=== PATIENT | female | born 1955 | race African-American/Black ===

== ENCOUNTER 2020-05-28 09:23 | Outpatient (CLI) | payer MEDICARE, MEDICAID, SELFPAY ==
--- NOTE | ~2020-05-28 | US_ITS ---
EXAMINATION: US abdomen complete EXAM DATE: 05/28/2020 10:22 INDICATION: Iron metabolism disorder. TECHNIQUE: Multiple grayscale and Doppler images of the complete abdomen were obtained (by a technolo gist who performed the scan) and subsequently reviewed. There is no prior study for comparison. FINDINGS: The abdominal aorta is normal in caliber. Visualized portion IVC is patent. The pancreatic head a nd body are normal in appearance. The pancreatic tail is not visualized. The liver has normal echogenicity and contour. Mildly echogenic liver, probably hepatic steatosis. There is no evidence of intrahepatic biliary duct dilation. Portal venous flow was seen in the hepat opedal, normal direction and has normal Doppler waveform. Common bile duct measures 10 mm, which is for postcholecystectomy status. The gallbladder fossa is u nremarkable. Right kidney: There is normal contour and echogenicity. It measures 7.3 x 3.7 x 5.2 centimeters. T here are no focal renal lesions identified. There is no hydronephrosis. Left kidney: There is normal contour and echogenicity. It measures 10.4 x 5.4 x 4.0 centimeters. T here are no focal renal lesions identified. There is no hydronephrosis. The spleen measures 7.4 centimeters and is morphologically normal. IMPRESSION: 1. Hepatic steatosis. Reviewed, dictated and finalized at location B. IMPRESSION: 1. Hepatic steatosis.
== END 2020-05-28 09:24 | disposition home or self-care (01) ==
PROVIDERS: PCP Emergency Medicine; Visit Provider Emergency Medicine
DX: E83.10 Disorder of iron metabolism, unspecified (principal); K76.0 Fatty (change of) liver, not elsewhere classified
CPT/HCPCS: 76700

== ENCOUNTER 2020-07-22 17:16 | Inpatient (IN) | payer MEDICARE, MEDICAID, SELFPAY ==
--- NOTE | ~2020-07-22 | XR_ITS ---
EXAMINATION: XR chest 1V portable DATE: 07/22/2020 17:52 INDICATION: COVID positive. Shortness of breath and weakness. TECHNIQUE: frontal view of the chest was obtained. COMPARISON: Chest radiograph dated 01/31/2019 FINDINGS: Unchanged right apical pleural-parenchymal scarring. New subtle patchy airspace opacities in the bila teral mid and lower lung zones. No pleural effusion or pneumothorax. The cardiomediastinal silhouette is normal. Severe thoracic spondylosis. IMPRESSION: 1. Subtle patchy airspace opacities in the bilateral mid to lower lung zones concerning for pneumonia with differential including atelectasis and pulmonary edema. Reviewed, dictated and finalized at location A. I CRAFT MAINTENANCE TECHNICIAN IMPRESSION: 1. Subtle patchy airspace opacities in the bilateral mid to lower lung zones co ncerning for pneumonia with differential including atelectasis and pulmonary ed shay.
--- NOTE | ~2020-07-22 | US_ITS ---
EXAMINATION: US abdomen limited DATE: 07/26/2020 09:18 INDICATION: Abnormal liver function tests. TECHNIQUE: Multiple grayscale and Doppler ultrasound images of the abdomen were obtained. COMPARISON: Ultrasound 05/28/2020 FINDINGS: The visualized portions of the head and body of the pancreas are normal. There is diffuse h epatic steatosis. No liver surface nodularity. There is normal flow in main portal vein. The gallblad hal is absent. The common duct is normal and measures 9 mm. Right kidney is normal. IMPRESSION: 1. Diffuse hepatic steatosis. Reviewed, dictated and finalized at location A. SKIMMER
[2020-07-22 17:18] VITALS: BP 101/73; PULSE 111; RESP 24; TEMP 37.1; O2SAT 91
--- NOTE | 2020-07-22 17:23 | ECG_ITS ---
Measurements Intervals [place] Rate: 105 P: 70 KS: 149 QRS: 67 QRSD: 76 T: 47 QT: 343 QTc: 455 Interpretive Statements SINUS TACHYCARDIA NONSPECIFIC ST & T-WAVE ABNORMALITY- ANT/INF LEADS BASELINE ARTIFACT- V5-V6 ABNORMAL ECG Electronically Signed On 07-23-2020 6:56:28 KILN LOADER by Matty Carter D.O.
--- NOTE | 2020-07-22 17:40 | ED.GENADULT ---
HPI - General Adult General Chief complaint: Shortness of Breath/Dyspnea Stated complaint: sob Time Seen by Provider: 07/22/20 17:31 Source: patient History of Present Illness HPI narrative: Patient is a 64 y/o female complaining of severe SOB for last 3-4 days. She states the walking and minimal exertion makes her SOB worse. She has some cough, subjective fever and diarrhea. She had COVID test 8 days ago and was told that it was positive 2 days ago. Related Data Allergies Allergy/AdvReac Type Severity Reaction Status Date / Time codeine Allergy Unknown Unknown Verified 04/24/19 17:54 propoxyphene Allergy Unknown Other Verified 04/24/19 17:54 Review of Systems Constitutional: Constitutional: Denies chills, Denies fever(s), Denies headache(s) and Denies weakness Eyes: Eyes: Denies blurry vision ENT: Denies headache(s) and Denies neck pain Cardiovascular: Cardiovascular: Denies chest pain and Reports dyspnea Respiratory: Respiratory: Reports cough and Reports dyspnea Gastrointestinal: Gastrointestinal: Denies abdominal pain, Reports diarrhea, Denies nausea and Denies vomiting Genitourinary: Genitourinary: Denies hematuria and Denies dysuria Musculoskeletal: Musculoskeletal: Denies back pain and Denies neck pain Neurologic: Denies headache(s) and Denies weakness PMF Social History Social History Gender identity (if verbalized by the patient): Female Exam Const: General: well developed and acute distress Orientation/consciousness: oriented to person, oriented to place, oriented to time and patient oriented x3 HENMT: Head: normocephalic Ears: external ears normal General nose exam: Normal external nose present Eyes: General: appearance normal, both eyes and all related structures Conjunctivae: conjunctivae normal Neck: Neck: normal visual inspection and full ROM Chest: Chest palpation & inspection: normal inspection of the chest and no tenderness Resp: Effort & Inspection: able to speak in complete sentences and tachypneic Cardio: Rate: tachycardic Rhythm: regular rhythm GI: GI Palp: No abdominal tenderness and Yes Soft to palpation Skin: General skin exam: normal color and turgor normal Neuro: General: oriented to person, oriented to place, oriented to time and patient oriented x3 Cognition (Neuro): normal cognition Extrem: General: normal to inspection, full ROM and no pedal edema Psych: Appearance: grossly normal Mental Status: mental status grossly normal Affect: normal affect Course Consultations Consultation #1: Discussed with ELISABETH Trevizo, who agrees to admit. Date: 07/22/20 Time: 18:30 Vital Signs Vital signs: Vital Signs Temperature 37.1 C 07/22/20 17:18 Pulse Rate 111 H 07/22/20 17:18 Respiratory Rate 24 H 07/22/20 17:18 Blood Pressure 101/73 07/22/20 17:18 Pulse Oximetry 91 07/22/20 17:18 Temperature 37.1 C 07/22/20 17:18 Pulse Rate 98 07/22/20 19:06 Respiratory Rate 18 07/22/20 19:06 Blood Pressure 122/78 07/22/20 19:06 Pulse Oximetry 96 07/22/20 19:06 Medical Decision Making Vital Signs Vital Signs: Vital Signs Temperature 37.1 C 07/22/20 17:18 Pulse Rate 111 H 07/22/20 17:18 Respiratory Rate 24 H 07/22/20 17:18 Blood Pressure 101/73 07/22/20 17:18 Pulse Oximetry 91 07/22/20 17:18 Temperature 37.1 C 07/22/20 17:18 Pulse Rate 98 07/22/20 19:06 Respiratory Rate 18 07/22/20 19:06 Blood Pressure 122/78 07/22/20 19:06 Pulse Oximetry 96 07/22/20 19:06 Lab Data Result diagrams: 07/22/20 17:46 07/22/20 17:46 Labs: Lab Results 07/22/20 07/22/20 Range/Units 17:46 17:46 WBC 6.0 (4.5-10.0) K/mm3 RBC 5.21 (4.2-5.4) M/mm3 Hgb 14.1 (12.0-15.0) g/dL Hct 43.2 (37.0-47.0) % MCV 82.9 (80-100) fl MCH 27.1 (26-34) pg MCHC 32.6 (32-36) g/dl RDW 13.0 (11.5-14.5) % Plt Count 161 (150-375)
[2020-07-22 17:57] LABS: Basophils Percent Auto 0.2 % (0.2-1.2); Eosinophils Percent Auto 0.3 % (0-4.4); Hematocrit 43.2 % (37.0-47.0); Hemoglobin 14.1 g/dL (12.0-15.0); Immature Granulocyte Absolute 0.02 K/mm3 (0.00-0.031); Immature Granulocyte Percent A 0.3 % (0-0.5); Lymphocytes Absolute Auto 1.49 K/mm3 (0.9-3.2); Mean Corpuscular HGB Conc 32.6 g/dl (32-36); Mean Corpuscular Hemoglobin 27.1 pg (26-34); Mean Corpuscular Volume 82.9 fl (80-100); Mean Platelet Volume 10.8 fl (7.4-10.4); Monocytes Absolute Auto 0.6 K/mm3 (0.1-0.6); Monocytes Percent Auto 9.4 % (2.6-8.5); Neutrophils Absolute Auto 3.9 K/mm3 (1.3-6.7); Neutrophils Percent Auto 64.8 % (45.5-73.1); Platelet Count Result 161 k/mm3 (150-375); Red Blood Count 5.21 M/mm3 (4.2-5.4)
[2020-07-22] MEDS: SODIUM CHLORIDE 0.9% IV 1,000 ML 999 ML IV CONT (18:06)
[2020-07-22 18:10] LABS: Alanine Aminotransferase 87 U/L (4-35); Alkaline Phosphatase 111 U/L (38-126); Anion Gap 9 mmol/L (8-16); Aspartate Amino Transferase 82 U/L (14-36); Bilirubin,Total 0.7 mg/dL (0.2-1.3); Blood Urea Nitrogen 23 mg/dL (7-17); Calcium 9.1 mg/dL (8.4-10.2); Carbon Dioxide 29 mmol/L (22-30); Chloride 98 mmol/L (98-107); Estimated CRCL calculation 54 ml/min; Estimated Glomerular Filt Rate 60; Glucose 117 mg/dL (65-105); Potassium 4.1 mmol/L (3.4-5.0); Sodium 136 mmol/L (137-145)
[2020-07-22 18:15] VITALS: PULSE 78; O2SAT 89
[2020-07-22 19:06] VITALS: BP 122/78; PULSE 98; RESP 18; O2SAT 96
--- NOTE | 2020-07-22 19:07 | PM.IMHP ---
H&P: HPI History of Present Illness Date/Time: 07/22/20 19:07 Chief complaint: hypoxia, covid infection Narrative: Chetna Steele is a 64 year old female [facility] Social History Social History Gender identity (if verbalized by the patient): Female Meds Home Medications and Allergies Allergies Allergy/AdvReac Type Severity Reaction Status Date / Time codeine Allergy Unknown Unknown Verified 04/24/19 17:54 propoxyphene Allergy Unknown Other Verified 04/24/19 17:54 Vital Signs Vital Signs - 24 hr 07/22/20 17:18 07/22/20 18:15 07/22/20 19:06 Temperature 98.7 F Pulse Rate 111 H 78 98 Respiratory Rate 24 H 18 Blood Pressure 101/73 122/78 Pulse Oximetry 91 89 L 96 H&P: Results Labs Labs: Short CBC 07/22/20 Range/Units 17:46 WBC 6.0 (4.5-10.0) K/mm3 Hgb 14.1 (12.0-15.0) g/dL Hct 43.2 (37.0-47.0) % Plt Count 161 (150-375) k/mm3 [facility] 07/22/20 17:46 Sodium 136 L Potassium 4.1 Chloride 98 Carbon Dioxide 29 BUN 23 H Creatinine 1.10 H Glucose 117 H Calcium 9.1 Liver Function 07/22/20 Range/Units 17:46 Total Bilirubin 0.7 (0.2-1.3) mg/dL AST 82 H (14-36) U/L ALT 87 H (4-35) U/L Alkaline Phosphatase 111 (38-126) U/L Albumin 4.0 (3.5-5.1) g/dL
[2020-07-22] MEDS: DEXAMETHASONE 2 MG TABLET 6 MG PO (19:14)
[2020-07-22] MEDS: REMDESIVIR 200 MG/NS 250 ML 200 MG/250 ML BAG 250 MG IVPB (19:18)
--- NOTE | 2020-07-22 19:45 | PC.NURSE ---
This patient, Chetna Steele, was admitted to [facility] Surg Room 312-01. Patient/family oriented to hospital policies and general routines including ID bracelet, bed and alarms, visiting hours, pain management, procedures, bathroom and other care routines, personal items, smoking policy, room service/diet, and visiting hours. Information on how to activate the Rapid Response Team has been discussed. Patient/Family are encouraged to report perceived risks to care and to ask questions if they do not understand what they are told or what they should do.
[2020-07-22 20:00] VITALS: BP 133/69; PULSE 93; RESP 22; TEMP 37.4; O2SAT 95; BMI 39.0
[2020-07-22 22:13] VITALS: BP 133/69; PULSE 93; RESP 22; TEMP 37.4; O2SAT 95; BMI 39.0
[2020-07-23] VITALS (8 sets, daily range): BP systolic 117–146; BP diastolic 60–71; PULSE 60–82; RESP 18–20; TEMP 36.1–36.9; O2SAT 91–95
[2020-07-23 06:49] LABS: Alanine Aminotransferase 90 U/L (4-35)
[2020-07-23 07:49] LABS: Estimated CRCL calculation 54 ml/min; Estimated Glomerular Filt Rate > 60
[2020-07-23 08:51] LABS: Hematocrit 39.9 % (37.0-47.0); Hemoglobin 12.7 g/dL (12.0-15.0); Immature Granulocyte Absolute 0.02 K/mm3 (0.00-0.031); Immature Granulocyte Percent A 0.5 % (0-0.5); Lymphocytes Absolute Auto 0.88 K/mm3 (0.9-3.2); Lymphocytes Percent Auto 22.8 % (18.3-44.2); Mean Corpuscular HGB Conc 31.8 g/dl (32-36); Mean Corpuscular Hemoglobin 26.4 pg (26-34); Mean Platelet Volume 11.3 fl (7.4-10.4); Monocytes Absolute Auto 0.3 K/mm3 (0.1-0.6); Neutrophils Absolute Auto 2.7 K/mm3 (1.3-6.7); Neutrophils Percent Auto 69.7 % (45.5-73.1); Platelet Count Result 182 k/mm3 (150-375); Red Blood Count 4.81 M/mm3 (4.2-5.4); Red Cell Distribution Width 13.1 % (11.5-14.5); White Blood Count 3.9 K/mm3 (4.5-10.0)
[2020-07-23 08:54] LABS: Alanine Aminotransferase 94 U/L (4-35); Albumin Level 3.6 g/dL (3.5-5.1); Alkaline Phosphatase 99 U/L (38-126); Anion Gap 8 mmol/L (8-16); Aspartate Amino Transferase 75 U/L (14-36); Bilirubin,Total 0.3 mg/dL (0.2-1.3); Blood Urea Nitrogen 22 mg/dL (7-17); Calcium 8.8 mg/dL (8.4-10.2); Carbon Dioxide 28 mmol/L (22-30); Chloride 102 mmol/L (98-107); Estimated CRCL calculation 54 ml/min; Estimated Glomerular Filt Rate > 60; Glucose 134 mg/dL (65-105); Potassium 4.3 mmol/L (3.4-5.0); Sodium 138 mmol/L (137-145)
[2020-07-23] MEDS: METOPROLOL SUCCINATE EXT REL 50 MG TABCR PO (08:57)
[2020-07-23] MEDS: BENZONATATE 100 MG CAPSULE PO (08:57)
[2020-07-23] MEDS: hydroCHLOROthiazide 25 MG TABLET PO (08:58)
[2020-07-23] MEDS: PANTOPRAZOLE 40 MG TABLET PO (08:58)
[2020-07-23] MEDS: DEXAMETHASONE 2 MG TABLET 6 MG PO (08:58)
[2020-07-23] MEDS: DOXAZOSIN MESYLATE 2 MG TABLET PO (08:58)
[2020-07-23] MEDS: SPIRONOLACTONE 25 MG TABLET PO (08:58)
[2020-07-23] MEDS: LOSARTAN POTASSIUM 100 MG TABLET PO (08:58)
[2020-07-23] MEDS: ALBUTEROL SULFATE (*SP) AEROSOL 1 PUFF 2 PUFF INHALATION ×2 (12:06→15:45)
--- NOTE | 2020-07-23 13:35 | PM.IMHP ---
H&P: HPI History of Present Illness Date/Time: 07/23/20 13:35 Chief complaint: hypoxia, covid infection Narrative: Chetna Steele is a pleasant 64 year old female with medical history of HTN and GERD who presented to the ER on 07/22 with complaints of worsening SOB and cough for 2-3 days prior to arrival on 07/22. She tested positive for COVID on 07/16. Patient states her symptoms started roughly 07/14 with chills, shortness of breath, headaches, and non-bloody diarrhea. She got tested on that day and was positive on 07/16. She notes she was having mild symptoms up until 3-4 days ago where her SOB worsened, as well as her diarrhea. She notes that Benzonatate and Lomotil has not improved her symptoms. Her worsening symptoms got to a point where she decided to proceed to the ED for further evaluation where she was found to be hypoxic on RA and placed on supplemental O2. CXR was consistent with pneumonia. Given her recent diagnosis of COVID and findings suggestive of pneumonia, she was placed on remdesivir and decadron therapy and admitted under this setting. Today, patient states she feels overall better then when she first came to the hospital. SOB improved, as well as her diarrhea. She has no associated abdominal pain. She reports her appetite has improved as well. Her cough is nonproductive. She notes that she has had been wearing masks and socially distancing when out in public, and in fact, gets emotional stating I did everything I was told to do and have no idea I got this . No other complaints at the moment. Denies current subjective f/c/s, myalgias/arthralgias, loss of taste/smell, dizziness, lightheadedness, changes in v/h, cp/palpitations, n/v, abd pain,dysuria, hematuria, cloudy urine, calf pain/swelling. Review of Systems Review of Systems: All systems reviewed & are unremarkable except as noted in HPI and below PMFSH Past Medical History Medical History Essential hypertension GERD (gastroesophageal reflux disease) Surgical History Surgical History History of History of cholecystectomy Family History Family History Mother Diabetes mellitus Social History Social History (Updated 07/23/20 @ 13:49 by Jama Epps PA-C) Social History: Patient lives at home alone. She is no longer working. She wishes to list her son, Vinicius, as her surrogate MDM. She wishes to be a full code. Her PCP is Dr. Chavarria Smoking status: Former smoker Smoking end date: 08/23/89 Additional smoking assessment comments: Smoked 2ppd x 6 years. Quit 30 years ago Alcohol intake: never Substance use: never Gender identity (if verbalized by the patient): Female Spiritual care concerns: No Meds Home Medications and Allergies Home Medications Medication Instructions Recorded Confirmed Type acetaminophen 500 mg PO Q6H PRN 07/22/20 07/22/20 History benzonatate 100 mg PO Q8H PRN 07/22/20 07/22/20 History diphenoxylate-atropine 1 tablet PO Q6H PRN 07/22/20 07/22/20 History doxazosin 2 mg PO DAILY 07/22/20 07/22/20 History hydrochlorothiazide 25 mg PO DAILY 07/22/20 07/22/20 History losartan 100 mg PO DAILY 07/22/20 07/22/20 History metoprolol succinate 50 mg PO DAILY 07/22/20 07/22/20 History omeprazole 20 mg PO DAILY 07/22/20 07/22/20 History spironolactone 25 mg PO DAILY 07/22/20 07/22/20 History Allergies Allergy/AdvReac Type Severity Reaction Status Date / Time codeine Allergy Unknown Unknown Verified 07/22/20 20:07 propoxyphene Allergy Unknown Other Verified 07/22/20 20:07 Vital Signs Vital Signs - 24 hr 07/22/20 17:18 07/22/20 18:15 07/22/20 19:06 Temperature 98.7 F Pulse Rate 111 H 78 98 Respiratory Rate 24 H 18 Blood Pressure 101/73 122/78 Pulse Oximetry 91 89 L 96 07/22/20 20:00 07/22/20 22:13 07/23/20 00:00 Temperature 99.4
[2020-07-23] MEDS: EUCERIN CREAM 120 GM JAR 1 APPLIC TOPICAL (14:12)
[2020-07-23] MEDS: guaiFENesin 12 HR 600 MG TABCR PO ×2 (14:16→21:48)
[2020-07-23] MEDS: SACCHAROMYCES BOULARDII 250 MG CAPSULE PO (18:01)
[2020-07-23] MEDS: ALBUTEROL SULFATE (*SP) INHALER 1 PUFF (21:00)
[2020-07-23] MEDS: ENOXAPARIN 40 MG/0.4 ML SYRINGE SUB-Q (21:48)
[2020-07-23] MEDS: REMDESIVIR 100 MG/NS 250 ML 100 MG/250 ML BAG 250 MG IVPB (21:49)
[2020-07-24] VITALS (8 sets, daily range): BP systolic 127–138; BP diastolic 52–64; PULSE 58–66; RESP 18–22; TEMP 36.3–36.7; O2SAT 91–96
[2020-07-24 06:54] LABS: Basophils Percent Auto 0.2 % (0.2-1.2); Hemoglobin 13.3 g/dL (12.0-15.0); Immature Granulocyte Absolute 0.02 K/mm3 (0.00-0.031); Immature Granulocyte Percent A 0.3 % (0-0.5); Lymphocytes Absolute Auto 1.02 K/mm3 (0.9-3.2); Lymphocytes Percent Auto 16.7 % (18.3-44.2); Mean Corpuscular HGB Conc 32.4 g/dl (32-36); Mean Corpuscular Hemoglobin 27.1 pg (26-34); Mean Corpuscular Volume 83.7 fl (80-100); Mean Platelet Volume 10.9 fl (7.4-10.4); Monocytes Absolute Auto 0.6 K/mm3 (0.1-0.6); Monocytes Percent Auto 10.5 % (2.6-8.5); Neutrophils Absolute Auto 4.4 K/mm3 (1.3-6.7); Neutrophils Percent Auto 72.3 % (45.5-73.1); Platelet Count Result 207 k/mm3 (150-375); Red Cell Distribution Width 13.2 % (11.5-14.5); White Blood Count 6.1 K/mm3 (4.5-10.0)
[2020-07-24 07:13] LABS: Alanine Aminotransferase 95 U/L (4-35); Albumin Level 3.7 g/dL (3.5-5.1); Alkaline Phosphatase 90 U/L (38-126); Anion Gap 4 mmol/L (8-16); Aspartate Amino Transferase 69 U/L (14-36); Bilirubin,Total 0.4 mg/dL (0.2-1.3); Blood Urea Nitrogen 31 mg/dL (7-17); CRP 4.5 mg/dL (<1.0); Calcium 9.4 mg/dL (8.4-10.2); Carbon Dioxide 31 mmol/L (22-30); Chloride 101 mmol/L (98-107); Estimated CRCL calculation 54 ml/min; Estimated Glomerular Filt Rate > 60; Glucose 150 mg/dL (65-105); Lactate Dehydrogenase 889 U/L (313-618); Magnesium 2.2 mg/dL (1.6-2.3); Potassium 4.9 mmol/L (3.4-5.0); Sodium 136 mmol/L (137-145)
[2020-07-24] MEDS: DEXAMETHASONE 2 MG TABLET 6 MG PO (08:50)
[2020-07-24] MEDS: SACCHAROMYCES BOULARDII 250 MG CAPSULE PO ×3 (08:51→17:47)
[2020-07-24] MEDS: guaiFENesin 12 HR 600 MG TABCR PO ×2 (08:51→20:40)
[2020-07-24] MEDS: METOPROLOL SUCCINATE EXT REL 50 MG TABCR PO (08:51)
[2020-07-24] MEDS: PANTOPRAZOLE 40 MG TABLET PO (08:51)
[2020-07-24] MEDS: SPIRONOLACTONE 25 MG TABLET PO (08:51)
[2020-07-24] MEDS: hydroCHLOROthiazide 25 MG TABLET PO (08:51)
[2020-07-24] MEDS: LOSARTAN POTASSIUM 100 MG TABLET PO (08:51)
[2020-07-24] MEDS: DOXAZOSIN MESYLATE 2 MG TABLET PO (08:51)
[2020-07-24] MEDS: ALBUTEROL SULFATE (*SP) AEROSOL 1 PUFF 2 PUFF INHALATION ×5 (08:51→20:20)
[2020-07-24] MEDS: ENOXAPARIN 40 MG/0.4 ML SYRINGE SUB-Q ×2 (08:51→20:40)
[2020-07-24] MEDS: EUCERIN CREAM 120 GM JAR 1 APPLIC TOPICAL (08:52)
[2020-07-24 09:09] LABS: Atypical Lymphocytes Present; Platelet Estimate Adequate (Adequate)
--- NOTE | 2020-07-24 17:40 | PM.IMPN ---
Progress Note: A&P Assessment and Plan (1) Pneumonia due to COVID-19 virus: Code(s): U07.1 - COVID-19; J12.89 - Other viral pneumonia Status: Acute Assessment and Plan: Patient reports testing positive on 07/14 around when her symptoms first started. CXR suggestive of pneumonia; likely due to COVID. Still on 2L O2 NC. Symptomatically has improved. Started on remdesivir and decadron therapy in the ED Continue Remdesivir (3/5) Continue dexamethasone (day 3) Continue supportive care with Tylenol, PRN albuterol, Mucinex, IS Supplemental O2; wean as tolerated Lomotil as needed for diarrhea; will continue probiotic for now Monitor closely Daily labs (2) Acute respiratory failure with hypoxia: Code(s): J96.01 - Acute respiratory failure with hypoxia Status: Acute Assessment and Plan: Likely secondary from COVID pneumonia. On 2L O2 currently Wean O2 as tolerated Treatment as outlined above (3) GERD (gastroesophageal reflux disease): Code(s): K21.9 - Gastro-esophageal reflux disease without esophagitis Status: Acute Assessment and Plan: PPI therapy (4) Essential hypertension: Code(s): I10 - Essential (primary) hypertension Status: Acute Assessment and Plan: BP stable 130s sys this morning Continue home antihypertensives Monitor Subjective Date/time seen: 07/24/20 17:40 Interval history: Patient is a pleasant 64 year old female with medical history of HTN and GERD who is seen in follow up for COVID PNA and acute respiratory failure with hypoxia likely due to same. patient states she feels well today. Less SOB, particularly when ambulating. Cough has improved, as well as, her headaches and diarrhea. No other complaints. Denies f/c/s, dizziness, lightheadedness, cp/palpitations, abd pain, dysuria, hematuria, cloudy urine, calf pain/swelling. Review of Systems Review of Systems: All systems reviewed & are unremarkable except as noted in HPI and below Exam Narrative: Exam Narrative: General: Patient sitting upright in chair at time of visit in no acute distress. HEENT: Normocephalic, EOMI, oral mucosa moist. Cardiovascular: Rate and rhythm are regular. No notable murmur, rub, or gallop. Respiratory: Diffuse coarse breath sounds-kurt. Non-labored breathing. On 2L O2 NC at time of visit Abdomen: Soft, non-tender, non-distended, bowel sounds present. Extremities: Peripheral pulses intact. No edema. Neuro: No focal neurological deficits. Speech is clear. Objective Data Vital Signs Vital Signs: Last Vital Signs Temp 98.0 F 07/24/20 16:00 Pulse 58 L 07/24/20 16:00 Resp 18 07/24/20 16:00 BP 134/52 L 07/24/20 16:00 Pulse Ox 96 07/24/20 16:00 Intake/Output Intake/Output: Intake & Output 07/21/20 07/22/20 07/23/20 07/24/20 23:59 23:59 23:59 23:59 Intake Total 1000 1750 1430 Output Total 475 950 Balance 1000 1275 480 Meds/Results Medications: Active Medications Generic Name Dose Route Start Last Admin Trade Name Freq PRN Reason Stop Dose Admin Acetaminophen 650 mg 07/23/20 08:04 Acetaminophen 325 Mg Tablet PO Q6H PRN Mild Pain (1-3) or Fever Albuterol 2 puff 07/23/20 08:00 07/24/20 15:45 Albuterol Sulfate (*Sp) Aerosol 1 Puff INHALATION 2 puff QIDRT GISELLA Administration Benzonatate 100 mg 07/23/20 05:10 07/23/20 08:57 Benzonatate 100 Mg Capsule PO 100 mg Q8H PRN Administration Cough Dexamethasone 6 mg 07/22/20 18:20 07/24/20 08:50 Dexamethasone 2 Mg Tablet PO 07/31/20 08:01 6 mg DAILY@0800 GISELLA Administration Diphenoxylate HCl/Atropine 1 tablet 07/23/20 04:32 Diphenoxylate/Atropine (*Crx) 2.5 Mg Tablet PO Q6H PRN Diarrhea Doxazosin Mesylate 2 mg 07/23/20 09:00 07/24/20 08:51 Doxazosi
[2020-07-24] MEDS: REMDESIVIR 100 MG/NS 250 ML 100 MG/250 ML BAG 250 MG IVPB (23:32)
[2020-07-25] VITALS (9 sets, daily range): BP systolic 111–137; BP diastolic 55–72; PULSE 55–67; RESP 16–20; TEMP 35.7–36.8; O2SAT 91–97
[2020-07-25 06:27] LABS: Basophils Percent Auto 0.2 % (0.2-1.2); Hematocrit 41.7 % (37.0-47.0); Hemoglobin 13.5 g/dL (12.0-15.0); Immature Granulocyte Absolute 0.05 K/mm3 (0.00-0.031); Immature Granulocyte Percent A 0.5 % (0-0.5); Lymphocytes Absolute Auto 1.71 K/mm3 (0.9-3.2); Lymphocytes Percent Auto 16.9 % (18.3-44.2); Mean Corpuscular HGB Conc 32.4 g/dl (32-36); Mean Corpuscular Hemoglobin 26.7 pg (26-34); Mean Corpuscular Volume 82.4 fl (80-100); Mean Platelet Volume 10.7 fl (7.4-10.4); Monocytes Absolute Auto 0.7 K/mm3 (0.1-0.6); Monocytes Percent Auto 6.6 % (2.6-8.5); Neutrophils Absolute Auto 7.7 K/mm3 (1.3-6.7); Neutrophils Percent Auto 75.8 % (45.5-73.1); Platelet Count Result 265 k/mm3 (150-375); Red Blood Count 5.06 M/mm3 (4.2-5.4); White Blood Count 10.1 K/mm3 (4.5-10.0)
[2020-07-25 06:46] LABS: Alanine Aminotransferase 372 U/L (4-35); Albumin Level 3.8 g/dL (3.5-5.1); Alkaline Phosphatase 100 U/L (38-126); Anion Gap 7 mmol/L (8-16); Aspartate Amino Transferase 328 U/L (14-36); Bilirubin,Total 0.4 mg/dL (0.2-1.3); Blood Urea Nitrogen 27 mg/dL (7-17); Calcium 9.3 mg/dL (8.4-10.2); Carbon Dioxide 28 mmol/L (22-30); Chloride 100 mmol/L (98-107); Estimated CRCL calculation 59 ml/min; Estimated Glomerular Filt Rate > 60; Glucose 152 mg/dL (65-105); Magnesium 1.9 mg/dL (1.6-2.3); Potassium 4.2 mmol/L (3.4-5.0); Sodium 135 mmol/L (137-145)
[2020-07-25 07:23] LABS: Atypical Lymphocytes Present; Platelet Estimate Adequate (Adequate)
[2020-07-25] MEDS: ALBUTEROL SULFATE (*SP) AEROSOL 1 PUFF 2 PUFF INHALATION ×4 (08:04→20:39)
[2020-07-25] MEDS: DEXAMETHASONE 2 MG TABLET 6 MG PO (08:17)
[2020-07-25] MEDS: LOSARTAN POTASSIUM 100 MG TABLET PO (08:18)
[2020-07-25] MEDS: guaiFENesin 12 HR 600 MG TABCR PO ×2 (08:18→21:00)
[2020-07-25] MEDS: SACCHAROMYCES BOULARDII 250 MG CAPSULE PO ×3 (08:18→17:41)
[2020-07-25] MEDS: SPIRONOLACTONE 25 MG TABLET PO (08:18)
[2020-07-25] MEDS: ENOXAPARIN 40 MG/0.4 ML SYRINGE SUB-Q ×2 (08:18→21:00)
[2020-07-25] MEDS: METOPROLOL SUCCINATE EXT REL 50 MG TABCR PO (08:18)
[2020-07-25] MEDS: PANTOPRAZOLE 40 MG TABLET PO (08:18)
[2020-07-25] MEDS: hydroCHLOROthiazide 25 MG TABLET PO (08:18)
[2020-07-25] MEDS: EUCERIN CREAM 120 GM JAR 1 APPLIC TOPICAL (08:18)
[2020-07-25] MEDS: DOXAZOSIN MESYLATE 2 MG TABLET PO (08:18)
--- NOTE | 2020-07-25 14:02 | PM.IMPN ---
Progress Note: A&P Assessment and Plan (1) Pneumonia due to COVID-19 virus: Code(s): U07.1 - COVID-19; J12.89 - Other viral pneumonia Status: Acute Assessment and Plan: Patient reports testing positive on 07/14 around when her symptoms first started. CXR suggestive of pneumonia; likely due to COVID. Still on 1L O2 NC. Symptomatically has improved. Started on remdesivir and decadron therapy in the ED Will need to hold Remdesivir (10/25) due to elevated LFTs Continue dexamethasone (day 4) Continue supportive care with Tylenol, PRN albuterol, Mucinex, IS Supplemental O2; wean as tolerated Lomotil as needed for diarrhea; will continue probiotic for now Monitor closely Daily labs (2) Acute respiratory failure with hypoxia: Code(s): J96.01 - Acute respiratory failure with hypoxia Status: Acute Assessment and Plan: Likely secondary from COVID pneumonia. On 1L O2 currently Wean O2 as tolerated Treatment as outlined above (3) GERD (gastroesophageal reflux disease): Code(s): K21.9 - Gastro-esophageal reflux disease without esophagitis Status: Acute Assessment and Plan: PPI therapy (4) Essential hypertension: Code(s): I10 - Essential (primary) hypertension Status: Acute Assessment and Plan: BP stable 130s sys this morning Continue home antihypertensives Monitor (5) Elevated LFTs: Code(s): R79.89 - Other specified abnormal findings of blood chemistry Status: Acute Assessment and Plan: Patient has had mildly elevated LFTs previous days, however, now has significant increase. initially felt due to acute COVID infection, now possibly Remdesivir adding to elevation. Tysoni is WNL. She is s/p cholecystectomy. No known history of liver disease hold remdesivir Switch Tylenol to ibuprofen Monitor tomorrow, if no improvement consider imaging of liver Subjective Date/time seen: 07/25/20 14:02 Interval history: Patient is a pleasant 64 year old female with medical history of HTN and GERD who is seen in follow up for COVID PNA and acute respiratory failure with hypoxia likely due to same. Patient states she thinks her breathing is a bit more labored since she was taken down to 1L O2, but otherwise not many complaints. She is a bit tired from not sleeping well last night. Cough, diarrhea and headache have improved. No other complaints. Denies f/c/s, dizziness, lightheadedness, cp/palpitations, abd pain, dysuria, hematuria, cloudy urine, calf pain/swelling. Review of Systems Review of Systems: All systems reviewed & are unremarkable except as noted in HPI and below Exam Narrative: Exam Narrative: General: Patient lying supine in bed at time of visit in no acute distress. HEENT: Normocephalic, EOMI, oral mucosa moist. Cardiovascular: Rate and rhythm are regular. No notable murmur, rub, or gallop. Respiratory: Diffuse coarse breath sounds-kurt. Non-labored breathing. On 1L O2 NC at time of visit Abdomen: Soft, non-tender, non-distended, bowel sounds present. Extremities: Peripheral pulses intact. No edema. Neuro: No focal neurological deficits. Speech is clear. Objective Data Vital Signs Vital Signs: Last Vital Signs Temp 97.0 F L 07/25/20 12:00 Pulse 67 07/25/20 13:18 Resp 20 07/25/20 13:18 BP 120/55 L 07/25/20 12:00 Pulse Ox 93 07/25/20 13:18 Intake/Output Intake/Output: Intake & Output 07/22/20 07/23/20 07/24/20 07/25/20 23:59 23:59 23:59 23:59 Intake Total 1000 1750 1670 1020 Output Total 475 950 Balance 1000 2539 647 7253 Meds/Results Medications: Active Medications Generic Name Dose Route Start Last Admin Trade Name Freq PRN Reason Stop Dose Admin Acetaminophen 650 mg 07/23/20 08:04 Acetaminophen 32
[2020-07-25] MEDS: CALCIUM CARBONATE (TUMS) 500 MG (200 MG ELEMENTAL) PO (15:54)
[2020-07-26] VITALS (11 sets, daily range): BP systolic 113–131; BP diastolic 23–84; PULSE 54–68; RESP 16–20; TEMP 35.7–36.8; O2SAT 89–98
[2020-07-26 06:32] LABS: Basophils Percent Auto 0.3 % (0.2-1.2); Hematocrit 42.1 % (37.0-47.0); Hemoglobin 13.6 g/dL (12.0-15.0); Immature Granulocyte Absolute 0.07 K/mm3 (0.00-0.031); Immature Granulocyte Percent A 0.7 % (0-0.5); Lymphocytes Absolute Auto 1.92 K/mm3 (0.9-3.2); Lymphocytes Percent Auto 18.1 % (18.3-44.2); Mean Corpuscular HGB Conc 32.3 g/dl (32-36); Mean Corpuscular Hemoglobin 26.4 pg (26-34); Mean Corpuscular Volume 81.7 fl (80-100); Monocytes Absolute Auto 0.9 K/mm3 (0.1-0.6); Monocytes Percent Auto 8.9 % (2.6-8.5); Neutrophils Absolute Auto 7.6 K/mm3 (1.3-6.7); Platelet Count Result 286 k/mm3 (150-375); Red Blood Count 5.15 M/mm3 (4.2-5.4); Red Cell Distribution Width 12.7 % (11.5-14.5); White Blood Count 10.6 K/mm3 (4.5-10.0)
[2020-07-26 06:45] LABS: Alanine Aminotransferase 349 U/L (4-35); Albumin Level 3.8 g/dL (3.5-5.1); Alkaline Phosphatase 101 U/L (38-126); Anion Gap 7 mmol/L (8-16); Aspartate Amino Transferase 150 U/L (14-36); Bilirubin,Total 0.6 mg/dL (0.2-1.3); Blood Urea Nitrogen 26 mg/dL (7-17); CRP 1.4 mg/dL (<1.0); Calcium 9.3 mg/dL (8.4-10.2); Carbon Dioxide 29 mmol/L (22-30); Chloride 99 mmol/L (98-107); Estimated CRCL calculation 59 ml/min; Estimated Glomerular Filt Rate > 60; Glucose 146 mg/dL (65-105); Lactate Dehydrogenase 910 U/L (313-618); Magnesium 1.8 mg/dL (1.6-2.3); Potassium 4.2 mmol/L (3.4-5.0); Sodium 135 mmol/L (137-145)
[2020-07-26 07:48] LABS: Atypical Lymphocytes Present; Platelet Estimate Adequate (Adequate)
[2020-07-26] MEDS: ALBUTEROL SULFATE (*SP) AEROSOL 1 PUFF 2 PUFF INHALATION ×4 (08:32→21:23)
[2020-07-26] MEDS: SACCHAROMYCES BOULARDII 250 MG CAPSULE PO ×3 (09:40→17:26)
[2020-07-26] MEDS: SPIRONOLACTONE 25 MG TABLET PO (09:40)
[2020-07-26] MEDS: DOXAZOSIN MESYLATE 2 MG TABLET PO (09:40)
[2020-07-26] MEDS: hydroCHLOROthiazide 25 MG TABLET PO (09:40)
[2020-07-26] MEDS: DEXAMETHASONE 2 MG TABLET 6 MG PO (09:40)
[2020-07-26] MEDS: EUCERIN CREAM 120 GM JAR 1 APPLIC TOPICAL (09:41)
[2020-07-26] MEDS: ENOXAPARIN 40 MG/0.4 ML SYRINGE SUB-Q ×2 (09:41→21:29)
[2020-07-26] MEDS: PANTOPRAZOLE 40 MG TABLET PO (09:41)
[2020-07-26] MEDS: METOPROLOL SUCCINATE EXT REL 50 MG TABCR PO (09:41)
[2020-07-26] MEDS: LOSARTAN POTASSIUM 100 MG TABLET PO (09:41)
[2020-07-26] MEDS: guaiFENesin 12 HR 600 MG TABCR PO ×2 (09:41→21:29)
--- NOTE | 2020-07-26 12:49 | PM.IMPN ---
Progress Note: A&P Assessment and Plan (1) Pneumonia due to COVID-19 virus: Code(s): U07.1 - COVID-19; J12.89 - Other viral pneumonia Status: Acute Assessment and Plan: Patient reports testing positive on 07/14 around when her symptoms first started. CXR suggestive of pneumonia; likely due to COVID. Still reportedly on 1L O2 NC, although was on RA at time of visit and breathing well. Symptomatically has improved. Started on remdesivir and decadron therapy in the ED Will need to hold Remdesivir (3) due to elevated LFTs Continue dexamethasone (day 5) Continue supportive care with ibuprofen, PRN albuterol, Mucinex, IS Supplemental O2; wean as tolerated Lomotil as needed for diarrhea; will continue probiotic for now Monitor closely Daily labs Will consider discharge tomorrow if continued improvement. Home O2 eval prior to discharge (2) Acute respiratory failure with hypoxia: Code(s): J96.01 - Acute respiratory failure with hypoxia Status: Acute Assessment and Plan: Likely secondary from COVID pneumonia. On 1L O2 currently, but patient appeared to have taken off her oxygen at time of visit. Wean O2 as tolerated Treatment as outlined above (3) GERD (gastroesophageal reflux disease): Code(s): K21.9 - Gastro-esophageal reflux disease without esophagitis Status: Acute Assessment and Plan: PPI therapy (4) Essential hypertension: Code(s): I10 - Essential (primary) hypertension Status: Acute Assessment and Plan: BP stable 130s sys this morning Continue home antihypertensives Monitor (5) Elevated LFTs: Code(s): R79.89 - Other specified abnormal findings of blood chemistry Status: Acute Assessment and Plan: Patient has had mildly elevated LFTs previous days, however, significantly increased on 07/25; trending down today. Initially felt due to acute COVID infection, now possibly Remdesivir adding to elevation. Bili is WNL. She is s/p cholecystectomy. She had RUQ US today which revealed hepatic steatosis and when questioned, she states she has known about this diagnosis and has seen a Liver specialist in the past; she did not provide this information on admission to the hospital hold remdesivir, refrain from Tylenol Continue with ibuprofen as needed for fever F/u with PCP and Liver specialist as outpatient (6) Hepatic steatosis: Code(s): K76.0 - Fatty (change of) liver, not elsewhere classified Status: Acute Assessment and Plan: Evident on RUQ US on 07/26. Patient states she has known about this diagnosis. Has seen a communications writer in the past See above a/p F/u with PCP/ Unishear Operator Subjective Date/time seen: 07/26/20 12:49 Interval history: Patient is a pleasant 64 year old female with medical history of HTN and GERD who is seen in follow up for COVID PNA and acute respiratory failure with hypoxia likely due to same. Patient states she thinks her breathing is a bit better today if not, then stable from yesterday. She notes an overall improvement. Cough improved. Headaches and diarrhea improved. No other complaints. Denies f/c/s, dizziness, lightheadedness, cp/palpitations, abd pain, dysuria, hematuria, cloudy urine, calf pain/swelling. Review of Systems Review of Systems: All systems reviewed & are unremarkable except as noted in HPI and below Exam Narrative: Exam Narrative: General: Patient lying supine in bed at time of visit in no acute distress. HEENT: Normocephalic, EOMI, oral mucosa moist. Cardiovascular: Rate and rhythm are regular. No notable murmur, rub, or gallop. Respiratory: Diffuse coarse breath sounds-kurt. Non-labored breathing. On RA at time of visit, although I believe
--- NOTE | 2020-07-26 16:39 | HOMEO2EVAL ---
Home Oxygen Evaluation RC: Home Oxygen (O2) Evaluation Start: 07/26/20 15:45 Freq: ONCE Status: Active Protocol: RPE Activity Type Activity Date Activity User E-Sign Co-Sign Detail Recorded Client Recorded Date Recorded By Document 07/26/20 15:50 DJO [id number] 07/26/20 16:38 DJO Document 07/26/20 15:55 DJO [id number] 07/26/20 16:38 DJO Document 07/26/20 16:05 DJO [id number] 07/26/20 16:38 DJO 07/26/20 07/26/20 07/26/20 15:50 15:55 16:05 Home O2 Evaluation Test Phase Resting Exercise Resting Oxygen Delivery Room Air Room Air Room Air Pulse Oximetry (90-100 %) 92 89 L 93 Home Oxygen Evaluation Comments NO HOME O2 NEEDED AT THIS TIME. Treatment Charges O2 Evaluation
--- NOTE | 2020-07-26 16:39 | PCRCNOTE ---
HOME O2 EVAL COMPLETED. NO HOME O2 NEEDED AT THIS TIME.
[2020-07-27] VITALS: BP 122/61; PULSE 58; RESP 20; TEMP 36.2; O2SAT 93
[2020-07-27 04:00] VITALS: BP 132/67; PULSE 58; RESP 20; TEMP 36.6; O2SAT 92
[2020-07-27] MEDS: IBUPROFEN 400 MG TABLET PO (05:02)
[2020-07-27 06:32] LABS: Basophils Percent Auto 0.1 % (0.2-1.2); Eosinophils Percent Auto 0.1 % (0-4.4); Hematocrit 42.5 % (37.0-47.0); Hemoglobin 13.9 g/dL (12.0-15.0); Immature Granulocyte Absolute 0.12 K/mm3 (0.00-0.031); Immature Granulocyte Percent A 1.1 % (0-0.5); Lymphocytes Absolute Auto 2.05 K/mm3 (0.9-3.2); Lymphocytes Percent Auto 19.4 % (18.3-44.2); Mean Corpuscular HGB Conc 32.7 g/dl (32-36); Mean Corpuscular Hemoglobin 26.9 pg (26-34); Mean Corpuscular Volume 82.4 fl (80-100); Mean Platelet Volume 10.9 fl (7.4-10.4); Neutrophils Absolute Auto 7.4 K/mm3 (1.3-6.7); Neutrophils Percent Auto 70.3 % (45.5-73.1); Platelet Count Result 288 k/mm3 (150-375); Red Blood Count 5.16 M/mm3 (4.2-5.4); Red Cell Distribution Width 12.7 % (11.5-14.5); White Blood Count 10.6 K/mm3 (4.5-10.0)
[2020-07-27 06:51] LABS: Alanine Aminotransferase 268 U/L (4-35); Albumin Level 3.6 g/dL (3.5-5.1); Alkaline Phosphatase 95 U/L (38-126); Anion Gap 7 mmol/L (8-16); Aspartate Amino Transferase 71 U/L (14-36); Bilirubin,Total 0.5 mg/dL (0.2-1.3); Blood Urea Nitrogen 25 mg/dL (7-17); Calcium 9.4 mg/dL (8.4-10.2); Carbon Dioxide 27 mmol/L (22-30); Chloride 99 mmol/L (98-107); Estimated CRCL calculation 66 ml/min; Estimated Glomerular Filt Rate > 60; Glucose 153 mg/dL (65-105); Magnesium 1.7 mg/dL (1.6-2.3); Potassium 4.2 mmol/L (3.4-5.0); Sodium 133 mmol/L (137-145)
[2020-07-27 08:00] VITALS: BP 100/56; BP 118/90; PULSE 60; RESP 16; TEMP 36.4; O2SAT 97
[2020-07-27] MEDS: SACCHAROMYCES BOULARDII 250 MG CAPSULE PO ×3 (08:55→16:40)
[2020-07-27] MEDS: PANTOPRAZOLE 40 MG TABLET PO (08:55)
[2020-07-27] MEDS: guaiFENesin 12 HR 600 MG TABCR PO (08:55)
[2020-07-27] MEDS: DEXAMETHASONE 2 MG TABLET 6 MG PO (08:55)
[2020-07-27 08:56] VITALS: PULSE 66
[2020-07-27] MEDS: METOPROLOL SUCCINATE EXT REL 50 MG TABCR PO (08:56)
[2020-07-27] MEDS: EUCERIN CREAM 120 GM JAR 1 APPLIC TOPICAL (08:56)
[2020-07-27] MEDS: LOSARTAN POTASSIUM 100 MG TABLET PO (08:56)
[2020-07-27] MEDS: hydroCHLOROthiazide 25 MG TABLET PO (08:56)
[2020-07-27] MEDS: DOXAZOSIN MESYLATE 2 MG TABLET PO (08:56)
[2020-07-27] MEDS: ENOXAPARIN 40 MG/0.4 ML SYRINGE SUB-Q (08:56)
[2020-07-27] MEDS: SPIRONOLACTONE 25 MG TABLET PO (08:56)
[2020-07-27] MEDS: ALBUTEROL SULFATE (*SP) AEROSOL 1 PUFF 2 PUFF INHALATION ×3 (09:20→16:49)
[2020-07-27 09:21] VITALS: O2SAT 92
[2020-07-27 12:00] VITALS: BP 107/60; PULSE 56; RESP 16; TEMP 36.1; O2SAT 94
--- NOTE | 2020-07-27 14:19 | PM.DS ---
DS: Admitting Diagnosis Admitting Diagnosis Admitting Diagnosis: hypoxia, covid infection DS: Discharge Diagnosis Discharge Diagnosis (1) Pneumonia due to COVID-19 virus: Code(s): U07.1 - COVID-19; J12.89 - Other viral pneumonia Status: Acute Assessment and Plan: Patient reports testing positive on 07/14 around when her symptoms first started. CXR suggestive of pneumonia; likely due to COVID. Now on RA. Home O2 eval shows no oxygen requirements. Symptomatically has improved. Started on remdesivir and decadron therapy in the ED Received Remdesivir x3 days; stopped due to elevated LFTs Received dexamethasone x 6 days Continue supportive care with ibuprofen, PRN albuterol, Mucinex, IS f/u with pcp (2) Acute respiratory failure with hypoxia: Code(s): J96.01 - Acute respiratory failure with hypoxia Status: Acute Assessment and Plan: Likely secondary from COVID pneumonia. Now on RA. No O2 requirements prior to discharge f/u with PCP Recommended pulse oximeter (3) GERD (gastroesophageal reflux disease): Code(s): K21.9 - Gastro-esophageal reflux disease without esophagitis Status: Acute Assessment and Plan: PPI therapy (4) Essential hypertension: Code(s): I10 - Essential (primary) hypertension Status: Acute Assessment and Plan: BP stable 110s sys this morning Continue home antihypertensives Monitor (5) Elevated LFTs: Code(s): R79.89 - Other specified abnormal findings of blood chemistry Status: Acute Assessment and Plan: Patient has had mildly elevated LFTs previous days, however, significantly increased on 07/25; trending down again today. Initially felt due to acute COVID infection, now felt that possibly Remdesivir adding to elevation. Bili is WNL. She is s/p cholecystectomy. She had RUQ US 07/26 which revealed hepatic steatosis and when questioned, she states she has known about this diagnosis and has seen a Liver specialist in the past; she did not provide this information on admission to the hospital hold remdesivir, refrain from Tylenol Continue with ibuprofen as needed for fever F/u with PCP and Liver specialist as outpatient (6) Hepatic steatosis: Code(s): K76.0 - Fatty (change of) liver, not elsewhere classified Status: Acute Assessment and Plan: Evident on RUQ US on 07/26. Patient states she has known about this diagnosis. Has seen a occupational therapy asst in the past See above a/p F/u with PCP/ Chief Minister DS: Summary Hospital Course Reason for hospitalization: COVID PNA and acute respiratory failure with hypoxia likely due to same Hospital Course: Date of arrival: 07/23/20 Date of discharge: 07/27/20 From H&P: Patient is a pleasant 64 year old female with medical history of HTN and GERD who presented to the ER on 07/22 with complaints of worsening SOB and cough for 2-3 days prior to arrival on 07/22. She tested positive for COVID on 07/16. Patient states her symptoms started roughly 07/14 with chills, shortness of breath, headaches, and non-bloody diarrhea. She got tested on that day and was positive on 07/16. She notes she was having mild symptoms up until 3-4 days ago where her SOB worsened, as well as her diarrhea. She notes that Benzonatate and Lomotil has not improved her symptoms. Her worsening symptoms got to a point where she decided to proceed to the ED for further evaluation where she was found to be hypoxic on RA and placed on supplemental O2. CXR was consistent with pneumonia. Given her recent diagnosis of COVID and findings suggestive of pneumonia, she was placed on remdesivir and decadron therapy and admitted under this setting. Today, patient states she feels overall better th
== END 2020-07-27 17:32 | disposition home or self-care (01) | DRG 177 ==
LOC: ANHED 17:51 → ANH3MEDSUR 18:59
PROVIDERS: Physician Assistant; Admitting Provider Family Medicine; Emergency Provider Emergency Medicine; PCP Emergency Medicine; Visit Provider Internal Medicine
DX: U07.1 COVID-19 (principal); J12.89 Other viral pneumonia; J96.01 Acute respiratory failure with hypoxia; K21.9 Gastro-esophageal reflux disease without esophagitis; I10 Essential (primary) hypertension; R79.89 Other specified abnormal findings of blood chemistry; K76.0 Fatty (change of) liver, not elsewhere classified; Z87.891 Personal history of nicotine dependence; Z90.49 Acquired absence of other specified parts of digestive tract
CPT/HCPCS: 36415; 71045; 76705; 80053; 82565; 82728; 83615; 83735; 84460; 85025; 86140; 93005; 94618; 94640; 96361; 96365; 97161; 99291; A9270; G0378; J1650; J7030; J8540

== ENCOUNTER 2020-09-05 16:51 | Emergency (ER) | payer MEDICARE, MEDICAID, SELFPAY ==
--- NOTE | ~2020-09-05 | XR_ITS ---
EXAMINATION: XR chest 1V portable DATE: 09/05/2020 18:17 INDICATION: COVID positive presenting with hypertension, headache and blurry vision. TECHNIQUE: frontal view of the chest was obtained. COMPARISON: Chest radiograph dated 07/22/2020 FINDINGS: Unchanged mild right apical pleural-parenchymal scarring. Remaining previously seen airspace opacitie s resolved. No pulmonary edema, pleural effusion or pneumothorax. The cardiomediastinal silhouette is normal. Thoracic dextro curvature with severe spondylosis. IMPRESSION: 1. No acute cardiopulmonary disease. Reviewed, dictated and finalized at location A. EMAN
--- NOTE | ~2020-09-05 | CT_ITS ---
EXAMINATION: CT brain wo con DATE: 09/05/2020 18:10 INDICATION: Headache TECHNIQUE: Computed tomography (CT) of the head was performed without intravenous contrast. Sagittal and coronal reconstructions were performed. The mA was adjusted according to patient size. Iterative reconstruction technique was employed. The dose-length product was 605.33 mGy-cm. COMPARISON: None FINDINGS: No acute intracranial hemorrhage, acute infarction or abnormal extra axial fluid collection. There is mild scattered white matter hypoattenuation consistent with chronic small vessel ischemic disease. V entricles are normal and symmetric. No mass/mass effect. The orbits, paranasal sinuses and mastoid ai r cells are normal. IMPRESSION: 1. No acute intracranial process. 2. Mild scattered white matter hypoattenuation consistent with chronic small vessel ischemic disease. Reviewed, dictated and finalized at location A. OLEUM PLANT OPERATOR IMPRESSION: 1. No acute intracranial process. 2. Mild scattered white matter hypoattenuation consistent with chronic small ve ssel ischemic disease.
[2020-09-05 16:54] VITALS: BP 152/89; PULSE 100; RESP 18; TEMP 36.3; O2SAT 98
--- NOTE | 2020-09-05 17:20 | ECG_ITS ---
Measurements Intervals [place] Rate: 78 P: 59 [place]: 165 QRS: 50 QRSD: 80 T: 35 QT: 361 QTc: 414 Interpretive Statements SINUS RHYTHM NORMAL ECG Electronically Signed On 09-05-2020 19:20:01 WASHER CUTTER by Matty Carter D.O.
--- NOTE | 2020-09-05 17:50 | ED.GENADULT ---
HPI - General Adult General Chief complaint: Headache Stated complaint: High Blood Pressure, Headache Time Seen by Provider: 09/05/20 17:19 Source: patient Mode of arrival: ambulatory Limitations: no limitations History of Present Illness HPI narrative: Patient 64 years old -[place] female presents with the chief complaint of palpitation, headache started this morning. Patient reports running out of blood pressure medication for 2 days, started back on it 5 days ago. Patient also reports intermittent whitish spot in the visual field for the last 3 days which comes and goes. Patient reports that her symptoms get worse on exertion. Patient is retired, lives alone, a lot of stress lately, does not smoke, does not drink or uses drugs. Currently still having headache, denying any palpitation or chest heaviness. Patient denies any family history of coronary artery disease. Patient quit smoking 30 years ago. Related Data Home Medications Medication Instructions Recorded Confirmed acetaminophen 500 mg PO Q6H PRN 07/22/20 07/22/20 benzonatate 100 mg PO Q8H PRN 07/22/20 07/22/20 diphenoxylate-atropine 1 tablet PO Q6H PRN 07/22/20 07/22/20 doxazosin 2 mg PO DAILY 07/22/20 07/22/20 hydrochlorothiazide 25 mg PO DAILY 07/22/20 07/22/20 losartan 100 mg PO DAILY 07/22/20 07/22/20 metoprolol succinate 50 mg PO DAILY 07/22/20 07/22/20 omeprazole 20 mg PO DAILY 07/22/20 07/22/20 spironolactone 25 mg PO DAILY 07/22/20 07/22/20 Allergies Allergy/AdvReac Type Severity Reaction Status Date / Time codeine Allergy Unknown Unknown Verified 07/22/20 20:07 propoxyphene Allergy Unknown Other Verified 07/22/20 20:07 Review of Systems Review of Systems: Narrative: CONSTITUTIONAL: Denies fever, chills, or sweats. EYES: Denies visual changes, redness, or discharge. ENT: Denies rhinorrhea, congestion, sore throat, or otalgia. CARDIOVASCULAR: Denies chest pain, palpitations, or edema. RESPIRATORY: Denies cough or dyspnea. GASTROINTESTINAL: Denies abdominal pain, nausea, vomiting, or diarrhea. GENITOURINARY: Denies dysuria or hematuria. SKIN: Denies rash or itching. MUSCULOSKELETAL: Denies back pain, joint pain, or myalgia. NEUROLOGIC: Denies headache, numbness, or weakness. PSYCHIATRIC: Denies anxiety or depression. [facility] Past Medical History Medical History Essential hypertension GERD (gastroesophageal reflux disease) Hepatic steatosis Surgical History Surgical History History of History of cholecystectomy Family History Family History Mother Diabetes mellitus Social History Social History Social History: Patient lives at home alone. She is no longer working. She wishes to list her son, Vinicius, as her surrogate MDM. She wishes to be a full code. Her PCP is Dr. Chavarria Smoking status: Former smoker Smoking end date: 08/23/89 Additional smoking assessment comments: Smoked 2ppd x 6 years. Quit 30 years ago Alcohol intake: never Substance use: never Gender identity (if verbalized by the patient): Female Spiritual care concerns: No Exam Narrative: Exam Narrative: General appearance: Well-developed, well-nourished Skin: Normal color Head: Normocephalic, nontraumatic Eyes: Clear conjunctiva ENT: Oropharynx normal, ears normal, nose normal Neck: Supple, nontender Chest and respiratory: Airway patent, no respiratory distress, no accessory muscle use Heart: Regular rate/rhythm Abdomen: Soft, nontender, no organomegaly, quiet bowel sounds Vascular: Normal peripheral pulses, normal capillary refill. Musculoskeletal: Normal range of motion, nontender back Neurologic: Alert and oriented ?3, BUILD MANAGER is normal as tested, no gross motor deficit
[2020-09-05 18:06] LABS: Basophils Absolute Auto 0.1 K/mm3 (0.0-0.1); Basophils Percent Auto 0.6 % (0.2-1.2); Eosinophils Absolute Auto 0.1 K/mm3 (0-0.3); Eosinophils Percent Auto 0.8 % (0-4.4); Hematocrit 37.4 % (37.0-47.0); Hemoglobin 12.1 g/dL (12.0-15.0); Immature Granulocyte Absolute 0.03 K/mm3 (0.00-0.031); Immature Granulocyte Percent A 0.3 % (0-0.5); Lymphocytes Absolute Auto 3.25 K/mm3 (0.9-3.2); Lymphocytes Percent Auto 34.4 % (18.3-44.2); Mean Corpuscular HGB Conc 32.4 g/dl (32-36); Mean Corpuscular Hemoglobin 26.8 pg (26-34); Mean Corpuscular Volume 82.9 fl (80-100); Mean Platelet Volume 10.2 fl (7.4-10.4); Monocytes Absolute Auto 0.9 K/mm3 (0.1-0.6); Neutrophils Absolute Auto 5.2 K/mm3 (1.3-6.7); Neutrophils Percent Auto 54.9 % (45.5-73.1); Platelet Count Result 291 k/mm3 (150-375); Red Blood Count 4.51 M/mm3 (4.2-5.4); Red Cell Distribution Width 13.3 % (11.5-14.5); White Blood Count 9.4 K/mm3 (4.5-10.0)
[2020-09-05 18:08] LABS: CRP 1.6 mg/dL (<1.0)
[2020-09-05 18:47] VITALS: BP 150/87; PULSE 78; RESP 16; O2SAT 98
[2020-09-05] MEDS: ACETAMINOPHEN 325 MG TABLET 650 MG (19:00)
[2020-09-05] MEDS: IBUPROFEN 600 MG TABLET (19:00)
[2020-09-05 19:13] VITALS: BP 160/75; PULSE 76; RESP 14; O2SAT 97
[2020-09-05 19:18] LABS: Alanine Aminotransferase 28 U/L (4-35); Albumin Level 4.2 g/dL (3.5-5.1); Alkaline Phosphatase 118 U/L (38-126); Anion Gap 2 mmol/L (8-16); Aspartate Amino Transferase 29 U/L (14-36); Bilirubin,Total 0.6 mg/dL (0.2-1.3); Blood Urea Nitrogen 15 mg/dL (7-17); Calcium 9.9 mg/dL (8.4-10.2); Carbon Dioxide 32 mmol/L (22-30); Chloride 103 mmol/L (98-107); Estimated CRCL calculation 59 ml/min; Estimated Glomerular Filt Rate > 60; Glucose 109 mg/dL (65-105); Sodium 137 mmol/L (137-145)
[2020-09-05 19:29] LABS: Troponin I < 0.012 ng/mL (0.000-0.034)
[2020-09-05 19:41] LABS: Erythrocyte Sedimentation Rate 51 mm/hr (0-20)
[2020-09-05 20:40] LABS: Add Urine Microscopic? YES; Appearance Urine Clear (Clear); Bacteria Urine 2+ /hpf; Bilirubin Urine Negative (Negative); Blood Urine Negative (Negative); Color Urine Yellow (Yellow); Glucose Urine UA Negative (Negative); Ketones Urine Negative (Negative); Leukocyte Esterase Ur Trace LEU/UL (Negative); Mucus Urine Rare /lpf; Nitrate Urine Positive (Negative); Protein Urine Negative (Negative); RBC Urine 0-2 /hpf (0-2); Specific Grav Ur 1.012 (1.001-1.035); Squamous Epithelial Cell Urine Rare /hpf (Few); Urobilinogen Urine Negative mg/dL (<2.0)
[2020-09-05 21:23] VITALS: BP 156/63; PULSE 75; RESP 16; O2SAT 97
[2020-09-05 22:33] VITALS: BP 122/73; PULSE 78; RESP 16; O2SAT 97
[2020-09-06 00:15] VITALS: BP 123/67; PULSE 78; RESP 16; TEMP 36.9; O2SAT 93
[2020-09-06] MEDS: NITROFURANTOIN MONOHYD MACROCR 100 MG CAP PO (00:15)
== END 2020-09-06 00:16 | disposition home or self-care (01) ==
PROVIDERS: Emergency Provider Emergency Medicine; PCP Emergency Medicine
DX: R00.2 Palpitations (principal); R51.9 Headache, unspecified; I10 Essential (primary) hypertension; K21.9 Gastro-esophageal reflux disease without esophagitis; Z87.891 Personal history of nicotine dependence
CPT/HCPCS: 36415; 70450; 71045; 80053; 81001; 84484; 85025; 85652; 86140; 87077; 87086; 87088; 87186; 93005; 99284; A9270

== ENCOUNTER 2020-10-03 21:02 | Emergency (ER) | payer MEDICARE, MEDICAID, SELFPAY ==
--- NOTE | ~2020-10-03 | XR_ITS ---
EXAMINATION: XR chest 2V DATE: 10/03/2020 22:17 INDICATION: Intermittent palpitations TECHNIQUE: PA and lateral views of the chest were obtained. COMPARISON: Chest radiograph dated 09/05/2020 and 01/31/2019 FINDINGS: Chronic pleural parenchymal scarring at the right apex. No new airspace opacities, pulmonary edema, p leural effusion or pneumothorax. The cardiomediastinal silhouette is normal. Cholecystectomy clips in the right upper quadrant. Thoracic dextrocurvature with severe spondylosis. IMPRESSION: 1. No acute cardiopulmonary disease. Reviewed, dictated and finalized at location A. IC HEALTH TECHNICIAN
--- NOTE | 2020-10-03 21:12 | ECG_ITS ---
Measurements Intervals [place] Rate: 61 P: 68 IN: 188 QRS: 58 QRSD: 80 T: 47 QT: 380 QTc: 384 Interpretive Statements SINUS RHYTHM NORMAL ECG Electronically Signed On 10-04-2020 6:54:01 STEM LEAD FORMER by Matty Carter D.O.
[2020-10-03 21:24] VITALS: BP 151/69; PULSE 68; RESP 17; TEMP 36.6; O2SAT 100
[2020-10-03 21:52] LABS: Basophils Absolute Auto 0.1 K/mm3 (0.0-0.1); Basophils Percent Auto 0.9 % (0.2-1.2); Eosinophils Absolute Auto 0.2 K/mm3 (0-0.3); Eosinophils Percent Auto 2.5 % (0-4.4); Hematocrit 38.4 % (37.0-47.0); Hemoglobin 12.2 g/dL (12.0-15.0); Immature Granulocyte Absolute 0.01 K/mm3 (0.00-0.031); Immature Granulocyte Percent A 0.1 % (0-0.5); Lymphocytes Absolute Auto 3.69 K/mm3 (0.9-3.2); Lymphocytes Percent Auto 47.6 % (18.3-44.2); Mean Corpuscular HGB Conc 31.8 g/dl (32-36); Mean Platelet Volume 10.3 fl (7.4-10.4); Monocytes Absolute Auto 0.7 K/mm3 (0.1-0.6); Monocytes Percent Auto 9.2 % (2.6-8.5); Neutrophils Absolute Auto 3.1 K/mm3 (1.3-6.7); Neutrophils Percent Auto 39.7 % (45.5-73.1); Platelet Count Result 267 k/mm3 (150-375); Red Blood Count 4.52 M/mm3 (4.2-5.4); Red Cell Distribution Width 13.6 % (11.5-14.5); White Blood Count 7.8 K/mm3 (4.5-10.0)
[2020-10-03 22:01] LABS: INR 0.9; Prothrombin Time 12.5 Seconds (11.1-14.7)
[2020-10-03 22:02] LABS: Partial Thromboplastin Time 32.5 SECONDS (22.3-36.8)
[2020-10-03 22:03] LABS: Anion Gap 6 mmol/L (8-16); Blood Urea Nitrogen 15 mg/dL (7-17); Calcium 9.8 mg/dL (8.4-10.2); Carbon Dioxide 30 mmol/L (22-30); Chloride 104 mmol/L (98-107); Estimated CRCL calculation 57 ml/min; Estimated Glomerular Filt Rate > 60; Glucose 105 mg/dL (65-105); Potassium 4.5 mmol/L (3.4-5.0); Sodium 140 mmol/L (137-145)
[2020-10-03 22:15] LABS: Troponin I < 0.012 ng/mL (0.000-0.034)
--- NOTE | 2020-10-03 23:54 | ED.ARRPALP ---
HPI - Arrhythmia/Palpitations General Chief Complaint: Arrhythmia/Palpitations Stated Complaint: palpitations Time Seen by Provider: 10/03/20 23:44 History of Present Illness HPI narrative: 64 yo female w/ h/o htn and GERD presents to the ED from home for palpitations. For the past week she has intermittently felt her heart racing. She also reports that when she eats she can hear her blood pressure going up. Sometimes this gives her a headac he. She says that she may have pressure in her ears bilaterally. No dizziness, weakness, confusion, fever. Related Data Home Medications Medication Instructions Recorded Confirmed acetaminophen 500 mg PO Q6H PRN 07/22/20 07/22/20 benzonatate 100 mg PO Q8H PRN 07/22/20 07/22/20 diphenoxylate-atropine 1 tablet PO Q6H PRN 07/22/20 07/22/20 doxazosin 2 mg PO DAILY 07/22/20 07/22/20 hydrochlorothiazide 25 mg PO DAILY 07/22/20 07/22/20 losartan 100 mg PO DAILY 07/22/20 07/22/20 metoprolol succinate 50 mg PO DAILY 07/22/20 07/22/20 omeprazole 20 mg PO DAILY 07/22/20 07/22/20 spironolactone 25 mg PO DAILY 07/22/20 07/22/20 Allergies Allergy/AdvReac Type Severity Reaction Status Date / Time codeine Allergy Unknown Unknown Verified 07/22/20 20:07 propoxyphene Allergy Unknown Other Verified 07/22/20 20:07 Review of Systems Review of Systems: All systems reviewed & are unremarkable except as noted in HPI and below Constitutional: Constitutional: Denies chills, Denies fatigue, Denies fever(s) and Denies weakness Eyes: Eyes: Denies no additional eye complaints ENT: Denies dizziness Cardiovascular: Cardiovascular: Denies chest pain and Reports rapid heart rate Respiratory: Respiratory: Denies dyspnea Gastrointestinal: Gastrointestinal: Denies diarrhea, Denies nausea and Denies vomiting Genitourinary: Genitourinary: Denies hematuria and Denies dysuria Musculoskeletal: Musculoskeletal: Denies back pain Neurologic: Denies dizziness, Reports headache(s), Denies numbness and Denies weakness [facility] Past Medical History Medical History Essential hypertension GERD (gastroesophageal reflux disease) Hepatic steatosis Surgical History Surgical History History of History of cholecystectomy Family History Family History Mother Diabetes mellitus Social History Social History Social History: Patient lives at home alone. She is no longer working. She wishes to list her son, Vinicius, as her surrogate MDM. She wishes to be a full code. Her PCP is Dr. Chavarria Smoking status: Former smoker Smoking end date: 08/23/89 Additional smoking assessment comments: Smoked 2ppd x 6 years. Quit 30 years ago Alcohol intake: never Substance use: never Gender identity (if verbalized by the patient): Female Spiritual care concerns: No Exam Const: General: healthy appearing, no acute distress and alert Orientation/consciousness: patient oriented x3 HENMT: Head: normal to inspection Ears: TM's normal bilaterally and Abnormal EAC present excessive cerumen bilateral Eyes: Conjunctivae: conjunctivae normal Pupils: Equal, round and reactive pupils present EOM: EOMs intact bilaterally Neck: Neck: normal visual inspection and no lymphadenopathy Chest: Chest palpation & inspection: no tenderness Resp: Effort & Inspection: normal respiratory effort Auscultation: clear to auscultation bilaterally, no rales, no rhonchi and no wheezes Cardio: Jugular venous distension: no JVD Rate: regular rate Rhythm: regular rhythm Heart sounds: no murmurs GI: Inspection: non-distended GI Palp: Yes Soft to palpation and No Tenderness to palpation present (GI) Skin: General skin exam: normal color Neuro: General: patient oriented x3, moves all extremities, no focal motor
[2020-10-04 00:06] VITALS: BP 129/62; PULSE 61; RESP 18; O2SAT 100
[2020-10-04 00:08] VITALS: BP 129/62; BP 145/75; PULSE 61; PULSE 63
[2020-10-04 00:10] VITALS: BP 138/90; PULSE 66
[2020-10-04 01:00] VITALS: BP 133/59; PULSE 69; RESP 18; O2SAT 98
== END 2020-10-04 01:03 | disposition home or self-care (01) ==
PROVIDERS: Family Medicine; Emergency Provider Emergency Medicine; PCP Emergency Medicine
DX: R00.2 Palpitations (principal); I10 Essential (primary) hypertension; K21.9 Gastro-esophageal reflux disease without esophagitis; Z87.891 Personal history of nicotine dependence
CPT/HCPCS: 36415; 71046; 80048; 84484; 85025; 85610; 85730; 93005; 99284

== ENCOUNTER 2020-11-07 12:42 | Outpatient (CLI) | payer MEDICARE, MEDICAID, SELFPAY ==
--- NOTE | 2020-11-07 | ECHO_ITS ---
Patient Info Name: Chetna George Age: 65 years : 1955 Gender: Female Ht: 62 in Wt: 235 lbs BSA: 2.22 m2 HR: 78 bpm BP: 128 / 79 mmHg Heart Rhythm: Sinus Rhythm Technical Quality: Good Exam Date: 11/07/2020 1:27 PM Exam Location: [facility] Patient Status: Outpatient Admit Date: 11/07/2020 Staff Ordering Physician: Jose Eduardo Chavarria MD Software Configuration Analyst: Reina Hernandez RDCS Attending Provider: Jose Eduardo Chavarria MD Referring Physician: Deon PARDO; Exam Type: CA echo doppler color flow Study Info Indications - PALPITATIONS Complete two-dimensional, color flow and Doppler transthoracic echocardiogram is performed. Summary 1. Complete two-dimensional, color flow and Doppler transthoracic echocardiogram is performed. 2. Normal echocardiogram. Left Ventricle Left ventricular chamber dimension is normal. Left ventricular systolic function is normal, estimated at 60-65%. The left ventricular diastolic function is normal. Right Ventricle Right ventricular chamber dimension is normal. Left Atria Left atrial chamber dimension is normal. Right Atria Right atrial chamber dimension is normal. Aortic Valve The aortic valve is normal. Pulmonic Valve The pulmonic valve is normal. Mitral Valve The mitral valve has normal leaflets. Tricuspid Valve The tricuspid valve leaflets are normal. Pericardium/Pleural The pericardium appears normal. Aorta The aortic root size at the sinus of Valsalva is normal. Left Ventricular Outflow Tract Name Value Normal LVOT 2D LVOT Diameter 2.0 cm LVOT Doppler LVOT Peak Gradient 5 mmHg LVOT Mean Gradient 3 mmHg LVOT VTI 27 cm LVOT VTI/AV VTI Ratio 0.8 LVOT Stroke Volume 83 ml LVOT CO 14.9 l/min LVOT CI 6.7 l/min/m2 Pulmonic Valve Name Value Normal PV Doppler PV Peak Gradient 5 mmHg Mitral Valve Name Value Normal MV Doppler MV Decel [place] 376 cm/s2 MV PHT 75 ms MV Area (PHT) 2.9 cm2 4.0-5.0 MV Diastolic Function MV E Peak Velocity 97 cm/s MV A Peak Velocity 113 cm/s MV E/A 0.9 MV Decel Time 260 ms Tricuspid Valve -
--- NOTE | 2020-11-12 12:25 | WPDHOLTEREM ---
Holter/Event Monitor Holter/Event Monitor Date of procedure: 11/07/20 Procedure Type: 48 hour holter monitor Indications: Palpitations Conclusion: 1. 48 hour holter monitor on 11/07/20. 2. Underlying rhythm is sinus rhythm. HR range 48-120 bpm; average HR 69. 3. There are 25 premature supraventricular complexes. No supraventricular tachycardia. 4. There is one premature ventricular complex. No ventricular tachycardia. 5. No sinoatrial or atrioventricular blocks. No significant pauses greater than 2 seconds. 6. Patient reports symptoms of lots of gas , heavy beats which demonstrate sinus rhythm, HR range 61-103 bpm.
== END 2020-11-07 12:43 | disposition home or self-care (01) ==
PROVIDERS: PCP Emergency Medicine; Visit Provider Emergency Medicine
DX: R00.2 Palpitations (principal)
CPT/HCPCS: 93225; 93226; 93306

== ENCOUNTER 2021-01-27 07:57 | Outpatient (CLI) | payer MEDICARE, MEDICAID, SELFPAY ==
--- NOTE | ~2021-01-27 | MM_ITS ---
EXAMINATION: MM screening manohar BI w korina HISTORY: Screening mammogram TECHNIQUE: Craniocaudal and mediolateral oblique 3-D tomosynthesis images were obtained and synthetic 2-D images were generated. CAD analysis was submitted and interpreted. COMPARISON: 05/02/2019 bilateral digital screening mammogram BREAST PARENCHYMAL COMPOSITION: The breasts are almost entirely fatty. FINDINGS: There is no evidence of suspicious mass, calcification, or architectural distortion to sugg est malignancy in either breast. There has been no suspicious interval change. IMPRESSION: 1. No mammographic evidence of malignancy. 2. Recommend routine screening mammography in one year. BI-RADS Category 1: Negative Reviewed, dictated and finalized at location A.
== END 2021-01-27 07:58 | disposition home or self-care (01) ==
PROVIDERS: PCP Emergency Medicine; Visit Provider Emergency Medicine
DX: Z12.31 Encounter for screening mammogram for malignant neoplasm of breast (principal)
CPT/HCPCS: 77063; 77067

== ENCOUNTER 2021-03-20 18:47 | Emergency (ER) | payer MEDICARE, MEDICAID, SELFPAY ==
--- NOTE | ~2021-03-20 | XR_ITS ---
EXAMINATION: XR chest 2V DATE: 03/20/2021 19:29 INDICATION: Fatigue and weakness, history of hypertension TECHNIQUE: PA and lateral views of the chest are obtained. COMPARISON: 10/03/2020 FINDINGS: The lungs are free of acute opacities. There is no pleural effusion or pneumothorax. The ca rdiomediastinal silhouette is normal. There is moderate thoracic spondylosis. IMPRESSION: 1. No acute cardiopulmonary abnormality. Reviewed, dictated and finalized at location A.
[2021-03-20 18:57] VITALS: BP 136/94; PULSE 81; RESP 17; TEMP 36.3; O2SAT 100
--- NOTE | 2021-03-20 18:59 | ECG_ITS ---
Measurements Intervals [place] Rate: 67 P: -9 [place]: 166 QRS: 33 QRSD: 82 T: 30 QT: 371 QTc: 393 Interpretive Statements SINUS RHYTHM EARLY PRECORDIAL R/S TRANSITION BASELINE ARTIFACT- II, III, AVF BORDERLINE ECG Electronically Signed On 03-21-2021 6:46:25 CDT by Matty Carter D.O.
[2021-03-20 19:18] LABS: Basophils Absolute Auto 0.1 K/mm3 (0.0-0.1); Basophils Percent Auto 0.9 % (0.2-1.2); Eosinophils Absolute Auto 0.2 K/mm3 (0-0.3); Eosinophils Percent Auto 2.2 % (0-4.4); Hematocrit 39.7 % (37.0-47.0); Hemoglobin 12.7 g/dL (12.0-15.0); Immature Granulocyte Absolute 0.02 K/mm3 (0.00-0.031); Immature Granulocyte Percent A 0.2 % (0-0.5); Lymphocytes Absolute Auto 3.92 K/mm3 (0.9-3.2); Mean Corpuscular Hemoglobin 26.8 pg (26-34); Mean Corpuscular Volume 83.8 fl (80-100); Mean Platelet Volume 10.6 fl (7.4-10.4); Monocytes Absolute Auto 0.7 K/mm3 (0.1-0.6); Monocytes Percent Auto 8.4 % (2.6-8.5); Neutrophils Absolute Auto 3.3 K/mm3 (1.3-6.7); Neutrophils Percent Auto 40.3 % (45.5-73.1); Platelet Count Result 267 k/mm3 (150-375); Red Blood Count 4.74 M/mm3 (4.2-5.4); Red Cell Distribution Width 13.2 % (11.5-14.5); White Blood Count 8.2 K/mm3 (4.5-10.0)
[2021-03-20 19:20] LABS: Add Urine Microscopic? NO; Appearance Urine Clear (Clear); Bilirubin Urine Negative (Negative); Blood Urine Negative (Negative); Color Urine Straw (Yellow); Glucose Urine UA Negative (Negative); Ketones Urine Negative (Negative); Leukocyte Esterase Ur Negative LEU/UL (Negative); Nitrate Urine Negative (Negative); Protein Urine Negative (Negative); Urobilinogen Urine Negative mg/dL (<2.0)
[2021-03-20 19:42] LABS: Alanine Aminotransferase 33 U/L (4-35); Albumin Level 4.5 g/dL (3.5-5.1); Alkaline Phosphatase 89 U/L (38-126); Anion Gap 11 mmol/L (8-16); Aspartate Amino Transferase 28 U/L (14-36); Bilirubin,Total 0.4 mg/dL (0.2-1.3); Blood Urea Nitrogen 21 mg/dL (7-17); Carbon Dioxide 25 mmol/L (22-30); Chloride 101 mmol/L (98-107); Estimated CRCL calculation 54 ml/min; Estimated Glomerular Filt Rate > 60; Glucose 84 mg/dL (65-110); Potassium 4.2 mmol/L (3.4-5.0); Sodium 137 mmol/L (137-145)
--- NOTE | 2021-03-20 21:35 | ED.GENADULT ---
HPI - General Adult General Chief complaint: Unspecified Stated complaint: I think I'm dehydrated Time Seen by Provider: 03/20/21 21:06 Source: patient Mode of arrival: ambulatory Limitations: no limitations History of Present Illness HPI narrative: Patient is a 65 year old female who presents complaining of dehydration. She reports she recently started taking Metformin and has been having diarrhea daily. She also reports recently being out frequently in the heat and reports dehydration. She denies chest pain or shortness of breath. She does report feeling weak and is having decreased energy. She denies fever, vomiting and all other complaints at this time. Patient ambulatory without difficulty to ED room. Related Data Home Medications Medication Instructions Recorded Confirmed acetaminophen 500 mg PO Q6H PRN 07/22/20 07/22/20 benzonatate 100 mg PO Q8H PRN 07/22/20 07/22/20 diphenoxylate-atropine 1 tablet PO Q6H PRN 07/22/20 07/22/20 doxazosin 2 mg PO DAILY 07/22/20 07/22/20 hydrochlorothiazide 25 mg PO DAILY 07/22/20 07/22/20 losartan 100 mg PO DAILY 07/22/20 07/22/20 metoprolol succinate 50 mg PO DAILY 07/22/20 07/22/20 omeprazole 20 mg PO DAILY 07/22/20 07/22/20 spironolactone 25 mg PO DAILY 07/22/20 07/22/20 metformin 500 mg tablet 500 mg PO BID 02/17/21 Allergies Allergy/AdvReac Type Severity Reaction Status Date / Time codeine Allergy Unknown Unknown Verified 03/20/21 21:29 propoxyphene Allergy Unknown Other Verified 03/20/21 21:29 Review of Systems Review of Systems: CONSTITUTIONAL: Denies fever, chills, or sweats. EYES: Denies visual changes, redness, or discharge. ENT: Denies rhinorrhea, congestion, sore throat, or otalgia. CARDIOVASCULAR: Denies chest pain, palpitations, or edema. RESPIRATORY: Denies cough or dyspnea. GASTROINTESTINAL: Denies abdominal pain, nausea, vomiting, reports diarrhea GENITOURINARY: Denies dysuria or hematuria. SKIN: Denies rash or itching. MUSCULOSKELETAL: Denies back pain, joint pain, or myalgia. NEUROLOGIC: Denies headache, numbness, dizziness, reports generalized weakness PSYCHIATRIC: Denies anxiety or depression. [facility] Past Medical History Medical History Essential hypertension GERD (gastroesophageal reflux disease) Hepatic steatosis Surgical History Surgical History History of History of cholecystectomy Family History Family History Mother Diabetes mellitus Hypertension Social History Social History Social History: Patient lives at home alone. She is no longer working. She wishes to list her son, Vinicius, as her surrogate MDM. She wishes to be a full code. Her PCP is Dr. Chavarria Smoking status: Former smoker Smoking end date: 08/23/89 Additional smoking assessment comments: Smoked 2ppd x 6 years. Quit 30 years ago Alcohol intake: never Substance use: never Gender identity (if verbalized by the patient): Female Spiritual care concerns: No Exam Narrative: GENERAL: Well-appearing, well-nourished, and in no acute distress. HEAD: Normocephalic, atraumatic. EYES: EOMI. No redness or drainage. Conjunctiva are normal. ENT: Mucous membranes pink and moist. CHEST: No respiratory distress. Clear to auscultation. HEART: Regular rate and rhythm. No murmur appreciated. Normal peripheral pulses. GI: Soft, nontender without rebound, or guarding. No distention. Bowel sounds normal in all quadrants. MUSCULOSKELETAL: No bony tenderness. EXTREMITIES: Normal range of motion. No edema. SKIN: Warm, dry, no rash. NEURO: No focal deficits. Alert and oriented x3. Gait steady. PSYCH: Normal affect. No signs of depression or anxiety. Course Course Emergency Course: Patient reports that she feels much better at this time and that sh
[2021-03-20] MEDS: SODIUM CHLORIDE 0.9% IV 1,000 ML 999 ML IV CONT (21:39)
[2021-03-20 22:44] VITALS: BP 128/84; PULSE 78; RESP 20; O2SAT 98
== END 2021-03-20 22:40 | disposition home or self-care (01) ==
PROVIDERS: Emergency Medicine; Emergency Provider Nurse Practitioner; PCP Emergency Medicine
DX: E86.0 Dehydration (principal); I10 Essential (primary) hypertension; K21.9 Gastro-esophageal reflux disease without esophagitis; Z79.84 Long term (current) use of oral hypoglycemic drugs; Z87.891 Personal history of nicotine dependence; R94.31 Abnormal electrocardiogram [ECG] [EKG]
CPT/HCPCS: 36415; 71046; 80053; 81003; 85025; 93005; 96360; 99283; J7030

== ENCOUNTER 2021-07-03 13:49 | Emergency (ER) | payer MEDICARE, MEDICAID, SELFPAY ==
--- NOTE | ~2021-07-03 | CT_ITS ---
EXAMINATION: CT abdomen pelvis wo con EXAM DATE: 07/03/2021 16:14 INDICATION: Left flank pain. TECHNIQUE: Spiral CT of the abdomen and pelvis was performed without contrast. Axial, coronal and sag ittal images were reviewed. The dose-length product (DLP) for this examination was 474.28 mGy-cm. T he exposure was tailored according to patient size (auto mA exposure control), and iterative reconstr uction (ASIR) was used as additional dose reduction technique. There is no prior study for compariso n. FINDINGS: There is no nephrolithiasis or hydronephrosis. The uterus is unremarkable. The bladder is unremarkable. The liver, spleen, adrenal glands and pancreas are unremarkable. There are cholecy stectomy clips. There is no retroperitoneal or pelvic lymphadenopathy. There is mild scattered art eriosclerotic disease. The appendix is normal. The stomach and small bowel are unremarkable. There is expected amount of c olonic stool. No free intraperitoneal gas. The heart is normal in size. There are no pericardial or pleural effusions. Small pleural plaque along the left hemidiaphragm. Chronic bilateral L5 spon dylolysis. Moderate to severe disc disease L3-4 and L4-5. IMPRESSION: 1. No nephrolithiasis, hydronephrosis or acute intra-abdominal findings. Reviewed, dictated and finalized at location [facility]. ETCHER
[2021-07-03 14:07] VITALS: BP 134/86; PULSE 89; RESP 18; O2SAT 100
[2021-07-03 16:18] LABS: RBC Urine 0-2 /hpf (0-2); Squamous Epithelial Cell Urine Rare /hpf (Few); WBC Urine 0-3 /hpf
[2021-07-03 16:26] LABS: Add Urine Microscopic? NO; Appearance Urine Clear (Clear); Bilirubin Urine Negative (Negative); Blood Urine Negative (Negative); Color Urine Straw (Yellow); Glucose Urine UA Negative (Negative); Ketones Urine Negative (Negative); Leukocyte Esterase Ur Negative LEU/UL (Negative); Nitrate Urine Negative (Negative); Protein Urine Negative (Negative)
[2021-07-03 16:27] LABS: Urobilinogen Urine Negative mg/dL (<2.0)
[2021-07-03] MEDS: IBUPROFEN 600 MG TABLET PO (16:34)
[2021-07-03 17:00] VITALS: BP 149/80; PULSE 70; RESP 20; O2SAT 100
--- NOTE | 2021-07-03 18:00 | ED.GENADULT ---
HPI - General Adult General Chief complaint: Back Pain/Injury Stated complaint: back pain Time Seen by Provider: 07/03/21 15:10 Source: patient Mode of arrival: ambulatory Limitations: no limitations History of Present Illness HPI narrative: Patient is a 65-year-old female with chief complaint of low left-sided back pain that began after drinking 3 sodas 3 days ago. Patient reports that she noticed that her urine was slightly darker in so she drank a lot of water and cranberry juice. Patient reports that she wonders if she has a UTI. She denies any pain with urination, fever, chills, nausea, vomiting. Patient denies history of kidney stones. Patient denies any other symptoms or concerns. Patient reports that this is the 1 year anniversary of her sister's that she is sad today, but doing okay. She wanted to come in to be checked out due to her symptoms. She denies recollection of an mechanism of injury. She denies heavy lifting or falls. Related Data Home Medications Medication Instructions Recorded Confirmed acetaminophen 500 mg PO Q6H PRN 07/22/20 07/22/20 benzonatate 100 mg PO Q8H PRN 07/22/20 07/22/20 diphenoxylate-atropine 1 tablet PO Q6H PRN 07/22/20 07/22/20 doxazosin 2 mg PO DAILY 07/22/20 07/22/20 hydrochlorothiazide 25 mg PO DAILY 07/22/20 07/22/20 losartan 100 mg PO DAILY 07/22/20 07/22/20 metoprolol succinate 50 mg PO DAILY 07/22/20 07/22/20 omeprazole 20 mg PO DAILY 07/22/20 07/22/20 spironolactone 25 mg PO DAILY 07/22/20 07/22/20 metformin 500 mg tablet 500 mg PO BID 02/17/21 Allergies Allergy/AdvReac Type Severity Reaction Status Date / Time codeine Allergy Unknown Unknown Verified 07/03/21 15:40 propoxyphene Allergy Unknown Other Verified 07/03/21 15:40 Review of Systems Review of Systems: CONSTITUTIONAL: Denies fever, chills, or sweats. EYES: Denies visual changes, redness, or discharge. ENT: Denies rhinorrhea, congestion, sore throat, or otalgia. CARDIOVASCULAR: Denies chest pain, palpitations, or edema. RESPIRATORY: Denies cough or dyspnea. GASTROINTESTINAL: Denies abdominal pain, nausea, vomiting, or diarrhea. GENITOURINARY: Denies dysuria or hematuria. SKIN: Denies rash or itching. MUSCULOSKELETAL: Reports left-sided back pain, denies joint pain, or myalgia. NEUROLOGIC: Denies headache, numbness, dizziness, or weakness. PSYCHIATRIC: Denies anxiety or depression. [facility] Past Medical History Medical History Essential hypertension GERD (gastroesophageal reflux disease) Hepatic steatosis Surgical History Surgical History History of History of cholecystectomy Family History Family History Mother Diabetes mellitus Hypertension Social History Social History Social History: Patient lives at home alone. She is no longer working. She wishes to list her son, Vinicius, as her surrogate MDM. She wishes to be a full code. Her PCP is Dr. Chavarria Smoking status: Former smoker Smoking end date: 08/23/89 Additional smoking assessment comments: Smoked 2ppd x 6 years. Quit 30 years ago Alcohol intake: never Substance use: never Gender identity (if verbalized by the patient): Female Spiritual care concerns: No Exam Narrative: GENERAL: Well-appearing, well-nourished, and in no acute distress. HEAD: Normocephalic, atraumatic. EYES: PERRLA and EOMI. NECK: Supple. No adenopathy or masses. CHEST: Clear to auscultation. No respiratory distress. No wheezes rales or rhonchi HEART: Regular rate and rhythm. No murmur heard. Normal peripheral pulses. ABDOMEN: Soft, nontender, nondistended, normal active bowel sounds. BACK: ROM intact. no vertebral point tenderness. Reports discomfort to left low back. EXTREMITIES: Normal range of motion. No edema. SKIN: Warm,
[2021-07-03 18:29] VITALS: BP 124/88; PULSE 68; RESP 20; O2SAT 100
== END 2021-07-03 18:35 | disposition home or self-care (01) ==
PROVIDERS: Physician Assistant; Emergency Provider Emergency Medicine; PCP Emergency Medicine
DX: M54.50 Low back pain, unspecified (principal); I10 Essential (primary) hypertension; Z87.891 Personal history of nicotine dependence
CPT/HCPCS: 74176; 81003; 99284; A9270

== ENCOUNTER 2023-05-14 13:10 | Emergency (ER) | payer MEDICARE, MEDICAID, SELFPAY ==
[2023-05-14] VITALS (31 sets, daily range): BP systolic 101–156; BP diastolic 52–135; PULSE 68–93; RESP 14–31; TEMP 36.6–36.7; O2SAT 97–100
--- NOTE | ~2023-05-14 | CT_ITS ---
EXAMINATION: CT abdomen pelvis w con DATE: 05/14/2023 20:51 INDICATION: Indigestion, left lower quadrant abdominal pain, diarrhea. Excessive gas. TECHNIQUE: Computed tomography (CT) of the abdomen and pelvis was performed with 100 CC Omnipaque 350 intravenous contrast. Automated exposure control and iterative reconstruction technique were employe d. Exam dose: 1108.37 mGy-cm total exam DLP. COMPARISON: 07/03/2021 CT abdomen pelvis FINDINGS: The lung bases are clear. Cardiomegaly. No pericardial or pleural effusion. Small sliding hiatal hernia. Status post cholecystectomy. This likely accounts for mild prominence of the common bile duct. No int rahepatic bile duct dilatation. No pancreatic duct dilatation. No hepatic, pancreatic or splenic, and adrenal space-occupying mass lesion. 5 mm upper pole left renal cyst. The kidneys are otherwise unremarkable. No urinary tract calculus or hydroureteronephrosis. The urinary bladder, uterus and adnexal areas are unremarkable. Normal caliber of the abdominal aorta. No intraperitoneal or retroperitoneal or pelvic mass lesion or adenopathy or ascites. Diverticulosis of the colon; no CT evidence of diverticulitis. Normal appendix. No bowel obstruction, bowel wall thickening, pneumatosis or intraperitoneal free air. Bilateral L5 pars interarticularis defects with very slight if any grade 1 anterolisthesis at L5-S1. Severe degenerative disc disease at L3-4, L4-5 and L5-S1, moderately severe degenerative disease at L 2-3. Diffuse idiopathic skeletal hyperostosis of the thoracic spine. Bilateral hip osteoarthritis. No suspicious osteolytic or osteoblastic lesions are noted. IMPRESSION: Normal appendix Diverticulosis of the colon; no CT evidence of diverticulitis. Small sliding hiatal hernia. Status post cholecystectomy 5 mm left renal cyst Bilateral L5 pars intra-articular is defects Diffuse idiopathic skeletal hyperostosis of the thoracic spine Multilevel degenerative disc disease of the lumbar and lumbosacral spine Bilateral hip osteoarthritis Reviewed, dictated and finalized at [facility]. Reviewed, dictated and finalized at location [facility].
--- NOTE | 2023-05-14 18:27 | ED.GENADULT ---
HPI - General Adult General Chief complaint: Abdominal Pain Stated complaint: Gas for three days Time Seen by Provider: 05/14/23 18:25 Source: patient Mode of arrival: ambulatory Limitations: no limitations History of Present Illness HPI narrative: Patient is a 67 y/o female, with PMH of cholecystectomy and GERD, who presents to the ED with c/o indigestion. Patient reports her stomach has been upset for the last 3 days. She states she has not been eating well and reports having indigestion, increased flatulence, diarrhea. She denies significant pain, but states she feels the indigestion mostly in her left mid and upper abdomen, radiating around her back. She takes omeprazole daily, but has not tried anything further for her symptoms. Denies significant nausea, vomiting, rectal bleeding, melena, fevers, chest pain, shortness of breath, urinary complaints. Related Data Home Medications Medication Instructions Recorded Confirmed acetaminophen 500 mg PO Q6H PRN Fever Or Pain 07/22/20 07/22/20 benzonatate 100 mg PO Q8H PRN Cough 07/22/20 07/22/20 diphenoxylate-atropine 2.5 1 tablet PO Q6H PRN Diarrhea 07/22/20 07/22/20 mg-0.025 mg tablet doxazosin 2 mg tablet 2 mg PO DAILY 07/22/20 07/22/20 hydrochlorothiazide 25 mg tablet 25 mg PO DAILY 07/22/20 07/22/20 losartan 100 mg tablet 100 mg PO DAILY 07/22/20 07/22/20 metoprolol succinate 50 mg 50 mg PO DAILY 07/22/20 07/22/20 tablet,extended release 24 hr omeprazole 20 mg capsule,delayed 20 mg PO DAILY 07/22/20 07/22/20 release spironolactone 25 mg tablet 25 mg PO DAILY 07/22/20 07/22/20 metformin 500 mg tablet 500 mg PO BID 02/17/21 Allergies Allergy/AdvReac Type Severity Reaction Status Date / Time codeine Allergy Unknown Unknown Verified 05/14/23 13:22 propoxyphene Allergy Unknown Other Verified 05/14/23 13:22 Review of Systems Review of Systems: CONSTITUTIONAL: Denies fever, chills, or sweats. CARDIOVASCULAR: Denies chest pain. RESPIRATORY: Denies dyspnea. GASTROINTESTINAL: See HPI. GENITOURINARY: Denies dysuria or hematuria. SKIN: Denies rash or itching. MUSCULOSKELETAL: See HPI. NEUROLOGIC: Denies headache, numbness, or weakness. All systems reviewed & are unremarkable except as noted in HPI and below PMFSH Past Medical History Medical History Essential hypertension GERD (gastroesophageal reflux disease) Hepatic steatosis Surgical History Surgical History History of History of cholecystectomy Family History Family History Mother Diabetes mellitus Hypertension Social History Social History Social History: Patient lives at home alone. She is no longer working. She wishes to list her son, Vinicius, as her surrogate MDM. She wishes to be a full code. Her PCP is Dr. Chavarria Smoking status: Former smoker Smoking end date: 08/23/89 Additional smoking assessment comments: Smoked 2ppd x 6 years. Quit 30 years ago Alcohol intake: never Substance use: never Gender identity (if verbalized by the patient): Female Spiritual care concerns: No Exam Narrative: GENERAL: Well appearing, morbidly obese with BMI of 40.3, non-toxic, in no acute distress. HEAD: Normocephalic, atraumatic. NECK: Supple. No adenopathy, no masses. RESPIRATORY: Airway patent, respirations nonlabored. Clear to auscultation bilaterally, no rales, rhonchi, wheezing. CARDIOVASCULAR: Regular rate and rhythm without murmurs, rubs, or gallops. Radial pulses 2+ and equal bilaterally. ABDOMINAL: Soft, mild tenderness in left lower quadrant, left mid abdomen, nondistended, no hepatosplenomegaly. Normoactive BS. MUSCULOSKELETAL: Moves all extremities. Strength/ROM intact without gross deformities. Mild tenderness in left lumbar region. S
--- NOTE | 2023-05-14 18:36 | ECG_ITS ---
Measurements Intervals [place] Rate: 72 P: 65 [place]: 165 QRS: 40 QRSD: 72 T: 36 QT: 350 QTc: 385 Interpretive Statements SINUS RHYTHM BASELINE ARTIFACT- I, II, AVR NORMAL ECG COMPARED TO ECG 03/20/2021 19:20:30 NO SIGNIFICANT CHANGES Electronically Signed On 05-14-2023 20:24:59 CDT by Matty Carter D.O.
[2023-05-14 19:01] LABS: Basophils Absolute Auto 0.1 K/mm3 (0.0-0.1); Basophils Percent Auto 0.5 % (0.2-1.2); Eosinophils Absolute Auto 0.1 K/mm3 (0-0.3); Eosinophils Percent Auto 0.5 % (0-4.4); Hematocrit 45.1 % (37.0-47.0); Hemoglobin 14.5 g/dL (12.0-15.0); Immature Granulocyte Absolute 0.02 K/mm3 (0.00-0.031); Immature Granulocyte Percent A 0.2 % (0-0.5); Lymphocytes Absolute Auto 4.17 K/mm3 (0.9-3.2); Lymphocytes Percent Auto 40.1 % (18.3-44.2); Mean Corpuscular HGB Conc 32.2 g/dl (32-36); Mean Corpuscular Hemoglobin 28.2 pg (26-34); Mean Corpuscular Volume 87.7 fl (80-100); Mean Platelet Volume 9.6 fl (7.4-10.4); Monocytes Absolute Auto 0.8 K/mm3 (0.1-0.6); Neutrophils Absolute Auto 5.3 K/mm3 (1.3-6.7); Neutrophils Percent Auto 50.7 % (45.5-73.1); Platelet Count Result 227 k/mm3 (150-375); Red Blood Count 5.14 M/mm3 (4.2-5.4); Red Cell Distribution Width 13.6 % (11.5-14.5); White Blood Count 10.4 K/mm3 (4.5-10.0)
[2023-05-14] MEDS: BELLADONNA ALK/PHENOB ELIX 10 ML, MAG HYDROX/ALUMINUM HYD/SIMETH 30 ML, LIDOCAINE HCL 2... PO (19:09)
[2023-05-14 19:19] LABS: Alanine Aminotransferase 73 U/L (6-35); Albumin Level 4.5 g/dL (3.5-5.1); Alkaline Phosphatase 86 U/L (38-126); Anion Gap 8 mmol/L (8-16); Aspartate Amino Transferase 32 U/L (14-36); Bilirubin,Total 0.7 mg/dL (0.2-1.3); Blood Urea Nitrogen 21 mg/dL (7-17); Calcium 9.9 mg/dL (8.4-10.2); Carbon Dioxide 29 mmol/L (22-30); Chloride 99 mmol/L (98-107); Estimated CRCL calculation 58 ml/min; Estimated Glomerular Filt Rate > 60; Glucose 110 mg/dL (65-110); Lipase 121 U/L (23-300); Potassium 3.7 mmol/L (3.4-5.0); Sodium 136 mmol/L (137-145)
[2023-05-14 20:17] LABS: Appearance Urine Clear (Clear); Bilirubin Urine Negative (Negative); Blood Urine Negative (Negative); Color Urine Yellow (Yellow); Glucose Urine UA 3+ mg/dL (Negative); Ketones Urine Negative (Negative); Leukocyte Esterase Ur Negative LEU/UL (Negative); Nitrate Urine Negative (Negative); Protein Urine Negative (Negative); Specific Grav Ur 1.019 (1.001-1.035); Urobilinogen Urine 0.2 mg/dL (<2.0); pH Urine 6.5 (5.0-9.0)
[2023-05-14 20:18] LABS: Add Urine Microscopic? NO
== END 2023-05-14 23:10 | disposition home or self-care (01) ==
PROVIDERS: Emergency Provider Physician Assistant; PCP Internal Medicine
DX: K30 Functional dyspepsia (principal); R10.9 Unspecified abdominal pain; I10 Essential (primary) hypertension; K21.9 Gastro-esophageal reflux disease without esophagitis; Z87.891 Personal history of nicotine dependence; Z90.49 Acquired absence of other specified parts of digestive tract; Z79.84 Long term (current) use of oral hypoglycemic drugs; K57.90 Diverticulosis of intestine, part unspecified, without perforation or abscess without bleeding; K44.9 Diaphragmatic hernia without obstruction or gangrene; N28.1 Cyst of kidney, acquired; M48.14 Ankylosing hyperostosis [Forestier], thoracic region; M51.36 Other intervertebral disc degeneration, lumbar region; M53.3 Sacrococcygeal disorders, not elsewhere classified; M51.37 Other intervertebral disc degeneration, lumbosacral region; M16.0 Bilateral primary osteoarthritis of hip
CPT/HCPCS: 36415; 74177; 80053; 81003; 83690; 85025; 93005; 99284; A9270; Q9967

== ENCOUNTER 2023-09-07 16:29 | Emergency (ER) | payer MEDICARE, MEDICAID, SELFPAY ==
--- NOTE | ~2023-09-07 | CT_ITS ---
EXAMINATION: CT abdomen pelvis w con DATE: 09/07/2023 19:30 INDICATION: Upper abdominal pain. Nausea, vomiting, and diarrhea. TECHNIQUE: Computed tomography (CT) of the abdomen and pelvis was performed with 100 mL Omnipaque 350 intravenous contrast. Automated exposure control and iterative reconstruction technique were employe d. The dose-length product was 1185.97 mGy-cm. COMPARISON: CT abdomen and pelvis 05/14/2023 FINDINGS: The visualized portions of the lung bases demonstrate mild atelectasis. No pleural effusion . The heart size is normal. No pericardial effusion. There is a small sliding hiatal hernia. The live r and spleen are normal. There are changes of cholecystectomy. The pancreas, adrenal glands, and left kidney are normal. There is a 5 mm cyst in right kidney. There are no dilated loops of bowel. The ap pendix is normal. There are no pathologically enlarged lymph nodes. There is no free intraperitoneal fluid. There is severe thoracic and lumbar spondylosis. There are chronic bilateral L5 pars defects. IMPRESSION: 1. Small sliding hiatal hernia. Reviewed, dictated and finalized at location [facility]. PPER PRELIMINARY
[2023-09-07 16:37] VITALS: BP 151/77; PULSE 86; RESP 16; TEMP 36.4; O2SAT 100
[2023-09-07 18:45] LABS: Basophils Percent Auto 0.4 % (0.2-1.2); Eosinophils Absolute Auto 0.1 K/mm3 (0-0.3); Eosinophils Percent Auto 0.9 % (0-4.4); Hematocrit 39.4 % (37.0-47.0); Hemoglobin 12.2 g/dL (12.0-15.0); Immature Granulocyte Absolute 0.01 K/mm3 (0.00-0.031); Immature Granulocyte Percent A 0.1 % (0-0.5); Lymphocytes Absolute Auto 2.84 K/mm3 (0.9-3.2); Lymphocytes Percent Auto 42.2 % (18.3-44.2); Mean Corpuscular Hemoglobin 28.2 pg (26-34); Mean Platelet Volume 10.1 fl (7.4-10.4); Monocytes Absolute Auto 0.7 K/mm3 (0.1-0.6); Neutrophils Absolute Auto 3.1 K/mm3 (1.3-6.7); Neutrophils Percent Auto 46.4 % (45.5-73.1); Platelet Count Result 268 k/mm3 (150-375); Red Blood Count 4.33 M/mm3 (4.2-5.4); Red Cell Distribution Width 12.7 % (11.5-14.5); White Blood Count 6.7 K/mm3 (4.5-10.0)
[2023-09-07 18:55] LABS: Alanine Aminotransferase 83 U/L (6-35); Alkaline Phosphatase 101 U/L (38-126); Anion Gap 5 mmol/L (8-16); Aspartate Amino Transferase 47 U/L (14-36); Bilirubin,Total 0.7 mg/dL (0.2-1.3); Blood Urea Nitrogen 12 mg/dL (7-17); Calcium 9.8 mg/dL (8.4-10.2); Carbon Dioxide 29 mmol/L (22-30); Chloride 104 mmol/L (98-107); Estimated CRCL calculation 63 ml/min; Estimated Glomerular Filt Rate > 60; Glucose 95 mg/dL (65-110); Lipase 53 U/L (23-300); Magnesium 1.7 mg/dL (1.6-2.3); Potassium 3.3 mmol/L (3.4-5.0); Sodium 138 mmol/L (137-145)
--- NOTE | 2023-09-07 19:05 | ECG_ITS ---
Measurements Intervals [place] Rate: 66 P: 71 [place]: 190 QRS: 58 QRSD: 89 T: 45 QT: 380 QTc: 400 Interpretive Statements SINUS RHYTHM BASELINE ARTIFACT- V4-V6 NORMAL ECG COMPARED TO ECG 05/14/2023 18:54:14 NO SIGNIFICANT CHANGES Electronically Signed On 09-07-2023 20:46:38 [employer] by Matty Carter D.O.
[2023-09-07] MEDS: SODIUM CHLORIDE 0.9% IV 1,000 ML 999 ML IV CONT (19:13)
[2023-09-07] MEDS: ONDANSETRON INJ 4 MG/2 ML VIAL IV PUSH (19:14)
[2023-09-07] MEDS: FAMOTIDINE 20 MG/2 ML VIAL IV PUSH (19:14)
[2023-09-07 19:30] LABS: Troponin I < 0.012 ng/mL (0.000-0.034)
--- NOTE | 2023-09-07 19:36 | ED_ITS ---
HPI - Nausea/Vomiting/Diarrhea General Chief complaint: Nausea/Vomiting/Diarrhea Stated complaint: nausea/vomitting Time Seen by Provider: 09/07/23 17:35 Source: patient Mode of arrival: ambulatory Limitations: no limitations History of Present Illness HPI Narrative: Patient is a 67-year-old female who presents the ED with report of nausea, vomiting, abdominal pain. Patient reports she was at the dinner on Wednesday night and thinks the food she ate was spoiled. She began feeling ill afterwards and has had persistent nausea and vomiting since then. Reports difficulty keeping anything down. She complains of pain throughout her upper abdomen. Reports chronic diarrhea, denies changes in bowel patterns. Denies rectal bleeding, melena, fevers, cough or cold symptoms, chest pain, difficulty breathing, dysuria, hematuria. Related Data Home Medications Medication Instructions Recorded Confirmed acetaminophen 500 mg PO Q6H PRN Fever Or Pain 07/22/20 07/22/20 benzonatate 100 mg PO Q8H PRN Cough 07/22/20 07/22/20 diphenoxylate-atropine 2.5 1 tablet PO Q6H PRN Diarrhea 07/22/20 07/22/20 mg-0.025 mg tablet doxazosin 2 mg tablet 2 mg PO DAILY 07/22/20 07/22/20 hydrochlorothiazide 25 mg tablet 25 mg PO DAILY 07/22/20 07/22/20 losartan 100 mg tablet 100 mg PO DAILY 07/22/20 07/22/20 metoprolol succinate 50 mg 50 mg PO DAILY 07/22/20 07/22/20 tablet,extended release 24 hr omeprazole 20 mg capsule,delayed 20 mg PO DAILY 07/22/20 07/22/20 release spironolactone 25 mg tablet 25 mg PO DAILY 07/22/20 07/22/20 metformin 500 mg tablet 500 mg PO BID 02/17/21 Allergies Allergy/AdvReac Type Severity Reaction Status Date / Time codeine Allergy Unknown Unknown Verified 09/07/23 17:37 propoxyphene Allergy Unknown Other Verified 09/07/23 17:37 Review of Systems Review of Systems: CONSTITUTIONAL: Denies fever, chills, or sweats. CARDIOVASCULAR: Denies chest pain. RESPIRATORY: Denies dyspnea. GASTROINTESTINAL: See HPI. GENITOURINARY: Denies dysuria or hematuria. All systems reviewed & are unremarkable except as noted in HPI and below PMFSH Past Medical History Medical History Essential hypertension GERD (gastroesophageal reflux disease) Hepatic steatosis Surgical History Surgical History History of History of cholecystectomy Family History Family History Mother Diabetes mellitus Hypertension Social History Social History Social History: Patient lives at home alone. She is no longer working. She wishes to list her son, Vinicius, as her surrogate MDM. She wishes to be a full code. Her PCP is Dr. Chavarria Smoking status: Former smoker Smoking end date: 08/23/89 Additional smoking assessment comments: Smoked 2ppd x 6 years. Quit 30 years ago Alcohol intake: never Substance use: never Gender identity (if verbalized by the patient): Female Spiritual care concerns: No Exam Narrative: GENERAL: Well appearing, obese with BMI of 37.9, non-toxic, in no acute distress. HEAD: Normocephalic, atraumatic. RESPIRATORY: Airway patent, respirations nonlabored. Clear to auscultation bilaterally, no rales, rhonchi, wheezing. CARDIOVASCULAR: Regular rate and rhythm without murmurs, rubs, or gallops. ABDOMINAL: Soft, mild tenderness throughout periumbilical region and epigastric region, nondistended. Normoactive BS. MUSCULOSKELETAL: Moves all extremities. No gross deformities. SKIN: Warm, dry, normal color. NEURO: A&O X3. Speech clear. Cranial nerves II-XII grossly intact. Steady gait. No ataxic movements. PSYCHIATRIC: Appropriate mood and affect. Normal interaction. Course Vital Signs Vital signs: Vital Signs Temperature 97.5 F L 09/07/23 16:37 Pulse Rate 86 09/07/23 16:37 Respiratory Rate 16 09/07/23 16:37 Blood Pressure 151/77 H 09/07/23 16:37 Pulse Oximetry 100 09/07/23 16:37 Oxygen Delivery Room Air 09/07/23 16:37 Temperature 97.5 F L 09/07/23 16:37 Pulse Rate 86 09/07/23 16:37 Respiratory Rate 16 09/07/23 16:37 Blood Pressure 151/77 H 09/07/23 16:37 Pulse Oximetry 100 09/07/23 16:37 Oxygen Delivery Room Air 09/07/23 16:37 MDM - Nausea/Vomiting/Diarrhea MDM Narrative Medical decision making narrative: Patient presented to ED with several day history of nausea, pain, upper abdominal pain. She believes this is related to bad food exposure on Wednesday. Vitals stable upon arrival. Patient in no acute distress. Afebrile. CBC without leukocytosis. CMP fairly unremarkable, potassium slightly low at 3.3, replaced orally. Normal magnesium. Otherwise stable electrolytes, stable kidney function. Very mild transaminitis noted. Normal lipase. Viral swabs negative. EKG nonischemic. Troponin negative. CT abdomen pelvis obtained and showing small sliding hiatal hernia, no other acute abnormalities. No abnormalities of liver. Patient feeling better with supportive therapy, discussed lab and imaging findings. She was able to tolerate p.o. intake. Will d/c home with nausea medication. Advised close follow-up with primary care doctor for further evaluation. Patient in agreement with plan. She feels comfortable going home. D/C in stable condition. Medical Records Attestation: I reviewed the patient's medical records. Lab Data Attestation: I reviewed the patient's lab results. 09/07/23 18:39 09/07/23 18:39 Labs: Lab Results 09/07/23 09/07/23 Range/Units 18:39 19:10 WBC 6.7 (4.5-10.0) K/mm3 RBC 4.33 (4.2-5.4) M/mm3 Hgb 12.2 (12.0-15.0) g/dL Hct 39.4 (37.0-47.0) % MCV 91.0 (80-100) fl MCH 28.2 (26-34) pg MCHC 31.0 L (32-36) g/dl RDW 12.7 (11.5-14.5) % Plt Count 268 (150-375) k/mm3 MPV 10.1 (7.4-10.4) fl Immature Gran % (Auto) 0.1 (0-0.5) % Neut % (Auto) 46.4 (45.5-73.1) % Lymph % (Auto) 42.2 (18.3-44.2) % [place] % (Auto) 10.0 H (2.6-8.5) % Eos % (Auto) 0.9 (0-4.4) % Baso % (Auto) 0.4 (0.2-1.2) % Lymph # (Auto) 2.84 (0.9-3.2) K/mm3 [place] # (Auto) 0.7 H (0.1-0.6) K/mm3 Eos # (Auto) 0.1 (0-0.3) K/mm3 Baso # (Auto) 0.0 (0.0-0.1) K/mm3 Abs Immat Gran (auto) 0.01 (0.00-0.031) K/mm3 Absolute Neuts (auto) 3.1 (1.3-6.7) K/mm3 Absolute Nucleated RBC 0.0 (0.0-0.012) K/mm3 Nucleated RBC % 0.0 (0.0-0.2) % Sodium 138 (137-145) mmol/L Potassium 3.3 L (3.4-5.0) mmol/L Chloride 104 (98-107) mmol/L Carbon Dioxide 29 (22-30) mmol/L Anion Gap 5 L (8-16) mmol/L BUN 12 D (7-17) mg/dL Creatinine 0.80 (0.7-1.0) mg/dL Estim Creat Clear Calc 63 ml/min Estimated GFR > 60 (59 - ) Glucose 95 (65-110) mg/dL Calcium 9.8 (8.4-10.2) mg/dL Magnesium 1.7 (1.6-2.3) mg/dL Total Bilirubin 0.7 (0.2-1.3) mg/dL AST 47 H (14-36) U/L ALT 83 H (6-35) U/L Alkaline Phosphatase 101 (38-126) U/L Troponin I < 0.012 (0.000-0.034) ng/mL Total Protein 7.0 (6.3-8.2) g/dL Albumin 4.0 (3.5-5.1) g/dL Lipase 53 (23-300) U/L Influenza A (RT-PCR) Negative (Negative) Influenza B (RT-PCR) Negative (Negative) RSV (RT-PCR) Negative (Negative) SARS-CoV-2 RNA (RT-PCR) Negative (Negative) Imaging Data Attestation: I personally reviewed and interpreted this imaging study as follows: Radiologist's impression: ITS Impressions Abdomen/Pelvis CT 09/07/23 19:34 IMPRESSION: 1. Small sliding hiatal hernia. ECG Data EKG #1: Attestation: I personally reviewed and interpreted this ECG as follows: ECG completion date: 09/07/23 ECG completion time: 19:19 EKG Interpretation: normal rate (66), sinus rhythm and no ST changes Discharge Plan Discharge Clinical Impression: Gastroenteritis, Hiatal hernia Nausea and vomiting Qualifiers: Vomiting type: unspecified Qualified Code(s): R11.2 - Nausea with vomiting, unspecified Patient Disposition: Home, Self-Care Condition: Stable Instructions: Antibiotic Form, Dehydration (ED), Clear Liquid Diet (ED), Gastroenteritis (ED), Acute Nausea and Vomiting (ED) Additional Instructions: Your workup here was reassuring. Utilize zofran as needed for further nausea. Continue tylenol and ibuprofen as needed for pain. Increase fluid intake. Recommend electrolyte rich fluids, gatorade, pedialyte, body armour. Recommend clear liquids or bland diet until symptoms improve, such as bananas, rice, applesauce, toast, or crackers. Follow up with your primary care doctor for further evaluation. Return to the ED if you experience worsening or severe symptoms, unable to keep down food or drink, severe pain, fevers, rectal bleeding, vomiting blood, or any other symptoms of concern. Prescriptions: New ondansetron 4 mg tablet,disintegrating 4 mg PO Q8H PRN (Reason: nausea and vomiting) Qty: 15 0RF No Action metformin 500 mg tablet 500 mg PO BID naproxen 500 mg tablet 500 mg PO BID PRN (Reason: pain) Qty: 20 0RF cyclobenzaprine 10 mg tablet 10 mg PO TID PRN (Reason: muscle spasm) Qty: 20 0RF metoprolol succinate 50 mg tablet extended release 24 hr 50 mg PO DAILY diphenoxylate-atropine 2.5-0.025 mg tablet 1 tablet PO Q6H PRN (Reason: Diarrhea) spironolactone 25 mg tablet 25 mg PO DAILY omeprazole 20 mg capsule,delayed release(DR/EC) 20 mg PO DAILY Rx Instructions: before breakfast hydrochlorothiazide 25 mg tablet 25 mg PO DAILY losartan 100 mg tablet 100 mg PO DAILY doxazosin 2 mg tablet 2 mg PO DAILY acetaminophen 500 mg 500 mg PO Q6H PRN (Reason: Fever Or Pain) benzonatate 100 mg 100 mg PO Q8H PRN (Reason: Cough) albuterol sulfate [Proventil HFA] 90 mcg/actuation Hfa Aerosol Inhaler 2 puff inhalation Q6H PRN (Reason: shortness of breath or wheezing) Qty: 6.7 0RF Rx Instructions: Take 2 puffs inhaled every 6 hours as needed for shortness of breath nitrofurantoin monohyd/m-cryst [Macrobid] 100 mg capsule 100 mg PO Q12H 5 Days Qty: 10 0RF Rx Instructions: must administer with a meal/food Follow-up/Referrals: John,Lance Saxena MD [Primary Care Provider] - Time of Disposition: 20:45
[2023-09-07 19:53] LABS: Influenza A QL RT-PCR Negative (Negative); Influenza B QL RT-PCR Negative (Negative); RSV RNA, RT-PCR Negative (Negative); SARS-CoV-2 RNA PCR Negative (Negative)
[2023-09-07] MEDS: BELLADONNA ALK/PHENOB ELIX 10 ML, MAG HYDROX/ALUMINUM HYD/SIMETH 30 ML, LIDOCAINE HCL 2... PO (20:17)
[2023-09-07] MEDS: POTASSIUM CHLORIDE 20 MEQ PACKET (FOR LIQUID) PO (20:18)
[2023-09-07 21:02] VITALS: BP 147/86; PULSE 66; RESP 19; TEMP 36.8; O2SAT 100
== END 2023-09-07 21:03 | disposition home or self-care (01) ==
PROVIDERS: Emergency Provider Physician Assistant; PCP Internal Medicine
DX: K52.9 Noninfective gastroenteritis and colitis, unspecified (principal); K44.9 Diaphragmatic hernia without obstruction or gangrene; I10 Essential (primary) hypertension; K21.9 Gastro-esophageal reflux disease without esophagitis; Z87.891 Personal history of nicotine dependence; Z90.49 Acquired absence of other specified parts of digestive tract; Z79.84 Long term (current) use of oral hypoglycemic drugs; Z20.822 Contact with and (suspected) exposure to COVID-19
CPT/HCPCS: 36415; 74177; 80053; 83690; 83735; 84484; 85025; 87637; 93005; 96361; 96374; 96375; 99284; A9270; J2405; J7030; Q9967

== ENCOUNTER 2024-05-23 19:29 | Emergency (ER) | payer MEDICARE, MEDICAID, SELFPAY ==
--- NOTE | ~2024-05-23 | CT_ITS ---
Non-contrast Head CT History: Headache COMPARISON: 09/05/2020 Technique: Axial non-contrast imaging of the brain was performed. Dose reduction technique was used on this scan by utilizing automated exposure control and iterative reconstruction technique. The dose -length product (DLP) was 529.67 mGy-cm. Findings: There is no evidence of intracranial hemorrhage, mass lesion, or acute infarct. Brain par enchyma appears normal. The ventricles and subarachnoid spaces are normal in size. The calvarium ap pears normal. The visualized paranasal sinuses and mastoid air cells are clear. Impression: No significant abnormality seen. Reviewed, dictated and finalized at location . Impression: No significant abnormality seen.
[2024-05-23 19:38] VITALS: BP 146/93; PULSE 61; RESP 16; TEMP 36.3; O2SAT 100
[2024-05-23 19:52] LABS: Glucose Point of Care 98 mg/dl (65-105)
--- NOTE | 2024-05-24 01:51 | ED.GENADULT ---
HPI - General Adult General Chief complaint: Headache Stated complaint: headache, I think my sugar is high Time Seen by Provider: 05/24/24 01:26 History of Present Illness HPI narrative: Patient is a 68-year-old female presents emergency department with chief complaint of headache. Patient reports that she was diagnosed with COVID 3 weeks ago reports that she went to a birthday parties ate a bunch of sweets and reports that she started having headache in the occipital her head. Patient reports nausea no vomiting reports that of she took some Tylenol that did help with discomfort. Related Data Home Medications Medication Instructions Recorded Confirmed acetaminophen 500 mg PO Q6H PRN Fever Or Pain 07/22/20 07/22/20 benzonatate 100 mg PO Q8H PRN Cough 07/22/20 07/22/20 diphenoxylate-atropine 2.5 1 tablet PO Q6H PRN Diarrhea 07/22/20 07/22/20 mg-0.025 mg tablet doxazosin 2 mg tablet 2 mg PO DAILY 07/22/20 07/22/20 hydrochlorothiazide 25 mg tablet 25 mg PO DAILY 07/22/20 07/22/20 losartan 100 mg tablet 100 mg PO DAILY 07/22/20 07/22/20 metoprolol succinate 50 mg 50 mg PO DAILY 07/22/20 07/22/20 tablet,extended release 24 hr omeprazole 20 mg capsule,delayed 20 mg PO DAILY 07/22/20 07/22/20 release spironolactone 25 mg tablet 25 mg PO DAILY 07/22/20 07/22/20 metformin 500 mg tablet 500 mg PO BID 02/17/21 Allergies Allergy/AdvReac Type Severity Reaction Status Date / Time codeine Allergy Unknown Unknown Verified 05/23/24 19:30 propoxyphene Allergy Unknown Other Verified 05/23/24 19:30 Review of Systems Review of Systems: A 10 system review of systems was completed on the patient and is negative except for what is stated in the HPI. Nursing and ancillary documentation was reviewed. [facility] Past Medical History Medical History Essential hypertension GERD (gastroesophageal reflux disease) Hepatic steatosis Surgical History Surgical History History of History of cholecystectomy Family History Family History Mother Diabetes mellitus Hypertension Social History Social History Social History: Patient lives at home alone. She is no longer working. She wishes to list her son, Vinicius, as her surrogate MDM. She wishes to be a full code. Her PCP is Dr. Chavarria Smoking status: Former smoker Smoking end date: 08/23/89 Additional smoking assessment comments: Smoked 2ppd x 6 years. Quit 30 years ago Alcohol intake: never Substance use: never Gender identity (if verbalized by the patient): Female Spiritual care concerns: No Exam Narrative: GENERAL: Well-appearing, well-nourished, and in no acute distress. HEAD: Normocephalic, atraumatic. EYES: PERRLA and EOMI. ENT: Nares clear, no rhinorrhea or epistaxis. Mucous membranes moist. NECK: Supple. CHEST: Clear to auscultation. No respiratory distress. HEART: Regular rate and rhythm. No murmur heard. Normal peripheral pulses. ABDOMEN: Soft, nontender, nondistended, normal active bowel sounds. EXTREMITIES: Normal range of motion. No edema. SKIN: Warm, dry, no rash. NEURO: No focal deficits. Alert and oriented x3. PSYCH: Normal mood and affect. Course Vital Signs Vital signs: Vital Signs Temperature 36.3 C L 05/23/24 19:38 Pulse Rate 61 05/23/24 19:38 Respiratory Rate 16 05/23/24 19:38 Blood Pressure 146/93 H 05/23/24 19:38 Pulse Oximetry 100 05/23/24 19:38 Oxygen Delivery Room Air 05/23/24 19:38 Temperature 36.3 C L 05/23/24 19:38 Pulse Rate 67 05/24/24 02:36 Respiratory Rate 18 05/24/24 02:36 Blood Pressure 144/87 H 05/24/24 02:36 Pulse Oximetry 99 05/24/24 02:36 Oxygen Delivery Room Air 05/23/24 19:38 Medical Decision Making MDM
[2024-05-24] MEDS: SODIUM CHLORIDE 0.9% IV 1,000 ML 999 ML IV CONT (02:31)
[2024-05-24] MEDS: PROCHLORPERAZINE EDISYLATE 10 MG/2 ML VIAL IV PUSH (02:32)
[2024-05-24] MEDS: diphenhydrAMINE HCl INJ 50 MG/ML VIAL IV PUSH (02:32)
[2024-05-24 02:36] VITALS: BP 144/87; PULSE 67; RESP 18; O2SAT 99
[2024-05-24 02:38] LABS: Basophils Absolute Auto 0.1 K/mm3 (0.0-0.1); Basophils Percent Auto 0.9 % (0.2-1.2); Eosinophils Absolute Auto 0.3 K/mm3 (0-0.3); Eosinophils Percent Auto 4.4 % (0-4.4); Hematocrit 39.8 % (37.0-47.0); Immature Granulocyte Absolute 0.01 K/mm3 (0.00-0.031); Immature Granulocyte Percent A 0.1 % (0-0.5); Lymphocytes Absolute Auto 3.55 K/mm3 (0.9-3.2); Lymphocytes Percent Auto 52.5 % (18.3-44.2); Mean Corpuscular HGB Conc 32.7 g/dl (32-36); Mean Corpuscular Hemoglobin 28.1 pg (26-34); Mean Platelet Volume 10.5 fl (7.4-10.4); Monocytes Absolute Auto 0.6 K/mm3 (0.1-0.6); Monocytes Percent Auto 9.5 % (2.6-8.5); Neutrophils Absolute Auto 2.2 K/mm3 (1.3-6.7); Neutrophils Percent Auto 32.6 % (45.5-73.1); Platelet Count Result 241 k/mm3 (150-375); Red Blood Count 4.63 M/mm3 (4.2-5.4); Red Cell Distribution Width 13.3 % (11.5-14.5); White Blood Count 6.8 K/mm3 (4.5-10.0)
[2024-05-24 02:53] LABS: Alanine Aminotransferase 21 U/L (6-35); Albumin Level 4.1 g/dL (3.5-5.1); Alkaline Phosphatase 109 U/L (38-126); Anion Gap 6 mmol/L (4-12); Aspartate Amino Transferase 25 U/L (14-36); Bilirubin,Total 0.4 mg/dL (0.2-1.3); Blood Urea Nitrogen 10 mg/dL (7-17); Calcium 9.6 mg/dL (8.4-10.2); Carbon Dioxide 29 mmol/L (22-30); Chloride 103 mmol/L (98-107); Estimated Glomerular Filt Rate > 60; Glucose 92 mg/dL (65-110); Sodium 138 mmol/L (137-145)
== END 2024-05-24 03:54 | disposition home or self-care (01) ==
PROVIDERS: Emergency Provider Emergency Medicine; PCP Internal Medicine
DX: R51.9 Headache, unspecified (principal); I10 Essential (primary) hypertension; K21.9 Gastro-esophageal reflux disease without esophagitis; Z86.16 Personal history of COVID-19; Z87.891 Personal history of nicotine dependence; Z90.49 Acquired absence of other specified parts of digestive tract; Z79.84 Long term (current) use of oral hypoglycemic drugs; Z79.899 Other long term (current) drug therapy
CPT/HCPCS: 36415; 70450; 80053; 82948; 85025; 96361; 96374; 96375; 99284; J0780; J1200; J7030

== ENCOUNTER 2025-04-19 21:14 | Emergency (ER) | payer MEDICARE, MEDICAID, SELFPAY ==
--- OUTSIDE RECORDS SUMMARY | 2025-04-18 15:45 | XMS_ITS | Encounter Summary ---
Author Organization [facility] Healthcare Address [address] [place] [address] Care Team Providers Care Truck Hop Name Role Phone Helena Leon MD Unavailable Mary Valencia Ud, MD Unavailable Lance Lopez MD Primary Care Provider [phone] Vijay Artis MD Unavailable Reason for Referral * Diagnostic Imaging (Routine) - Authorized Specialty Diagnoses / Procedures Referred By Contac t Referred To Contact Diagnoses Breast cancer screening by mammogram Procedures Screening Mammogram Bilateral W Lance Ceron MD [address] [address] Phone: tel: fax: [address] [phone] Referral ID Status Reason Start Date Expiration Date V isits Requested Visits Authorized [id number] Authorized 04/18/2025 05/18/2026 1 1 Reason for Visit * Reason Comments Follow-up 3 mo on DMII, HTN, R LS & lab results 03/15/2025 Vaginal Symptoms Vaginal irritation - thinks it is from wearing a pad at night Med Refill Requesting a refill on baclofen Encounter Details Date Type Department Care Team (Late st Contact Info) Description 04/18/2025 3:45 PM CDT Office Visit [facility] Internal Medicine [address] [facility] [address] [place] [phone] Lance Loepz MD [address] [place] [address] [address] [place] [address] Chronic alcoholic gastritis without hemorrhage (Primary Dx); Hypertension, essential; Obstructive sleep apnea; Morbid obesity (HCC); Statin myopathy; Controlled type 2 diabetes mellitus without complication, without long-term current use of insulin; Dyslipidemia; BMI 33.0-33.9,adult; Breast cancer screening by mammogram; Vaginal itching Social History Tobacco Use Types Packs/Day Years Used Date Smoking Tobacco: Former Cigarettes 2 1991 Passive Smoke Exposure: Past Smokeless Tobacco: Former Alcohol Use Standard Drinks/Week Comments Yes 0 (1 standard drink = 0.6 oz pur e alcohol) PHQ-2 Answer Date Recorded PHQ-2 Total Score (If total score is 3 or more points, staff should administer the PHQ-9) 0 04/18/2025 AUDIT-C Answer Date Recorded Q1: How often do you have a drink containing alc ohol? Monthly or less 04/18/2025 Q2: How many drinks containi ng alcohol do you have on a typical day when you are drinking? 1 or 2 04/18/2025 Q3: How often do you have si x or more drinks on one occasion? Never 04/18/2025 Personal Safety Answer Date Recorded Have you ever been in or are you currently in a harmful physical or emotional relationship or is someone making you feel afraid or unsafe? Denies 12/22/2023 Comments No Sex and Gender Information Value Date Recorded Sex Assigned at Not on file Legal Sex Female 2:04 AM SYSTEMS LIBRARIAN Gender Identity Not on file Sexual Orientation Not on file Occupation Industry Job Start Date Job End Date Retired Not on file Not on file Not on file documented as of this encounter Last Filed Vital Signs Vital Sign Reading Time Taken Comments Blood Pressure 124/78 04/18/2025 4:01 PM CDT Pulse 64 04/18/2025 4:01 PM CDT Temperature 36.2 C (97.2 F) 04/18/2025 4:01 PM CDT Respiratory Rate 16 04/18/2025 4:01 PM CDT Oxygen Saturation 99% 04/18/2025 4:01 PM CDT Inhaled Oxygen Concentration - - Weight 83.9 kg (184 lb 14.4 oz) 04/18/2025 4:01 PM CDT Height 157.5 cm (5' 2) 04/18/2025 4:01 PM CDT Body Mass Index 33.82 04/18/2025 4:01 PM CDT documented in this encounter Functional Status * AUDIT-C Score Answer Date of Assessment Author 1 04/18/2025 3:58 PM CDT Julian Nguyen MA * Question Answer Date of Assessment Author Q1: How often do you have a drink containing alcohol? Monthly or less 04/18/2025 3:58 PM CDT Bell Nguyen MA Q2: How many drinks containing alcohol do you have on a typical day when you are drinking? 1 or 2 04/18/2025 3:58 PM CDT Bell Nguyen MA Q3: How often do you have six or more drinks on one occasion? Never 04/18/2025 3:58 PM CDT Bell Nguyen MA documented as of this encounter Ordered Prescriptions Prescription Sig Dispense Quantity Refills Last Filled Start Date End Date amoxicillin (AMOXIL) 500 mg tablet/capsule Take 1 tablet/capsule (500 mg total) by mouth 3 (three) times a day for 10 days 21 tablet/capsule 04/18/2025 5 baclofen (LIORESAL) 10 mg tablet Take 1 tablet (10 mg total) by mouth 3 (three) times a day 30 tablet 04/18/2025 5 fluconazole (DIFLUCAN) 150 mg tablet Take 1 tablet (150 mg total) by mouth once for 1 dose Take one tab now. Repeat in 7 days if symptoms persist. 2 tablet 04/18/2025 5 documented in this encounter Progress Notes * Lance Lopez MD - 04/18/2025 3:45 PM CDT Images from the original note were not included. Subjective/Objective Patient ID: Chetna Steele is a 69 y.o. female. Chief Complaint Chief Complaint Patient presents with Follow-up 3 mo on DMII, HTN, RLS & lab results 03/15/2025 Vaginal Symptoms Vaginal irritation - thinks it is from wearing a pad at night Med Refill Requesting a refill on baclofen HPI: Patient came for routine follow-up. She complains of irritation in the vaginal area for few days after wearing pads. No discharge. She wants refill on baclofen for chronic back pain. Lab resultsdiscussed. Current Outpatient Medications Medication Sig Dispense Refill acetaminophen (TYLENOL) 325 mg tablet Take 1 tablet (325 mg total) by mouth every 4 (four) hours asneeded ammonium lactate (LAC-HYDRIN) 12 % lotion Apply topically as needed for dry skin 225 g 1 blood-glucose meter [facility] 1 kit daily One Touch Verio Glucometer 1 each 0 clobetasol (TEMOVATE) 0.05 % cream Apply 0.05 % topically 4 (four) times a day as needed coenzyme Q10 10 mg capsule Take 1 capsule (10 mg total) by mouth daily colestipoL (COLESTID) 1 gram tablet TAKE 1 TABLET BY MOUTH TWICE A DAY SWALLOW WHOLE WITH LIQUID. DO NOT CRUSH/CHEW/DIVIDE 180 tablet 0 diclofenac sodium (VOLTAREN) 1 % gel Apply 2 g topically 3 (three) times a day 100 g 3 dicyclomine (BENTYL) 10 mg capsule Take 1 capsule (10 mg total) by mouth 4 (four) times a day diphenoxylate-atropine (LOMOTIL) 2.5-0.025 mg per tablet TAKE 1 TABLET BY MOUTH FOUR TIMES A DAY ASNEEDED FOR DIARRHEA 30 tablet 2 ezetimibe (ZETIA) 10 mg tablet TAKE 1 TABLET BY MOUTH EVERY DAY 100 tablet 1 famotidine (PEPCID) 20 mg tablet TAKE 1 TABLET BY MOUTH EVERY DAY 90 tablet 1 Farxiga 5 mg tablet TAKE 1 TABLET (5 MG TOTAL) BY MOUTH DAILY. 90 tablet 1 ketoconazole (NIZORAL) 2 % cream Apply topically 2 (two) times a day 60 g 1 lancets [facility] Use 1 twice daily to check blood sugar 200 each 2 lidocaine (LIDODERM) 5 % Place 1 patch on the skin daily for 12 hours Apply to painful area 12 hours per day, remove for 12 hours. 30 patch 3 losartan (COZAAR) 100 mg tablet TAKE 1 TABLET BY MOUTH EVERY DAY 90 tablet 0 meclizine (ANTIVERT) 25 mg tablet Take 1 tablet (25 mg total) by mouth 3 (three) times a day as needed for dizziness 30 tablet 3 meloxicam (MOBIC) 7.5 mg tablet TAKE 1 TABLET BY MOUTH EVERY DAY 30 tablet 1 metoprolol XL (TOPROL-XL) 50 mg extended release tablet TAKE 1 TABLET BY MOUTH EVERY DAY 100 tablet1 multivitamin tablet Take 1 tablet by mouth omeprazole (PriLOSEC) 40 mg capsule TAKE 1 CAPSULE (40 MG TOTAL) BY MOUTH DAILY. 90 capsule 1 OneTouch Delica Plus Lancet 33 gauge misc USE 1 TWICE DAILY TO CHECK BLOOD SUGAR OneTouch Verio Flex meter misc USE DIRECTED 1 each 1 XangatiTouch Verio test strips strip USE 1 STRIP TWICE DAILY TO CHECK BLOOD SUGAR 200 strip 1 spironolactone (ALDACTONE) 25 mg tablet TAKE 1 TABLET BY MOUTH EVERY DAY 90 tablet 1 topiramate (TOPAMAX) 25 mg tablet Take 1 tablet (25 mg total) by mouth 2 (two) times a day 180 tablet 1 valACYclovir (VALTREX) 1 gram tablet Take 2 tabs (2000 mg) 2 times a days for 1 day. 14 tablet 0 amoxicillin (AMOXIL) 500 mg tablet/capsule Take 1 tablet/capsule (500 mg total) by mouth 3 (three) times a day for 10 days 21 tablet/capsule 0 baclofen (LIORESAL) 10 mg tablet Take 1 tablet (10 mg total) by mouth 3 (three) times a day 30 tablet 0 fluconazole (DIFLUCAN) 150 mg tablet Take 1 tablet (150 mg total) by mouth once for 1 dose Take onetab now. Repeat in 7 days if symptoms persist. 2 tablet 0 No current facility-administered medications for this visit. Allergies Allergen Reactions Gabapentin Hallucinations [id number]-[id number]-[id number] Reductase Inhibitors Muscle pain Aspirin Unknown Codeine Phosphate Unknown Propoxyphene Unknown Acetaminophen-Codeine Nausea & Vomiting and Nausea only Doravirine Nausea only Past Medical History: Diagnosis Date Chronic constipation Diabetes mellitus (HCC) Gastric ulcer GERD (gastroesophageal reflux disease) Hyperlipidemia Hypertension Type 2 diabetes mellitus Vertigo Past Surgical History: Procedure Laterality Date SECTION CHOLECYSTECTOMY COLONOSCOPY VAGINAL DELIVERY x3 Family History Problem Relation Age of Onset Hypertension Mother Diabetes Mother No Known Problems Father Diabetes Brother Hypertension Son Breast cancer Neg Hx Social History Tobacco Use Smoking status: Former Current packs/day: 0.00 Average packs/day: 2.0 packs/day for 10.0 years (20.0 ttl pk-yrs) Types: Cigarettes Start date: 1981 Quit date: 1991 Years since quittin.6 Passive exposure: Past Smokeless tobacco: Former Substance and Sexual Activity Drug use: Never Sexual activity: Defer Alcohol Use: Not At Risk (04/18/2025) AUDIT-C Frequency of Alcohol Consumption: Monthly or less Average Number of Drinks: 1 or 2 Frequency of Binge Drinking: Never Hospital Outpatient Visit on 03/18/2025 Component Date Value Report 03/18/2025 Value:Final Report: No growth of pathogens. Office Visit on 03/18/2025 Component Date Value Influenza A Ag, POC 03/18/2025 Negative Influenza B Ag, POC 03/18/2025 Negative COVID-19 Ag POC 03/18/2025 Presumptive Negative Rapid Strep A, POC 03/18/2025 Negative Lab on 03/15/2025 Component Date Value Albumin Ur 03/15/2025 <12.0 Creatinine Ur 03/15/2025 97.3 Albumin Creatinine Ratio* 03/15/2025 <12 Sodium 03/15/2025 138 Potassium, pl 03/15/2025 4.3 Chloride 03/15/2025 102 CO2 03/15/2025 28 Anion gap 03/15/2025 8 BUN 03/15/2025 22 Creatinine 03/15/2025 0.92 Glucose 03/15/2025 93 Calcium 03/15/2025 9.9 Bilirubin, total 03/15/2025 0.6 Protein, pl 03/15/2025 7.3 Albumin 03/15/2025 4.3 Alk phos 03/15/2025 129 ALT 03/15/2025 43 AST 03/15/2025 29 Hgb A1C 03/15/2025 5.9 (H) Estimated Average Glucose 03/15/2025 123 Cholesterol 03/15/2025 189 Triglycerides 03/15/2025 72 HDL 03/15/2025 71 LDL, calculated 03/15/2025 105 Non-HDL Cholesterol 03/15/2025 118 Chol/HDL ratio 03/15/2025 3 eGFR 03/15/2025 67 Review of Systems Constitutional: Negative for appetite change, fatigue and fever. HENT: Negative for ear discharge, ear pain and hearing loss. Negative for postnasal drip, rhinorrhea, sinus pressure, sneezing . Negative for sore throat. Eyes: Negative for pain and discharge. Respiratory: Negative for cough, chest tightness, shortness of breath and wheezing. Cardiovascular: Negative for chest pain, palpitations and leg swelling. Gastrointestinal: Negative for abdominal pain, constipation, diarrhea, nausea and vomiting. Endocrine: Negative for cold intolerance, heat intolerance, polydipsia and polyuria. Genitourinary: Negative for difficulty urinating, flank pain, frequency and hematuria. Musculoskeletal: Negative for back pain, myalgias and neck pain. Skin: Negative for color change and rash. Neurological: Negative for dizziness, seizures, syncope, weakness and numbness. Hematological: Does not bruise/bleed easily. Psychiatric/Behavioral: Negative for confusion and hallucinations. The patient is not nervous/anxious. BP 124/78 (BP Location: Left arm, Patient Position: Sitting) Pulse 64 Temp 36.2 ??C (97.2 ??F) (Temporal) Resp 16 Ht 157.5 cm (5' 2) Wt 83.9 kg (184 lb 14.4 oz) SpO2 99% BMI 33.82 kg/m?? Body mass index is 33.82 kg/m??. Physical Exam Constitutional: Patient is oriented to person, place, and time. Patient appears well-developed and well-nourished. HENT: Head: Normocephalic and atraumatic. Right Ear: External ear normal. Intact tympanic membrane Left Ear: External ear normal. Intact tympanic membrane Nose: Nose normal. Mouth/Throat: Oropharynx is clear and moist. Eyes: Pupils are equal, round, and reactive to light. EOM are normal. Neck: Normal range of motion. Neck supple. No thyromegaly present. Cardiovascular: Regular rate and rhythm. No murmur or gallop or rub. Pulmonary/Chest: Good air entry bilaterally. No wheezing or rales or other sounds. No chest tenderness or deformity Abdominal: Soft. No tenderness. No hepatosplenomegaly and no masses. Good bowel sounds. No hernia. Rectal: Not examined. Musculoskeletal: Normal range of motion. No tenderness or swelling or deformity. Lymphadenopathy: No cervical adenopathy. Extremities: No cyanosis, clubbing or edema. Neurological: Patient is alert and oriented to person, place, and time. Cranial nerves are intact. Reflexes are +2 all over, normal power and intact sensation bilaterally . Skin: Skin is warm. No rash noted. No pallor. Psychiatric: Patient has a normal mood and affect. Procedure Note: Diagnoses and all orders for this visit: Chronic alcoholic gastritis without hemorrhage (Primary) Assessment & Plan: Patient is maintained on Prilosec and Pepcid. Follow-up with the heel nailing machine operator Hypertension, essential Assessment & Plan: Continue current medications. Discussed low-salt diet. Discussed exercise on regular basis. Will continue to monitor Obstructive sleep apnea Assessment & Plan: Managed by the sleep specialist. Morbid obesity (HCC) Assessment & Plan: BMI Follow-up includes: nutrition counseling. The patient was advised to exercise 5 times a week for 30 minutes each time. We discussed low calorie diet. Discussed lifestyle changes. Statin myopathy Assessment & Plan: Patient has muscle ache with statins Controlled type 2 diabetes mellitus without complication, without long-term current use of insulin Assessment & Plan: Hemoglobin A1c is 5.8. Continue current medications, discussed low carbohydrate diet, advised to exercise on regular basis, advised to have annual eye exam. We will continue to monitor. Dyslipidemia Assessment & Plan: Patient is maintained on Zetia. She could not take statins because of muscle ache and weakness. Cholesterol improved. Continue low-fat diet. Encouraged more weight loss. BMI 33.0-33.9,adult Breast cancer screening by mammogram - Screening Mammogram Bilateral W Sumanth; Future Vaginal itching Assessment & Plan: Will try Diflucan 150 mg and repeat in 1 week if needed and patient will call for persistent symptoms Other orders - baclofen (LIORESAL) 10 mg tablet; Take 1 tablet (10 mg total) by mouth 3 (three) times a day - amoxicillin (AMOXIL) 500 mg tablet/capsule; Take 1 tablet/capsule (500 mg total) by mouth 3 (three) times a day for 10 days - fluconazole (DIFLUCAN) 150 mg tablet; Take 1 tablet (150 mg total) by mouth once for 1 dose Take one tab now. Repeat in 7 days if symptoms persist. documented in this encounter Miscellaneous Notes * Assessment & Plan Note - Lance Lopez MD - 04/18/2025 4:43 PM CDT Associated Problem(s): Statin myopathy Patient has muscle ache with statins * Assessment & Plan Note - Lance Lopez MD - 04/18/2025 4:42 PM CDT Associated Problem(s): Vaginal itching Will try Diflucan 150 mg and repeat in 1 week if needed and patient will call for persistent symptoms * Assessment & Plan Note - Lance Lopez MD - 04/18/2025 8:02 AM CDT Associated Problem(s): Obstructive sleep apnea Managed by the sleep specialist. * Assessment & Plan Note - Lance Lopez MD - 04/18/2025 8:01 AM CDT Associated Problem(s): Morbid obesity (HCC) BMI Follow-up includes: nutrition counseling. The patient was advised to exercise 5 times a week for 30 minutes each time. We discussed low calorie diet. Discussed lifestyle changes. * Assessment & Plan Note - Lance Lopez MD - 04/18/2025 8:01 AM CDT Associated Problem(s): Hypertension, essential Continue current medications. Discussed low-salt diet. Discussed exercise on regular basis. Will continue to monitor * Assessment & Plan Note - Lance Lopez MD - 04/18/2025 8:01 AM CDT Associated Problem(s): Dyslipidemia Patient is maintained on Zetia. She could not take statins because of muscle ache and weakness. Cholesterol improved. Continue low-fat diet. Encouraged more weight loss. * Assessment & Plan Note - Lance Lopez MD - 04/18/2025 8:01 AM CDT Associated Problem(s): Controlled type 2 diabetes mellitus without complication, without long-term current use of insulin Hemoglobin A1c is 5.8. Continue current medications, discussed low carbohydrate diet, advised to exercise on regular basis, advised to have annual eye exam. We will continue to monitor. * Assessment & Plan Note - Lance Lopez MD - 04/18/2025 8:01 AM CDT Associated Problem(s): Chronic gastritis without bleeding Patient is maintained on Prilosec and Pepcid. Follow-up with the heel nailing machine operator documented in this encounter Plan of Treatment Scheduled Orders Name Type Priority Associated Diagnoses Orde r Schedule Screening Mammogram Bilateral W Sumanth Imaging Schedule Routine, Read Routine (OP Routine) Breast cancer screening by mammogram Expected: 04/18/2025, Expires: 06/18/2026 documented as of this encounter Visit Diagnoses Diagnosis Chronic alcoholic gastritis without hemorrhage- Primary Hypertension, essential Unspecified essential hypertension Obstructive sleep apnea Obstructive sleep apnea (adult) (pediatric) Morbid obesity (HCC) Morbid obesity Statin myopathy Toxic myopathy Controlled type 2 diabetes mellitus without complication, without long-term current use of insulin Dyslipidemia Other and unspecified hyperlipidemia BMI 33.0-33.9,adult Breast cancer screening by mammogram Vaginal itching Pruritus of genital organs documented in this encounter Discontinued Medications Medication Sig Discontinue Reason Start Date End Da te ondansetron ODT (ZOFRAN-ODT) 4 mg disintegrating tablet DISSOLVE 1 TABLET BY MOUTH EVERY 6 HOURS NEEDED FOR NAUSEA AND VOMITING Therapy completed 01/28/2024 04/18/2025 benzonatate (TESSALON) 200 mg capsuleIndications:Acute cough Take 1 capsule (200 mg total) by mouth 3 (three) times a day as needed for cough Therapy completed 03/18/2025 04/18/2025 azithromycin (ZITHROMAX) 250 mg tabletIndications:Acute non-recurrent pansinusitis Take 2 tablets the first day, then 1 tablet daily for 4 days. Therapy completed 01/11/2025 04/18/2025 baclofen (LIORESAL) 10 mg tablet Take 1 tablet (10 mg total) by mouth 3 (three) times a day Reorder 10/19/2024 04/18/2025 documented as of this encounter Care Teams Truck Hop Relationship Specialty Start Date End Date Lance Lopez MD [address] [place] [id number] PCP - General Internal Medicine 09/07/24 Helena Leon MD Consulting Physician Pain Management 01/27/23 Mary Valencia Ud, MD Consulting Physician Surgery 04/01/23 Vijay Artis MD [address] [place] [id number] Consulting Physician Family Practice 09/07/24 documented as of this encounter
--- NOTE | ~2025-04-19 | CT_ITS ---
EXAMINATION: CT abdomen pelvis w con DATE: 04/19/2025 23:33 INDICATION: Diffuse abdominal pain TECHNIQUE: Computed tomography (CT) of the abdomen and pelvis was performed with 100 cc Omnipaque 350 intravenous contrast. The dose-length product was 571.27 mGy-cm. Automated exposure control and iterative reconstruction technique were employed. COMPARISON: CT dated 09/07/2023 FINDINGS: Lung bases are unremarkable. Heart size normal. No significant pleural or pericardial effusion. Status post cholecystectomy. The spleen, pancreas, adrenal glands and left kidney are unremarkable. Small right renal cyst versus angiomyolipoma measuring 6 mm. There is fluid with air-fluid levels throughout the small bowel and colon without dilation, suspicious for enterocolitis. Retroaortic left renal vein. No transition site in the bowel to suggest obstruction. No significant vascular abnormality. No lymphadenopathy. Mild osteoarthritis of the hips. 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 No free air or free fluid. IMPRESSION: 1. No acute abdominal abnormality. Reviewed, dictated and finalized at location O.
[2025-04-19 21:21] VITALS: BP 133/78; PULSE 71; RESP 16; TEMP 36.2; O2SAT 100
--- OUTSIDE RECORDS SUMMARY | 2025-04-19 22:00 | XMS_ITS | Encounter Summary ---
Author Organization [facility] Facility Care Team Providers Care Software Developer Name Role Phone Lance Lopez MD Primary Care Provider [phone] Jose Eduardo Chavarria MD Primary Care Provider + [phone] Lance Lopez MD Primary Care Provider [phone] Helena Leon MD Unavailable Mary Valencia Ud, MD Unavailable Lance Lopez MD Primary Care Provider [phone] Vijay Artis MD Unavailable Encounter Details Date Type Department Care Team (Latest Contact Info) Description 12/06/2017 Orders Only [facility] CLINCON[facility] ProviderMae MD [address] [place] [address] Social History Tobacco Use Types Packs/Day Years Used Date Smoking Tobacco: Never Assessed Comments Unknown Sex and Gender Information Value Date Recorded Sex Assigned at Not on file Legal Sex Female 2:04 AM GREEN 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 us Historical Provider Final Res ult documented in this encounter Visit Diagnoses Not on filedocumented in this encounter Additional Health Concerns Infection Onset Date Last Indicated Resolved Time COVID: Suspected 04/17/2024 04/17/2024 04/17/2024 3:45 PM CDT COVID: Suspected 03/18/2025 03/18/2025 03/18/2025 6:06 PM CDT documented as of this encounter Care Teams Software Developer Relationship Specialty Start Date End Date Lance Lopez MD [address] [facility] [place] [address] PCP - General 12/10/17 07/10/21 Jose Eduardo Chavarria MD [address] [place] [address] PCP - General 07/11/21 09/14/21 Lance Lopez MD [address] [facility] [place] [address] PCP - General Internal Medicine 09/15/21 09/06/24 Lance Lopez MD [address] [facility] [place] [address] PCP - General Internal Medicine 09/07/24 Helena Leon MD [address] [place] [address] Consulting Physician Pain Management 01/27/23 Mary Valencia Ud, MD [address] [place] [address] Consulting Physician Surgery 04/01/23 Vijay Artis MD [address] [facility] [place] [address] Consulting Physician Family Practice 09/07/24 documented as of this encounter
--- OUTSIDE RECORDS SUMMARY | 2025-04-19 22:00 | XMS_ITS | Encounter Summary ---
Author Organization [facility] Healthcare Address [address] [place] [address] Care Team Providers Care Production Material Handler Name Role Phone Helena Leon MD Unavailable Mary Valencia Ud, MD Unavailable Lance Lopez MD Primary Care Provider [phone] Vijay Artis MD Unavailable Encounter Details Date Type Department Care Team (Latest Contact Info) Description 03/15/2025 Results Follow-Up [facility] Medical Group Primary Care [address] [place] [address] Uma Escobar PA [address] [place] [address] Albumin Creatinine Ratio, Urine, Comprehensive metabolic panel, Hemoglobin A1c, Additional followed-up results: 2 Social History Tobacco Use Types Packs/Day Years Used Date Smoking Tobacco: Former Cigarettes 2 - 1991 Passive Smoke Exposure: Past Smokeless Tobacco: Former Alcohol Use Standard Drinks/Week Comments Never 0 (1 standard drink = 0.6 oz pur e alcohol) AUDIT-C Answer Date Recorded Q1: How often do you have a drink containing alcohol? Never 03/15/2025 Q2: How many drinks containi ng alcohol do you have on a typical day when you are drinking? Patient does not drink Q3: How often do you have si x or more drinks on one occasion? Never 03/15/2025 PHQ-2 Answer Date Recorded PHQ-2 Total Score (If total score is 3 or more points, staff should administer the PHQ-9) 0 10/24/2024 Personal Safety Answer Date Recorded Have you ever been in or are you currently in a harmful physical or emotional relationship or is someone making you feel afraid or unsafe? Denies 12/22/2023 Comments No Sex and Gender Information Value Date Recorded Sex Assigned at Not on file Legal Sex Female 2:04 AM DECISION SCIENCE ANALYST Gender Identity Not on file Sexual Orientation Not on file Occupation Industry Job Start Date Job End Date Retired Not on file Not on file Not on file documented as of this encounter Functional Status * AUDIT-C Score Answer Date of Assessment Author 0 03/15/2025 10:49 AM PIEROT Lucrecia Ye MA * Question Answer Date of Assessment Author Q1: How often do you have a drink containing alcohol? Never 03/15/2025 10:49 AM Colin Louise MA Q2: How many drinks containing alcohol do you have on a typical day when you are drinking? Patient does not drink 03/15/2025 10:49 AM Colin Louise MA Q3: How often do you have six or more drinks on one occasion? Never 03/15/2025 10:49 AM Colin Louise MA documented as of this encounter Plan of Treatment Not on file documented as of this encounter Visit Diagnoses Not on filedocumented in this encounter Additional Health Concerns Infection Onset Date Last Indicated Resolved Time COVID: Suspected 03/18/2025 03/18/2025 03/18/2025 6:06 PM CDT documented as of this encounter Care Teams Production Material Handler Relationship Specialty Start Date End Date Lance Lopez MD [address] [facility] [place] [address] PCP - General Internal Medicine 09/07/24 Helena Leon MD Consulting Physician Pain Management 01/27/23 Mary Valencia Ud, MD Consulting Physician Surgery 04/01/23 Vijay Artis MD [address] [facility] [address] [place] [address] [place] [address] Consulting Physician Family Practice 09/07/24 documented as of this encounter
--- OUTSIDE RECORDS SUMMARY | 2025-04-19 22:00 | XMS_ITS | Encounter Summary ---
Author Organization [facility] Facility Care Team Providers Care Ekg Manager Name Role Phone Lance Lopez MD Primary Care Provider [phone] Jose Eduardo Chavarria MD Primary Care Provider + [phone] Lance Lopez MD Primary Care Provider [phone] Helena Leon MD Unavailable Mary Valencia Ud, MD Unavailable Lance Lopez MD Primary Care Provider [phone] Vijay Artis MD Unavailable Encounter Details Date Type Department Care Team (Latest Contact Info) Description 04/26/2018 Orders Only [facility] CLINCONV ProviderMae MD [address] [place] [address] Social History Tobacco Use Types Packs/Day Years Used Date Smoking Tobacco: Never Assessed Comments Unknown Sex and Gender Information Value Date Recorded Sex Assigned at Not on file Legal Sex Female 2:04 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 us Historical Provider Final Res ult * PROCEDURE - RESULT (04/26/2018 12:00 AM CDT) Narrative 04/26/2018 12:00 AM CDT Ordered by an unspecified provider. us Historical Provider Final Res ult documented in this encounter Visit Diagnoses Not on filedocumented in this encounter Additional Health Concerns Infection Onset Date Last Indicated Resolved Time COVID: Suspected 04/17/2024 04/17/2024 04/17/2024 3:45 PM CDT COVID: Suspected 03/18/2025 03/18/2025 03/18/2025 6:06 PM CDT documented as of this encounter Care Teams Ekg Manager Relationship Specialty Start Date End Date Lance Lopez MD [address] [facility] [place] [address] PCP - General 12/10/17 07/10/21 Jose Eduardo Chavarria MD [address] [place] [address] PCP - General 07/11/21 09/14/21 Lance Lopez MD [address] [facility] [place] [address] PCP - General Internal Medicine 09/15/21 09/06/24 Lance Lopez MD [address] [facility] [place] [address] PCP - General Internal Medicine 09/07/24 Helena Leon MD [address] [facility] [place] [address] Consulting Physician Pain Management 01/27/23 Mary Valencia Ud, MD [address] [facility] [place] [address] Consulting Physician Surgery 04/01/23 Vijay Artis MD [address] [facility] [place] [address] Consulting Physician Family Practice 09/07/24 documented as of this encounter
--- OUTSIDE RECORDS SUMMARY | 2025-04-19 22:00 | XMS_ITS | Encounter Summary ---
Author Organization [facility] Address [address] [place] [address] Phone Care Team Providers Care Knit Goods Washer Name Role Phone Jose Eduardo Chavarria Primary Care Provider Pipe Wall MD Unavailable [phone] Encounter Details Date Type Department Care Team (Late st Contact Info) Description 11/20/2021 Telephone [facility] [address] [place] [address] Pipe Wall MD [address] [address] Social History Tobacco Use Types Packs/Day Years Used Date Smoking Tobacco: Former Cigarettes Q uit: 05/02/1993 Smokeless Tobacco: Never Alcohol Use Standard Drinks/Week Comments Not Currently 0 (1 standard drink = 0.6 oz pur e alcohol) AUDIT-C Answer Date Recorded Q1: How often do you have a drink containing alc ohol? Never 05/02/2020 Average Number of Drinks Not on file 020 Frequency of Binge Drinking Not on file 04/23 PHQ-2 Answer Date Recorded Total Score - Questions 1-9 0 04/25 Comments No Sex and Gender Information Value Date Recorded Sex Assigned at Not on file Legal Sex Female 11:11 AM CDT Gender Identity Not on file Sexual Orientation Not on file documented as of this encounter Miscellaneous Notes * Telephone Encounter - Main, Estefanía L. - 11/20/2021 4:21 PM CDT Called and rescheduled pt for 12/12. documented in this encounter Plan of Treatment Not on file documented as of this encounter Visit Diagnoses Not on filedocumented in this encounter Additional Health Concerns Assessment Noted Time PHQ-9 Depression Total Score: 0 05/22/20 21 2:27 PM CDT documented as of this encounter Care Teams Knit Goods Washer Relationship Specialty Start Date End Date Jose Eduardo Chavarria [address] [facility] [address] PCP - General Family Medicine 04/17/20 Pipe Wall MD [address] [place] [address] Consulting Physician Oncology 05/21/21 documented as of this encounter
--- OUTSIDE RECORDS SUMMARY | 2025-04-19 22:00 | XMS_ITS | Clinical Summary ---
Author Organization [facility] Address [address] [place] [address] Phone Care Team Providers Care Instrument Processing Tech Name Role Phone Deon Jose Eduardo Primary Care Provider [phone] Pipe Wall MD Unavailable [phone] Allergies Active Allergy Reactions Criticality Noted Date Comments Acetaminophen-Codeine Nausea 05/22/2013 Aspirin Nausea 12/17/2018 Codeine Nausea 12/17/2018 Propoxyphene Nausea,Unknown 05/22/2013 Medications diphenoxylate-a tropine (LOMOTIL) 2.5-0.025 MG Tablet 10/11/2019 Active doxazosin (CARDURA) 2 MG Tablet TAKE ONE TABLET BY MOUTH ONCE DAILY 03/17/2019 Active hydroCHLOROthia zide 25 MG Tablet Take 25 mg by mouth daily. 04/15/2020 Active losartan (COZAAR) 100 MG Tablet 04/15/2020 Active metoprolol Succinate (TOPROL-XL) 50 MG TABLET SR 24 HR Take 50 mg by mouth daily. 04/15/2020 Active spironolactone (ALDACTONE) 25 MG Tablet Take 25 mg by mouth daily. 02/24/2020 Active omeprazole (PriLOSEC) 20 MG CAPSULE DELAYED RELEASE TAKE 1 CAPSULE BY MOUTH ONCE DAILY BEFORE A MEAL 04/12/2020 Active acetaminophen (Tylenol) 325 MG Tablet Take 325 mg by mouth every 4 hours as needed. Active ketoconazole (NIZORAL) 2 % Cream APPLY TO AFFECTED AREA TWICE A DAY 02/24/2020 Active ergocalciferol (VITAMIN D) 84946 UNIT Capsule TAKE 1 CAPSULE BY MOUTH ONE TIME PER WEEK 05/20/2020 Active meloxicam (MOBIC) 7.5 MG Tablet 06/27/2020 Active ammonium lactate (LAC-HYDRIN) 12 % Lotion 06/27/2020 Active metFORMIN (GLUCOPHAGE) 500 MG Tablet Take 1,000 mg by mouth nightly. Active Active Problems Problem Noted Date Diagnosed Date Elevated ferritin 05/02/2020 Lichen sclerosus 02/21/2018 Primary osteoarthritis of left knee 12/15/2016 DM type 2 (diabetes mellitus, type 2) 06/23/2016 HTN (hypertension) 03/23/2016 Osteoarthrosis 03/23/2016 Vaginitis 03/23/2016 Benign essential HTN 09/10/2015 Benign paroxysmal vertigo 09/10/2015 Family History Medical History Relation Name Comments Cancer Brother Stroke Brother Heart Attack Sister High Cholesterol Sister Relation Name Status Comments Brother Sister Social History Tobacco Use Types Packs/Day Years [...] on file Sexual Orientation Not on file Last Filed Vital Signs Vital Sign Reading Time Taken Comments Blood Pressure 120/88 05/22/2021 2:22 PM CDT Pulse 77 05/22/2021 2:22 PM CDT Temperature 36 C (96.8 F) 05/22/2021 2:22 PM CDT Respiratory Rate 18 05/22/2021 2:22 PM CDT Oxygen Saturation 98% 05/22/2021 2:22 PM CDT Inhaled Oxygen Concentration - - Weight 101.4 kg (223 lb 9.6 oz) 05/22/2021 2:22 PM CDT Height 161.3 cm (5' 3.5) 05/22/2021 2:22 PM CDT Body Mass Index 38.99 05/22/2021 2:22 PM CDT Plan of Treatment Health Maintenance Due Date Last Done Comments Diabetes: Eye Exam 1954 Diabetes: Foot Exam 1954 Diabetes: Hemoglobin A1c 1954 Hepatitis C Virus (HCV) Screening 1954 TdaP Immunization 1954 Diabetes: Nephropathy Screening 1972 Pneumococcal Immunization (5 0+ years) (1 of 2 - PCV) 1973 Cologuard 1999 Colonoscopy 1999 Colorectal Cancer Screening 1999 Immunochemical Fecal Occult Blood 1999 Zoster Immunization (1 of 2) 2004 SARS-COV-2 Immunization (2 - season) 2024 11/18/2020 Influenza Immunization (#1) 2025 09/19/2018 Respiratory Syncytial Virus (RSV) Immunization (Adult) (1 - 1-dose 75+ series) 2029 Hepatitis B Immunization Aged Out No longer eligible based on patient's age to complete this topic Human Papillomavirus (HPV) Immunization Aged Out No longer eligible b ased on patient's age to complete this topic Meningococcal Immunization (ACWY) Aged Out No longer eligible based on patient's age to complete this topic Rotavirus Immunization Aged Out No lo nger eligible based on patient's age to complete this topic Insurance MEDICARE C [employer] MEDICARE C [employer] Care Teams Instrument Processing Tech Relationship Specialty Start Date End Date Jose Eduardo Chavarria [address] [place] [address] PCP - General Family Medicine 04/17/20 Pipe Wall MD [address] [place] [id number] Consulting Physician Oncology 05/21/21
--- OUTSIDE RECORDS SUMMARY | 2025-04-19 22:00 | XMS_ITS | Encounter Summary ---
Author Organization [facility] Healthcare Address [address] [place] [address] Care Team Providers Care Business Team Leader Name Role Phone Helena Leon MD Unavailable Mary Valencia Ud, MD Unavailable Lance Lopez MD Primary Care Provider [phone] Vijay Artis MD Unavailable Encounter Details Date Type Department Care Team (Late st Contact Info) Description 03/20/2025 Results Follow-Up [facility] Medical Group Convenient Care at [address] [address] Silke Coffman PA [address] [place] [address] [address] [place] [address] Throat culture Throat Social History Tobacco Use Types Packs/Day Years Used Date Smoking Tobacco: Former Cigarettes 2 10 2 - 1991 Passive Smoke Exposure: Past [...] on file Legal Sex Female 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 Gender Identity Not on file Sexual Orientation Not on file Occupation Industry Job Start Date Job End Date Retired Not on file Not on file Not on file documented as of this encounter Plan of Treatment Not on file documented as of this encounter Visit Diagnoses Not on filedocumented in this encounter Care Teams Business Team Leader Relationship Specialty Start Date End Date Lance Lopez MD [address] [facility] [address] [place] [address] PCP - General Internal Medicine 09/07/24 Helena Leon MD Consulting Physician Pain Management 01/27/23 Mary Valencia Ud, MD Consulting Physician Surgery 04/01/23 Vijay Artis MD [address] [facility] [address] [address] [place] [address] Consulting Physician Family Practice 09/07/24 documented as of this encounter
--- OUTSIDE RECORDS SUMMARY | 2025-04-19 22:00 | XMS_ITS | Clinical Summary ---
Author Organization [facility] Address [address] [place] [address] Care Team Providers Care Entry Level Accountant Name Role Phone Jose Eduardo Chavarria MD Primary Care Provider [phone] Source Comments [facility],non-owned Affiliates and Associated Physician Practices is amultiple site organization consisting of ambulatory clinics and hospital sitesin [place], [place], [place] and [place]. This disclosure is being madepursuant to the Care Everywhere program and may not contain all information available regarding this patient. Last updated 18.[employer] [facility] Allergies Active Allergy Reactions Criticality Noted Date Comments Aspirin Unknown 12/17/2018 Codeine Unknown 12/17/2018 Propoxyphene Nausea and/or Vomiting 05/22/2013 Acetaminophen-Codeine GI Discomfort 05/22/2013 Medications * Be aware that medications may not be up to date on this document. Alwaysverify current medications with the patient. cyclobenzaprine (FLEXERIL) 10 MG tablet Take 1 Tab by mouth 3 times daily as needed for Muscle Spasms. 15 Tab 0 4 Active Additional Information Patient not taking.Reported on 02/05/2015 meclizine (ANTIVERT) 25 MG tablet Take 1 Tab by mouth 3 times daily as needed for Dizziness 30 Tab 0 5 Active Additional Information Patient not taking.Reported on 09/10/2015 metoprolol tartrate (LOPRESSOR) 50 MG tablet Take 1 Tab by mouth once daily 90 Tab 3 6 Active losartan-hydroc hlorothiazide (HYZAAR) 100-25 MG tablet Take 1 Tab by mouth once daily 90 Tab 3 6 Active benzonatate (TESSALON) 100 MG capsule benzonatate 100 mg capsule Active diphenoxylate-a tropine (LOMOTIL) 2.5-0.025 MG tablet 0 Active acetaminophen (TYLENOL) 325 MG tablet Take 325 mg by mouth Active omeprazole (PRILOSEC) 20 MG capsule TAKE 1 CAPSULE BY MOUTH ONCE DAILY BEFORE A MEAL 0 Active doxazosin (CARDURA) 2 MG tablet TAKE ONE TABLET BY MOUTH ONCE DAILY 9 Active ketoconazole (NIZORAL) 2 % cream APPLY TO AFFECTED AREA TWICE A DAY 0 Active dicyclomine (Bentyl) 10 MG capsule Take 1 (one) capsule by mouth 4 times daily 30 capsule 4 Active ondansetron, disintegrating, (Zofran ODT) 4 MG tablet Take 1 (one) tablet by mouth every 6 hours as needed for Nausea/Vomiting Allow tablet to dissolve on the tongue 10 tablet 4 Active Active Problems Problem Noted Date Diagnosed Date DM type 2 (diabetes mellitus, type 2) 06/23/2016 Chronic dermatitis 03/23/2016 Osteoarthrosis 03/23/2016 Onychomycosis 09/10/2015 Benign essential HTN 09/10/2015 Benign paroxysmal vertigo 09/10/2015 Immunizations Immunization Administration Dates Next Due TDAP (7yrs+) 05/22/2013 Family History Medical History Relation Name Comments Cancer - Other Mother possible fer [place]? Relation Name Status Comments Mother Social History Tobacco Use Types Packs/Day Years Used Date Smoking Tobacco: Former Cigarettes 2 4 0 08/23/1990 - 08/23/1994 Smokeless Tobacco: Never Tobacco Cessation:Counseling Given: No Alcohol Use Standard Drinks/Week Comments No 0 (1 standard drink = 0.6 oz pur e alcohol) Comments No Sex and Gender Information Value Date Recorded Sex Assigned at Not on file Legal Sex Female 6:35 AM [employer] Gender Identity Not on file Sexual Orientation Not on file Last Filed Vital Signs Vital Sign Reading Time Taken Comments Blood Pressure 134/89 01/28/2024 12:49 AM CDT Pulse 54 01/28/2024 12:49 AM CDT Temperature 36.6 C (97.9 F) 01/28/2024 12:49 AM CDT Respiratory Rate 16 01/28/2024 12:49 AM CDT Oxygen Saturation 100% 01/28/2024 12:49 AM CDT Inhaled Oxygen Concentration - - Weight 104.3 kg (230 lb) 01/27/2024 9:31 PM CDT Height 157.5 cm (5' 2) 01/27/2024 9:31 PM CDT Body Mass Index 42.07 01/27/2024 9:31 PM CDT Plan of Treatment Health Maintenance Due Date Last Done Comments COLOGUARD (AGES 45-75) - COLON CA SCREENING 1955 CT COLONOGRAPHY - COLON CA SCREENING 1955 FIT - COLON CA SCREENING 1955 FLEX SIG - COLON CA SCREENING 1955 HEPATITIS C SCREENING 10/13/1972 PNEUMOCOCCAL VACCINE 50+ (1 of 2 - PCV) 1973 DIABETES-STATIN 1994 ZOSTER VACCINE (1 of 2) 2004 Respiratory Syncytial Virus (RSV) Vaccine Pt: or over 60 yrs (1 - Risk 60-74 years 1-dose series) 2014 DIABETES RETINOPATHY SCREENING 05/23/2020 DIABETES-FOOT EXAM WITH MONOFILAMENT 05/23/2020 DTAP/TDAP/TD VACCINES (2 - Td or Tdap) 05/22/2023 05/22/2013 COVID-19 VACCINE (2 - season) 2024 09/05/2022 DIABETES-HGB A1C 05/18/2024 11/16/2023 DEPRESSION SCREENING 08/23/2024 DIABETES - URINE PROTEIN SCREENING 08/23/2024 MEDICARE AWV CALENDAR YEAR 2024 DIABETES-SERUM CREATININE 01/26/20252023, 05/20/2023, 05/20/2023, Additional history exists INFLUENZA VACCINE (#1) 2025 09/19/2018 MAMMOGRAM 01/25/2026 01/26/2024, 12/2023, 11/24/2022, Additional history exists COLON MONITORING 12/21/2033 12/22/2023 COLONOSCOPY - COLON CA SCREENING 12/21/2033 12/22/2023 Colorectal Cancer Screening 12/21/2033 BONE DENSITY TESTING Completed 01/26/2024 HEPATITIS B VACCINE Aged Out No longe r eligible based on patient's age to complete this topic HIB VACCINE Aged Out No longer eligi ble based on patient's age to complete this topic HPV VACCINE Aged Out No longer eligi ble based on patient's age to complete this topic MENINGOCOCCAL (Group B) VACCINE SHARED DECISION-MAKING Aged Out No longer eligible based on patient's age to complete this topic MENINGOCOCCAL GROUPS A/C/Y/W VACCINE Aged Out No longer eligible based on patient's age to complete this topic Goals Goal Patient Goal Type Associated Problems Recent Progress Patient-Stated? Author Blood Pressure < 140/90 Blood Pressure 134/89(2023 12:49 AM CDT) Britt Miguel Mobility General No change(2020 12:01 PM CDT) No Bre Graves RN Note: Expected end date:08/23/2019 The goal is to maintain or improve your mobility at the optimum level for you. Interventions: Procedures Procedure Name Priority Date/Time Associated Diagnosis Comments COMPREHENSIVE METABOLIC PANEL STAT 01/27/2024 10:45 PM CDT from Last 3 Months or Most Recently Relevant to Health Maintenance Results * (ABNORMAL) COMPREHENSIVE METABOLIC PANEL (01/27/2024 10:45 PM CDT) Glucose 95 70 - 105 mg/dL 01/27/2024 11:08 PM CDT [facility] Sodium 136 136 - 145 mmol/L 01/27/2024 11:08 PM CDT [facility] Potassium 3.5 3.5 - 5.1 mmol/L 01/27/2024 11:08 PM CDT [facility] Chloride 101 98 - 107 mmol/L 01/27/2024 11:08 PM CDT [facility] CO2 26 22 - 29 mmol/L 01/27/2024 11:08 PM CDT [facility] Calcium 9.5 8.4 - 10.4 mg/dL 01/27/2024 11:08 PM CDT [facility] Anion Gap 9 6 - 16 mmol/L 01/27/2024 11:08 PM CDT [facility] BUN 14 7 - 26 mg/dL 01/27/2024 11:08 PM CDT [facility] Creatinine 1.20(H) 0.57 - 1.11 mg/dL 01/27/2024 11:08 PM CDT [facility] Alkaline Phosphatase 124 40 - 150 U/L 01/27/2024 11:08 PM CDT [facility] ALT 55 0 - 55 U/L 01/27/2024 11:08 PM CDT [facility] AST 38(H) 5 - 34 U/L 01/27/2024 11:08 PM CDT [facility] Protein Total 7.2 6.4 - 8.3 gm/dL 01/27/2024 11:08 PM CDT [facility] Albumin 3.8 3.4 - 5.0 gm/dL 01/27/2024 11:08 PM CDT [facility] Bilirubin Total 0.5 0.2 - 1.2 mg/dL 01/27/2024 11:08 PM CDT [facility] eGFR by CKD-EPI 49(L) >=90 mL/min/1.7 3 m2 01/27/2024 11:08 PM CDT [facility] Blood BLOOD SPECIMEN / Unknown Venipuncture / Unknown 01/27/2024 10:45 PM CDT 01/27/2024 10:52 PM CDT [facility] - CHEMISTRY ORDERABLES Final Result Performing Organization Address City/State/[facility] Co de Phone Number [facility] [address] [place] [address] from Last 3 Months or Most Recently Relevant to Health Maintenance Insurance MEDICARE MEDICAID - [place] WELLCARE [facility] WELLCARE MEDICAID - OUT OF STATE * Guarantor: PIERRE CLEVELAND Account Type Relation to Patient Date of Phone Billing Address Personal/Family [address] [facility] [place] [id number] [place] [address] Care Teams Entry Level Accountant Relationship Specialty Start Date End Date Jose Eduardo Chavarria MD PCP - General 06/13/19
--- OUTSIDE RECORDS SUMMARY | 2025-04-19 22:00 | XMS_ITS | Clinical Summary ---
Author Organization [place] [id number] [facility] Address [address] [place] [address] Care Team Providers Care Slipcover Cutter Name Role Phone Helena Leon MD Unavailable Mary Valencia Ud, MD Unavailable Lance Lopez MD Primary Care Provider [phone] Vijay Artis MD Unavailable Allergies Active Allergy Reactions Criticality Noted Date Comments Acetaminophen-Codeine Nausea & Vomiting, Nausea only Low 05/22/2013 Aspirin Unknown 12/17/2018 Codeine Phosphate Unknown 12/17/2018 Doravirine Nausea only Low 01/15/2023 Gabapentin Hallucinations Medium 11/15/2023 Propoxyphene Unknown 12/17/2018 [id number]-Mrg-Ftt Reductase Inhibitors Muscle pain Medium 01/08/2022 Medications clobetasol (TEMOVATE) 0.05 % cream Apply 0.05 % topically 4 (four) times a day as needed 12/21/19 18 Active acetaminophen (TYLENOL) 325 mg tablet Take 1 tablet (325 mg total) by mouth every 4 (four) hours as needed Active blood-glucose meter miscIndications:Ty pe 2 diabetes mellitus with other specified complication, unspecified whether terminal make up operator insulin use (HCC) 1 kit daily One Touch Verio Glucometer 1 each 11/07/19 22 Active OneTouch Verio Flex meter misc USE DIRECTED 1 each 1 12/12/19 22 Active meclizine (ANTIVERT) 25 mg tablet Take 1 tablet (25 mg total) by mouth 3 (three) times a day as needed for dizziness 30 tablet 3 01/23/20 22 Active lancets miscIndications:Ty pe 2 diabetes mellitus without complication, without long-term current use of insulin (HCC) Use 1 twice daily to check blood sugar 200 each 2 05/06/20 22 Active OneTouch Delica Plus Lancet 33 gauge misc USE 1 TWICE DAILY TO CHECK BLOOD SUGAR 05/06/20 22 Active colestipoL (COLESTID) 1 gram tablet TAKE 1 TABLET BY MOUTH TWICE A DAY SWALLOW WHOLE WITH LIQUID. DO NOT CRUSH/CHEW/DIV ELVIRA 180 tablet 08/23/19 23 Active diclofenac sodium (VOLTAREN) 1 % gel Apply 2 g topically 3 (three) times a day 100 g 3 09/21/19 24 Active ammonium lactate (LAC-HYDRIN) 12 % lotionIndications: Dry skin Apply topically as needed for dry skin 225 g 1 09/28/19 24 Active ketoconazole (NIZORAL) 2 % cream Apply topically 2 (two) times a day 60 g 1 11/16/19 24 Active multivitamin tabletIndications: Vitamin Deficiency Prevention Take 1 tablet by mouth Active coenzyme Q10 10 mg capsule Take 1 capsule (10 mg total) by mouth daily Active meloxicam (MOBIC) 7.5 mg tablet TAKE 1 TABLET BY MOUTH EVERY DAY 30 tablet 1 01/31/20 24 Active dicyclomine (BENTYL) 10 mg capsule Take 1 capsule (10 mg total) by mouth 4 (four) times a day 01/28/20 24 Active OneTouch Verio test strips strip USE 1 STRIP TWICE DAILY TO CHECK BLOOD SUGAR 200 strip 1 08/14/20 24 Active valACYclovir (VALTREX) 1 gram tablet Take 2 tabs (2000 mg) 2 times a days for 1 day. 14 tablet 10/19/19 25 Active spironolactone (ALDACTONE) 25 mg tablet TAKE 1 TABLET BY MOUTH EVERY DAY 90 tablet 1 12/13/19 25 Active metoprolol XL (TOPROL-XL) 50 mg extended release tablet TAKE 1 TABLET BY MOUTH EVERY DAY 100 tablet 1 01/14/20 25 Active lidocaine (LIDODERM) 5 % Place 1 patch on the skin daily for 12 hours Apply to painful area 12 hours per day, remove for 12 hours. 30 patch 3 01/19/20 25 Active diphenoxylate-atro pine (LOMOTIL) 2.5-0.025 mg per tablet TAKE 1 TABLET BY MOUTH FOUR TIMES A DAY NEEDED FOR DIARRHEA 30 tablet 2 01/19/20 25 Active omeprazole (PriLOSEC) 40 mg capsuleIndications :Chronic gastritis without bleeding, unspecified gastritis type TAKE 1 CAPSULE (40 MG TOTAL) BY MOUTH DAILY. 90 capsule 1 01/30/20 25 026 Active famotidine (PEPCID) 20 mg tabletIndications: Chronic gastritis without bleeding, unspecified gastritis type TAKE 1 TABLET BY MOUTH EVERY DAY 90 tablet 1 01/30/20 25 Active Farxiga 5 mg tabletIndications: Type 2 diabetes mellitus without complication, without long-term current use of insulin (HCC) TAKE 1 TABLET (5 MG TOTAL) BY MOUTH DAILY. 90 tablet 1 01/30/20 25 Active ezetimibe (ZETIA) 10 mg tablet TAKE 1 TABLET BY MOUTH EVERY DAY 100 tablet 1 02/10/20 25 Active losartan (COZAAR) 100 mg tablet TAKE 1 TABLET BY MOUTH EVERY DAY 90 tablet 02/17/20 25 Active topiramate (TOPAMAX) 25 mg tabletIndications: Class 1 obesity due to excess calories with serious comorbidity and body mass index (BMI) of 32.0 to 32.9 in adult Take 1 tablet (25 mg total) by mouth 2 (two) times a day 180 tablet 1 03/15/20 25 Active baclofen (LIORESAL) 10 mg tablet Take 1 tablet (10 mg total) by mouth 3 (three) times a day 30 tablet 04/18/20 25 025 Active amoxicillin (AMOXIL) 500 mg tablet/capsule Take 1 tablet/capsule (500 mg total) by mouth 3 (three) times a day for 10 days 21 tablet/caps ule 04/18/20 25 025 Active ondansetron ODT (ZOFRAN-ODT) 4 mg disintegrating tablet DISSOLVE 1 TABLET BY MOUTH EVERY 6 HOURS NEEDED FOR NAUSEA AND VOMITING 01/28/20 24 025 Discontinu ed(Therapy completed) baclofen (LIORESAL) 10 mg tablet Take 1 tablet (10 mg total) by mouth 3 (three) times a day 30 tablet 10/19/19 25 025 Discontinu ed(Reorder ) azithromycin (ZITHROMAX) 250 mg tabletIndications: Acute non-recurrent pansinusitis Take 2 tablets the first day, then 1 tablet daily for 4 days. 6 tablet 01/12/20 25 025 Discontinu ed(Therapy completed) benzonatate (TESSALON) 200 mg capsuleIndications :Acute cough Take 1 capsule (200 mg total) by mouth 3 (three) times a day as needed for cough 30 capsule 03/18/20 25 025 Discontinu ed(Therapy completed) fluconazole (DIFLUCAN) 150 mg tablet Take 1 tablet (150 mg total) by mouth once for 1 dose Take one tab now. Repeat in 7 days if symptoms persist. 2 tablet 04/18/20 25 025 Active Problems Problem Noted Date Diagnosed Date Class 1 obesity due to exces s calories with serious comorbidity and body mass index (BMI) of 32.0 to 32.9 in adult 12/07/2024 Assessment & Plan (03/15/2025 11:01 AM CDT): Chronic. Uncontrolled. Goal: 150lb cont. Topiramate 25mg BID. To consider restart zoempic in the future. Assessment & Plan (12/07/2024 11:00 AM CDT): Chronic. Uncontrolled. Goal: 150lb cont. Topiramate 25mg BID. To consider restart zoempic in the future. Left arm pain 10/19/2024 Assessment & Plan (10/19/2024 2:44 PM OUTSIDE MACHINIST APPRENTICE): Patient with left arm pain after shoveling snow recently. She has mild tenderness over the biceps and triceps muscles. Start her on baclofen 10 mg t.i.d. p.r.n. side effects were explained. Advised not to leave the house after she takes the medication. Sore throat 04/17/2024 Assessment & Plan (04/17/2024 4:45 PM CDT): Patient with sore throat for 3 days. Exam is normal. COVID test is negative. Advised to take Claritin or Aliya as needed. Scalp contusion 12/24/2023 Assessment & Plan (12/24/2023 12:46 PM CDT): Patient with small right frontal scalp contusion. She is currently asymptomatic. Vasovagal syncope 12/24/2023 Assessment & Plan (12/24/2023 12:46 PM CDT): Patient with syncopal episode most likely secondary to dehydration and vasovagal. Workup in the emergency room was essentially unremarkable. Patient is currently is asymptomatic and feels well. No further intervention is needed Obstructive sleep apnea 10/26/2023 Assessment & Plan (04/18/2025 8:02 AM CDT): Managed by the sleep specialist. Assessment & Plan (01/18/2025 7:51 AM CDT): Managed by the sleep specialist. Assessment & Plan (10/19/2024 7:55 AM OUTSIDE MACHINIST APPRENTICE): Managed by the sleep specialist. Assessment & Plan (07/19/2024 8:00 AM OUTSIDE MACHINIST APPRENTICE): Follows with sleep specialist Assessment & Plan (04/17/2024 8:10 AM CDT): Follows with sleep specialist Assessment & Plan (01/20/2024 4:43 PM CDT): Patient complains of buzzing in her head and vision issues after using the CPAP machine. She will discuss these symptoms with the sleep specialist with her next appointment in about 10 days Cigarette nicotine dependence in remission 10/25 Restless legs 10/26/2023 Periodic limb movement 10/26/2023 Vaginal itching 09/23/2023 Assessment & Plan (04/18/2025 4:42 PM CDT): Will try Diflucan 150 mg and repeat in 1 week if needed and patient will call for persistent symptoms Assessment & Plan (09/23/2023 3:53 PM OUTSIDE MACHINIST APPRENTICE): New sexual partner. Needs STD screen and vaginitis panel. Reports irritation following sex. Discussed using a water based lubricant. Hordeolum externum of left upper eyelid 09/21/19 24 Assessment & Plan (09/21/2023 3:13 PM OUTSIDE MACHINIST APPRENTICE): Patient with stye in the left upper eyelid. Will start her on tobramycin eye ointment 3 times daily for 7 days. Call for persistent symptoms Apnea 08/26/2023 Hypersomnia 08/26/2023 Psychophysiological insomnia 08/26/2023 Abnormal weight gain 07/12/2023 History of colon polyps 06/25/2023 Screening for colon cancer 06/25/2023 Assessment & Plan (06/25/2023 11:54 AM CDT): Per PCP chart pt is due for colonoscopy April of 2023, no records of colonscopy in her chart tho Colonoscopy in April 2018 showed 3 polyps and repeat in 3 years per PCP Last done at Dr. Lebron possibly per pt description of location. Records r/q -schedule colonoscopy -The risks (risks of bleeding, infection, perforation requiring surgery, missed polyps/cancer, dental injury, aspiration pneumonia, anesthesia complications such as drug reaction and cardiopulmonary complications including rare chance of ), benefits, and alternatives of the planned procedure were explained to the patient who understands and consents to having procedure done. Chronic epigastric pain 06/25/2023 Assessment & Plan (06/25/2023 11:23 AM CDT): Patient has had chronic epigastric pain. She was recently seen at [facility] where they did a CT which was unremarkable per well-developed [facility]'s Emergency Department. They did not do a CT when she was in the emergency room at the end of April because of patient's verbal statement from her [facility] hospital record. The most recent one I have on file is from 11/05/22 which was done for abdominal pain. IMPRESSION: 1. Fluid-filled nondilated small bowel loops that may represent enteritis. No evidence for bowel obstruction. -05/21/2023 patient was put on omeprazole 40 mg daily and has been feeling better -schedule EGD -avoid NSAIDs and recommended d/c meloxicam The risks (risks of bleeding, infection, perforation requiring surgery, missed polyps/cancer, dental injury, aspiration pneumonia, anesthesia complications such as drug reaction and cardiopulmonary complications including rare chance of ), benefits, and alternatives of the planned procedure were explained to the patient who understands and consents to having procedure done. BMI 34.0-34.9,adult 05/25/2023 Assessment & Plan (05/25/2023 12:55 PM CDT): Discussed the patient's BMI. The BMI is above average. BMI management plan is completed. BMI Follow-up includes: nutrition counseling, exercise counseling and education provided. Chronic gastritis without bleeding 05/25/2023 Assessment & Plan (04/18/2025 8:01 AM CDT): Patient is maintained on Prilosec and Pepcid. Follow-up with the remote pilot operator Assessment & Plan (09/21/2023 1:05 PM OUTSIDE MACHINIST APPRENTICE): Patient is maintained on Prilosec and Pepcid. Follow-up with the remote pilot operator Assessment & Plan (05/25/2023 12:57 PM CDT): Change omeprazole dosing to 40 mg daily, add Pepcid 20 mg at night. Patient is to follow up with GI. Candidiasis of skin 05/25/2023 Assessment & Plan (05/25/2023 12:58 PM CDT): Yeast present opposing skin folds. Nystatin powder ordered patient to apply topically up to 4 times a day. Return to office if symptoms do not improve Acute cough 07/07/2022 Assessment & Plan (07/07/2022 8:46 AM OUTSIDE MACHINIST APPRENTICE): Patient has cough for the last 10 days. No improvement with [id number] medications. Will try her on Robitussin AC 5 cc q.i.d. p.r.n.. Patient had history of nausea with codeine. She will call if she has bad reaction to the medication. She will call for persistent symptoms. 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 Provider to consider billing statin myopathy (G72.0) with assessment/plan in note on annual basis to remove patient from [facility] Statin Gap report. Assessment & Plan (04/18/2025 4:43 PM CDT): Patient has muscle ache with statins Assessment & Plan (01/18/2025 7:51 AM CDT): Patient has muscle ache with statins Assessment & Plan (10/19/2024 7:55 AM OUTSIDE MACHINIST APPRENTICE): Patient has muscle ache with statins Assessment & Plan (07/19/2024 3:23 PM OUTSIDE MACHINIST APPRENTICE): Patient has muscle ache with statins Assessment & Plan (03/22/2023 4:57 PM CDT): Patient has muscle ache with statins Assessment & Plan (09/15/2022 12:34 PM OUTSIDE MACHINIST APPRENTICE): Patient developed muscle ache and weakness with statins Assessment & Plan (05/21/2022 3:45 PM CDT): Patient has muscle ache with statins Bulging lumbar disc 05/06/2022 Assessment & Plan (01/18/2025 7:51 AM CDT): Patient had epidural injections. She said her symptoms are under control. Patient feels much better than before. She denied any radiation of the pain down her legs. There is no numbness or weakness in the lower extremities. Assessment & Plan (01/20/2024 4:45 PM CDT): Patient had epidural injections. She said her symptoms are under control. Patient feels much better than before. She denied any radiation of the pain down her legs. There is no numbness or weakness in the lower extremities. Assessment & Plan (10/19/2023 2:59 PM OUTSIDE MACHINIST APPRENTICE): Patient complains of recurrent severe back pain secondary to bulging disc. She is under the care of pain management. She has an appointment to see the pain specialist. Patient is not interested in surgical referral at this point. She will let us know if she changes her mind Assessment & Plan (06/21/2023 5:21 PM CDT): Patient improved significantly with epidural injections. Assessment & Plan (03/22/2023 4:56 PM CDT): Patient was seen by the neurosurgeon. Patient is followed by the pain management. She received epidural injections. She said the pain improved significantly. Patient has no focal deficit. Assessment & Plan (12/09/2022 5:24 PM CDT): Patient has follow-up with the neurosurgeon Assessment & Plan (11/11/2022 3:41 PM CDT): Patient with large bulging lumbar disc. Patient is symptomatic. Will make a referral to see a neurosurgeon for further evaluation. She was advised to avoid lifting or carrying or pushing. Patient to go to the emergency room she developed weakness in her legs or if she has urine or stool incontinence. Gastroenteritis 04/10/2022 Assessment & Plan (11/11/2022 3:42 PM CDT): Patient with enteritis. Her symptoms improved with antibiotics. Patient is currently asymptomatic. Assessment & Plan (04/10/2022 12:02 PM CDT): Resolved. Advised to increase fluid intake. Avoid food that triggers symptoms like these. Open toe wound 04/10/2022 Assessment & Plan (04/10/2022 12:02 PM CDT): Patient with small wound around the right big toe area. She will be started on Keflex 500 mg 3 times daily for 7 days and she has follow-up with the fittings tightener Yeast infection 01/08/2022 Assessment & Plan (11/16/2023 10:56 AM CDT): Patient with yeast infection of the right foot. Will start her on Nizoral cream twice daily. Advised to keep the area dry and clean. Assessment & Plan (09/23/2023 3:56 PM OUTSIDE MACHINIST APPRENTICE): Patient with yeast under pannus. We will treat with nystatin powder. Assessment & Plan (01/08/2022 3:11 PM CDT): Patient with yeast infection after antibiotics. Will start her on Diflucan 150 mg and repeat in 1 week if needed Skin lesion 01/08/2022 Assessment & Plan (08/09/2023 4:01 PM OUTSIDE MACHINIST APPRENTICE): Patient with dark skin lesion with surrounding erythema on the dorsal aspect of the right foot just above the big toe. She has thick dark discoloration of the toenails. The patient most likely has yeast infection. She tried triamcinolone and triple antibiotics with no improvement. I told her to stop using these products. Will start her on Diflucan 100 mg daily for 10 days. Patient to call for persistent symptoms. Assessment & Plan (01/08/2022 3:13 PM CDT): Skin rash could be secondary to insect bites. We will try TMC cream twice daily for few days. Call for persistent symptoms Weakness 11/05/2021 Assessment & Plan (01/08/2022 3:10 PM CDT): Resolved Assessment & Plan (11/05/2021 5:11 PM CDT): Patient complains of fatigue and weakness for the last 2 weeks. Will obtain blood work. Will order Accu-Chek machine. Advised to check her sugar on regular basis and call us with readings. The patient was advised to watch her diet again. She understands the importance of that. Will make further recommendations after the blood test and she will call for persistent symptoms. Dyslipidemia 10/09/2021 Assessment & Plan (04/18/2025 8:01 AM CDT): Patient is maintained on Zetia. She could not take statins because of muscle ache and weakness. Cholesterol improved. Continue low-fat diet. Encouraged more weight loss. Assessment & Plan (01/18/2025 7:51 AM CDT): Patient is maintained on Zetia. She could not take statins because of muscle ache and weakness. Cholesterol improved. Continue low-fat diet. Encouraged more weight loss. Assessment & Plan (10/19/2024 7:54 AM OUTSIDE MACHINIST APPRENTICE): Patient is maintained on Zetia. She could not take statins because of muscle ache and weakness. Cholesterol improved. Continue low-fat diet. Encouraged more weight loss. Assessment & Plan (07/19/2024 8:00 AM OUTSIDE MACHINIST APPRENTICE): Patient is maintained on Zetia. She could not take statins because of muscle ache and weakness. Cholesterol improved. Continue low-fat diet. Encouraged more weight loss. Assessment & Plan (04/17/2024 8:09 AM CDT): Patient is maintained on Zetia. She could not take statins because of muscle ache and weakness. Cholesterol improved. Continue low-fat diet. Encouraged more weight loss. Assessment & Plan (01/20/2024 4:44 PM CDT): Patient is maintained on Zetia. She could not take statins because of muscle ache and weakness. Cholesterol improved. Continue low-fat diet. Encouraged more weight loss. Assessment & Plan (12/24/2023 12:49 PM CDT): Patient is maintained on Zetia. She could not take statins because of muscle ache and weakness. Cholesterol improved. Continue low-fat diet. Encouraged more weight loss. Assessment & Plan (09/21/2023 1:06 PM OUTSIDE MACHINIST APPRENTICE): Continue Zetia and low-fat diet and encouraged weight loss. Patient can not take statins because of myopathy Assessment & Plan (06/21/2023 5:27 PM CDT): Cholesterol is elevated. Patient said that she does not watch her diet. Discussed the importance of low-fat diet. She understands risks of hyperlipidemia. Continue Zetia. She can not take statins because of myopathy. Assessment & Plan (03/22/2023 4:56 PM CDT): Controlled on current medications. Continue low-fat diet. Will continue to monitor . Assessment & Plan (12/09/2022 12:48 PM CDT): Controlled on current medications. Continue low-fat diet. Will continue to monitor . Assessment & Plan (09/15/2022 12:33 PM OUTSIDE MACHINIST APPRENTICE): Patient is on Zetia and colestipol. We discussed low-fat diet and weight loss. She could not tolerate statins. Assessment & Plan (07/07/2022 8:45 AM OUTSIDE MACHINIST APPRENTICE): The patient could not take statins because of severe muscle cramps. I told her that she needs to take medications to help with her hyperlipidemia. We will resume Zetia 10 mg daily. Patient will take coenzyme Q10 200 mg daily. She will call us back if she has recurrent pain. Assessment & Plan (05/21/2022 3:45 PM CDT): Take Zetia on a daily basis. Continue low-fat diet. Encouraged weight loss Assessment & Plan (01/08/2022 3:10 PM CDT): Will stop Crestor because of muscle ache. Will start her on Zetia 10 mg daily. Discussed low fat diet and exercise and weight loss Assessment & Plan (10/09/2021 11:26 AM OUTSIDE MACHINIST APPRENTICE): LDL is 97. Will start her on small dose Crestor 5 mg q.h.s. for better control of hyperlipidemia. Continue low-fat diet Psoas mass 09/17/2021 Assessment & Plan (09/17/2021 2:41 PM OUTSIDE MACHINIST APPRENTICE): Patient with left so was cyst on CT of the abdomen. Will obtain MRI of the lumbar spine for further evaluation and make recommendations after that Morbid obesity 09/17/2021 Assessment & Plan (04/18/2025 8:01 AM CDT): BMI Follow-up includes: nutrition counseling. The patient was advised to exercise 5 times a week for 30 minutes each time. We discussed low calorie diet. Discussed lifestyle changes. Assessment & Plan (10/19/2024 7:54 AM OUTSIDE MACHINIST APPRENTICE): BMI Follow-up includes: nutrition counseling. The patient was advised to exercise 5 times a week for 30 minutes each time. We discussed low calorie diet. Discussed lifestyle changes. Assessment & Plan (07/19/2024 8:00 AM OUTSIDE MACHINIST APPRENTICE): BMI Follow-up includes: nutrition counseling. The patient was advised to exercise 5 times a week for 30 minutes each time. We discussed low calorie diet. Discussed lifestyle changes. Assessment & Plan (04/17/2024 8:09 AM CDT): BMI Follow-up includes: nutrition counseling. The patient was advised to exercise 5 times a week for 30 minutes each time. We discussed low calorie diet. Discussed lifestyle changes. Assessment & Plan (09/21/2023 1:06 PM OUTSIDE MACHINIST APPRENTICE): BMI Follow-up includes: nutrition counseling. The patient was advised to exercise 5 times a week for 30 minutes each time. We discussed low calorie diet. Discussed lifestyle changes. Assessment & Plan (06/21/2023 1:08 PM CDT): BMI Follow-up includes: nutrition counseling. The patient was advised to exercise 5 times a week for 30 minutes each time. We discussed low calorie diet. Discussed lifestyle changes. Assessment & Plan (09/15/2022 12:32 PM OUTSIDE MACHINIST APPRENTICE): BMI Follow-up includes: nutrition counseling. The patient was advised to exercise 5 times a week for 30 minutes each time. We discussed low calorie diet. Discussed lifestyle changes. Dry skin 06/30/2020 Pain in right foot 06/30/2020 Plantar fasciitis of right foot 06/27/2020 Elevated ferritin 05/02/2020 Lichen sclerosus 02/21/2018 Primary osteoarthritis of left knee 12/15/2016 Assessment & Plan (01/18/2025 2:26 PM CDT): Patient with chronic arthritis of left knee. She came today for steroid injection in the left knee. She received it under aseptic technique without complications. Assessment & Plan (10/24/2024 12:05 PM OUTSIDE MACHINIST APPRENTICE): Patient with chronic arthritis of left knee. She came today for steroid injection in the left knee. She received it under aseptic technique without complications. Assessment & Plan (04/25/2024 11:43 AM CDT): Patient with chronic arthritis of left knee. She came today for steroid injection in the left knee. She received it under aseptic technique without complications. Assessment & Plan (10/19/2023 2:59 PM OUTSIDE MACHINIST APPRENTICE): Patient with osteoarthritis of left knee. She likes to proceed with steroid injection. She received it under aseptic technique. Patient to avoid prolonged walking. She will call for persistent symptoms Assessment & Plan (06/29/2023 12:21 PM OUTSIDE MACHINIST APPRENTICE): Patient with osteoarthritis of left knee. She is here for steroid injection. She received it under aseptic technique with no complications. Assessment & Plan (03/22/2023 4:57 PM CDT): Patient with chronic arthritis of the left knee. She received steroid injection under aseptic technique and she tolerated the procedure well. Assessment & Plan (12/09/2022 5:23 PM CDT): Patient with chronic pain in the left knee. She had steroid injections in the past with good relief. She wants steroid injection today. She received it under aseptic technique without complications. Assessment & Plan (09/15/2022 12:32 PM OUTSIDE MACHINIST APPRENTICE): Patient with osteoarthritis of the left knee and she received steroid injection and tolerated the injection without complications Assessment & Plan (05/21/2022 3:45 PM CDT): Patient received steroid injection under aseptic technique and she tolerated the procedure well Assessment & Plan (01/22/2022 3:20 PM CDT): Patient takes meloxicam with good relief. She wants steroid injection. She received it under aseptic technique. She will call for persistent symptoms. Assessment & Plan (10/09/2021 11:26 AM OUTSIDE MACHINIST APPRENTICE): The patient received steroid injection under aseptic technique and she tolerated the procedure well. She will call for persistent symptoms Assessment & Plan (09/17/2021 2:40 PM OUTSIDE MACHINIST APPRENTICE): Patient is currently asymptomatic Controlled type 2 diabetes m ellitus without complication, without long-term current use of insulin 06/23/2016 Assessment & Plan (04/18/2025 8:01 AM CDT): Hemoglobin A1c is 5.8. Continue current medications, discussed low carbohydrate diet, advised to exercise on regular basis, advised to have annual eye exam. We will continue to monitor. Assessment & Plan (01/18/2025 7:51 AM CDT): Hemoglobin A1c is 5.8. Continue current medications, discussed low carbohydrate diet, advised to exercise on regular basis, advised to have annual eye exam. We will continue to monitor. Assessment & Plan (10/19/2024 7:54 AM OUTSIDE MACHINIST APPRENTICE): Hemoglobin A1c is 5.8. Continue current medications, discussed low carbohydrate diet, advised to exercise on regular basis, advised to have annual eye exam. We will continue to monitor. Assessment & Plan (07/19/2024 8:00 AM OUTSIDE MACHINIST APPRENTICE): Hemoglobin A1c is 5.8. Continue current medications, discussed low carbohydrate diet, advised to exercise on regular basis, advised to have annual eye exam. We will continue to monitor. Assessment & Plan (04/17/2024 8:09 AM CDT): Hemoglobin A1c is 5.8. Continue current medications, discussed low carbohydrate diet, advised to exercise on regular basis, advised to have annual eye exam. We will continue to monitor. Assessment & Plan (01/20/2024 4:44 PM CDT): Hemoglobin A1c is 5.8. Continue current medications, discussed low carbohydrate diet, advised to exercise on regular basis, advised to have annual eye exam. We will continue to monitor. Assessment & Plan (12/24/2023 12:48 PM CDT): Hemoglobin A1c is 5.8. Continue current medications, discussed low carbohydrate diet, advised to exercise on regular basis, advised to have annual eye exam. We will continue to monitor. Assessment & Plan (09/21/2023 1:07 PM OUTSIDE MACHINIST APPRENTICE): Continue current medications, discussed low carbohydrate diet, advised to exercise on regular basis, advised to have annual eye exam. We will continue to monitor. Assessment & Plan (06/21/2023 1:08 PM CDT): Continue current medications, discussed low carbohydrate diet, advised to exercise on regular basis, advised to have annual eye exam. We will continue to monitor. Assessment & Plan (03/22/2023 4:56 PM CDT): Continue current medications, discussed low carbohydrate diet, advised to exercise on regular basis, advised to have annual eye exam. We will continue to monitor. Assessment & Plan (12/09/2022 12:48 PM CDT): Continue current medications, discussed low carbohydrate diet, advised to exercise on regular basis, advised to have annual eye exam. We will continue to monitor. Assessment & Plan (09/15/2022 12:32 PM OUTSIDE MACHINIST APPRENTICE): Continue current medications, discussed low carbohydrate diet, advised to exercise on regular basis, advised to have annual eye exam. We will continue to monitor. Assessment & Plan (07/07/2022 8:45 AM OUTSIDE MACHINIST APPRENTICE): Continue current medications, discussed low carbohydrate diet, advised to exercise on regular basis, advised to have annual eye exam. We will continue to monitor. Assessment & Plan (05/21/2022 12:50 PM CDT): Continue current medications, discussed low carbohydrate diet, advised to exercise on regular basis, advised to have annual eye exam. We will continue to monitor. Assessment & Plan (01/22/2022 3:19 PM CDT): Continue current medications, discussed low carbohydrate diet, advised to exercise on regular basis, advised to have annual eye exam. We will continue to monitor. Patient has an appointment to see an eye doctor Assessment & Plan (01/08/2022 3:10 PM CDT): Continue current medications, discussed low carbohydrate diet, advised to exercise on regular basis, advised to have annual eye exam. We will continue to monitor. Assessment & Plan (10/09/2021 11:26 AM OUTSIDE MACHINIST APPRENTICE): Continue current medications, discussed low carbohydrate diet, advised to exercise on regular basis, advised to have annual eye exam. We will continue to monitor. Assessment & Plan (09/17/2021 2:40 PM OUTSIDE MACHINIST APPRENTICE): Patient complains of diarrhea with metformin. Will obtain blood test including hemoglobin A1c and we will consider changing the medication depending on the result of A1c Chronic dermatitis 03/23/2016 Osteoarthrosis 03/23/2016 Vaginitis 03/23/2016 Onychomycosis 09/10/2015 Benign paroxysmal vertigo 09/10/2015 Hypertension, essential 09/10/2015 Assessment & Plan (04/18/2025 8:01 AM CDT): Continue current medications. Discussed low-salt diet. Discussed exercise on regular basis. Will continue to monitor Assessment & Plan (01/18/2025 7:51 AM CDT): Continue current medications. Discussed low-salt diet. Discussed exercise on regular basis. Will continue to monitor Assessment & Plan (10/19/2024 7:54 AM OUTSIDE MACHINIST APPRENTICE): Continue current medications. Discussed low-salt diet. Discussed exercise on regular basis. Will continue to monitor Assessment & Plan (07/19/2024 8:00 AM OUTSIDE MACHINIST APPRENTICE): Continue current medications. Discussed low-salt diet. Discussed exercise on regular basis. Will continue to monitor Assessment & Plan (04/17/2024 8:09 AM CDT): Continue current medications. Discussed low-salt diet. Discussed exercise on regular basis. Will continue to monitor Assessment & Plan (01/20/2024 4:43 PM CDT): Continue current medications. Discussed low-salt diet. Discussed exercise on regular basis. Will continue to monitor Assessment & Plan (09/21/2023 1:06 PM OUTSIDE MACHINIST APPRENTICE): Blood pressure is low. Stop hydrochlorothiazide and continue other medications. Assessment & Plan (08/09/2023 4:00 PM OUTSIDE MACHINIST APPRENTICE): Blood pressure is low. Stop hydrochlorothiazide and continue other medications. Assessment & Plan (06/21/2023 1:08 PM CDT): Continue current medications. Discussed low-salt diet. Discussed exercise on regular basis. Will continue to monitor Assessment & Plan (03/22/2023 4:58 PM CDT): Continue current medications. Discussed low-salt diet. Discussed exercise on regular basis. Will continue to monitor Assessment & Plan (12/09/2022 12:48 PM CDT): Continue current medications. Discussed low-salt diet. Discussed exercise on regular basis. Will continue to monitor Assessment & Plan (05/21/2022 12:50 PM CDT): Continue current medications. Discussed low-salt diet. Discussed exercise on regular basis. Will continue to monitor Resolved Problems Problem Noted Date Diagnosed Date Resolved Date Abdominal pain 06/25/2023 12/07/2024 Assessment & Plan (06/25/2023 11:49 AM CDT): -see above BMI 39.0-39.9,adult 12/09/2022 05/25/20 23 BMI 39.0-39.9,adult 05/06/2022 05/25/20 23 Class 2 severe obesity due t o excess calories with serious comorbidity and body mass index (BMI) of 38.0 to 38.9 in adult 09/17/2021 5 Assessment & Plan (09/21/2023 1:05 PM OUTSIDE MACHINIST APPRENTICE): BMI Follow-up includes: nutrition counseling. The patient was advised to exercise 5 times a week for 30 minutes each time. We discussed low calorie diet. Discussed lifestyle changes. Assessment & Plan (12/09/2022 12:48 PM CDT): BMI Follow-up includes: nutrition counseling. The patient was advised to exercise 5 times a week for 30 minutes each time. We discussed low calorie diet. Discussed lifestyle changes. Assessment & Plan (05/21/2022 12:50 PM CDT): BMI Follow-up includes: nutrition counseling. The patient was advised to exercise 5 times a week for 30 minutes each time. We discussed low calorie diet. Discussed lifestyle changes. Assessment & Plan (09/17/2021 2:43 PM OUTSIDE MACHINIST APPRENTICE): BMI Follow-up includes: nutrition counseling. The patient was advised to exercise 5 times a week for 30 minutes each time. We discussed low calorie diet. Discussed lifestyle changes. Encounters Date Type Department Care Team Description 04/18/2025 3:45 PM CDT Office Visit [facility] Internal Medicine [address] [place] [phone] Lance Lopez MD Chronic alcoholic gastritis without hemorrhage (Primary Dx); Hypertension, essential; Obstructive sleep apnea; Morbid obesity (HCC); Statin myopathy; Controlled type 2 diabetes mellitus without complication, without long-term current use of insulin; Dyslipidemia; BMI 33.0-33.9,adult; Breast cancer screening by mammogram; Vaginal itching 03/20/2025 Results Follow-Up [facility] Care at [address] [phone] Silke Coffman PA Throat culture Throat 03/18/2025 11:27 PM CDT - 03/18/2025 11:59 PM CDT Hospital Encounter [address] [address] Acute viral syndrome Discharge Disposition: Discharge to home or self care 03/18/2025 6:45 PM CDT Office Visit [facility] at [address] [phone] Qing Nobles NP Acute cough (Primary Dx); Acute viral syndrome 03/15/2025 10:30 AM CDT Office Visit [facility] [place] [address] [place] [address] [address] [place] [phone] Vijay Artis MD Class 1 obesity due to excess calories with serious comorbidity and body mass index (BMI) of 32.0 to 32.9 in adult 03/15/2025 9:05 AM CDT Lab [facility] [address] [place] [id number] Controlled type 2 diabetes mellitus without complication, without long-term current use of insulin (HCC); Dyslipidemia 03/15/2025 Results Follow-Up [facility] [address] [place] [phone] Uma Escobar PA Albumin Creatinine Ratio, Urine, Comprehensive metabolic panel, Hemoglobin A1c, Additional followed-up results: 2 01/18/2025 1:30 PM CDT Office Visit [facility] Internal Medicine [address] [facility] [address] [place] [phone] Lance Lopez MD Bulging lumbar disc (Primary Dx); Controlled type 2 diabetes mellitus without complication, without long-term current use of insulin (HCC); Dyslipidemia; Hypertension, essential; Statin myopathy; Obstructive sleep apnea; BMI 32.0-32.9,adult; Primary osteoarthritis of left knee from Last 3 Months Immunizations Immunization Administration Dates Next Due COVID-19 MRNA (MODERNA) .5 M L (50 MCG) VACCINE (12 YEARS AND UP) 09/21/2024 COVID-19 mRNA (NutshellMail) 0.3 m L (30 mcg) vaccine (12 years and up) 06/18/2023 Influenza, Quadrivalent, Hig h Dose, Preservative Free, Intrr 05/24/2023,07/18/2022,07/17/2022 Influenza, Quadrivalent, Spl it, Intramuscular 09/19/2018 Influenza, Trivalent, High D ose, Split, Preservative Free, Intramuscular 05/29/2024 Zurn Sars-Cov-2 Bivalent V accination (12+ YRS) 09/05/2022 Pneumococcal Conjugate PCV 13 09/17/2021 Pneumococcal Conjugate Pcv20 12/09/2022 RSV Vaccine, Pref, Recombina nt, Subunit, Adjuvanted, PF, IM (Arexvy) 10/19/2024 Tdap 05/22/2013 ZOSTER Recombinant 04/22/2023, 3,02/20/2023,11/18 Surgical History Surgery Date Site/Laterality Comments CHOLECYSTECTOMY SECTION VAGINAL DELIVERY x3 COLONOSCOPY Medical History Medical History Date Comments Hypertension Diabetes mellitus (HCC) Type 2 diabetes mellitus Vertigo GERD (gastroesophageal reflux disease) Gastric ulcer Chronic constipation Hyperlipidemia Family History Medical History Relation Name Comments Diabetes Brother No Known Problems Father Diabetes Mother Hypertension Mother Hypertension Son Breast cancer Neg Hx Relation Name Status Comments Brother Daughter Alive Father Mother Son Alive Social History Tobacco Use Types Packs/Day Years Used Date Smoking Tobacco: Former Cigarettes 2 10 1 2 - 1991 Passive Smoke Exposure: Past Smokeless Tobacco: Former Tobacco Cessation:Counseling Given: Not Answered Alcohol Use Standard Drinks/Week Comments Yes 0 [...] on file Legal Sex Female 2:04 AM OUTSIDE MACHINIST APPRENTICE Gender Identity Not on file Sexual Orientation Not on file Occupation Industry Job Start Date Job End Date Retired Not on file Not on file Not on file Obstetrics History Para Term AB IAB SAB Ectopic Multiple Livin g Live Births 4 3 3 Date Outcome GA Total Labor Labor/2nd/3rd Weight Sex Type Anes PTL Kim A1 A5 Name Clin Term Term Term Last Filed Vital Signs Vital Sign Reading [...] Mass Index 33.82 04/18/2025 4:01 PM CDT Plan of Treatment Health Maintenance Due Date Last Done Comments Hepatitis B Screening 1973 DTaP/Tdap/Td Vaccine (2 - Td or Tdap) 05/22/2023 05/22/2013 Foot Exam 09/23/2024 09/23/2023, 03/24, 01/22/2022 Breast Cancer Screening-Mammogram 01/25/2025 01/26/2024, 11/24/2022, 10/27/2021, Additional history exists Covid-19 Vaccine (2023-2 5 season) 2025 09/21/2024, 06/18/2023, 09/05/2022, Additional history exists Influenza Vaccine (#1) 2025 , 05/24/2023, 07/18/2022, Additional history exists Hemoglobin A1C 09/15/2025 03/15/2025, 03/0 11/2024, 03/01/2024, Additional history exists Well Visit 65+ 10/19/2025 10/19/2024 Dilated Eye Exam 12/08/2025 12/08/2024, , 04/23/2022, Additional history exists Osteoporosis Screening-Bone Density Scan 01/25/2026 01/26/2024 Albumin Creatinine Ratio, Urine 03/15/2026 03/15/2025, 10/24/2024, 11/16/2023, Additional history exists Lipid Panel 03/15/2026 03/15/2025, 03/0 11/2024, 03/01/2024, Additional history exists eGFR 03/15/2026 03/15/2025, 03/0 11/2024, 03/01/2024, Additional history exists Depression Screening 04/18/2026 04/18/2025, 10/24/2024, 10/19/2024, Additional history exists Fall Risk Assessment 04/18/2026 04/18/2025, 10/24/2024, 10/19/2024, Additional history exists Colon Cancer Screening-Colonoscopy 12/21/2028 12/22/2023, 04/23/2018 Pneumococcal vaccine 65+ Completed 12/09/2022, 08/24 Zoster Vaccine Completed 04/22/2023, 08/2022, 02/20/2023, Additional history exists Hepatitis C Screening Completed 11/16/2023 Colon Cancer Screening-CT Colonography Discontinued 12/22/2023, 04/23/2018 Colon Cancer Screening-DNA Stool Discontinued 12/22/19, 04/23/2018 Colon Cancer Screening-FIT Discontinued 12/22/2023, Colon Cancer Screening-Sigmoidoscopy Discontinued 12/22/2023, 04/23/2018 Procedures Procedure Name Priority Date/Time Associated Diagnosis Comments POCT RAPID STREP Routine 03/18/2025 6:13 PM CDT Acute viral syndrome POC INFLUENZA A/B, COVID-19 ANTIGEN Routine 03/18/2025 6:05 PM CDT Acute viral syndrome THROAT CULTURE Routine 03/18/2025 5:00 PM CDT Acute viral syndrome EGFR Routine 03/15/2025 9:10 AM CDT Controlled type 2 diabetes mellitus without complication, without long-term current use of insulin (HCC) LIPID PANEL Routine 03/15/2025 9:10 AM CDT Controlled type 2 diabetes mellitus without complication, without long-term current use of insulin (HCC) Dyslipidemia HEMOGLOBIN A1C Routine 03/15/2025 9:10 AM CDT Controlled type 2 diabetes mellitus without complication, without long-term current use of insulin (HCC) COMPREHENSIVE METABOLIC PANEL Routine 03/15/2025 9:10 AM CDT Controlled type 2 diabetes mellitus without complication, without long-term current use of insulin (HCC) ALBUMIN CREATININE RATIO, URINE Routine 03/15/2025 9:06 AM CDT Controlled type 2 diabetes mellitus without complication, without long-term current use of insulin (HCC) HM DIABETES EYE EXAM Routine 12/08/2024 2:41 PM CDT SCREENING MAMMOGRAM BILATERAL W SUMANTH Schedule Routine, Read Routine (OP Routine) 01/26/2024 3:16 PM CDT Screening mammogram for breast cancer DEXA AXIAL SKELETON BONE DENSITY 1 OR MORE SITES Schedule Routine, Read Routine (OP Routine) 01/26/2024 3:04 PM CDT Postmenopausal COLONOSCOPY 12/22/2023 9:01 AM CDT HEPATITIS C ANTIBODY Routine 11/16/2023 11:03 AM CDT Encounter for hepatitis C screening test for low risk patient DIABETIC FOOT EXAM Routine 04/13/2022 from Last 3 Months or Most Recently Relevant to Health Maintenance Results * POCT rapid strep A (03/18/2025 6:13 PM CDT) Rapid Strep A, POC Negative Negative Swab 03/18/2025 6:13 PM CDT Qing Nobles HAZARDOUS WASTE MATERIAL TECHNICIAN POINT OF CARE TEST ORDERAB LES Final Result * POC Influenza A/B, COVID-19 antigen (03/18/2025 6:05 PM CDT) Influenza A Ag, POC Negative Negative [facility] Influenza B Ag, POC Negative Negative [facility] COVID-19 Ag POC Presumptive Negative Presumptive Negative, Invalid [facility] Nasal 03/18/2025 6:05 PM CDT Qing Nobles HAZARDOUS WASTE MATERIAL TECHNICIAN POINT OF CARE TEST ORDERAB LES Final Result Performing Organization Address City/[facility]/ZIP Co de Phone Number [facility] ED[facility] [address] [place] [address] * Throat culture Throat (03/18/2025 5:00 PM CDT) Report Final Report: No growth of pathogens. Comment:Testing performed by : [facility], [address] [place]., [address] Throat 03/18/2025 5:00 PM CDT 03/19/2025 3:57 AM CDT Narrative [facility] LOCKE - 03/20/2025 1:33 PM CDT Testing performed by [facility] Microbiology Laboratory ([phone]). Qing Nobles HAZARDOUS WASTE MATERIAL TECHNICIAN LAB MICROBIOLOGY - GENERAL ORDERABLES Final Result [facility] LOC[facility] [id number] Department of Laboratories [place], [place] [id number] * eGFR (03/15/2025 9:10 AM CDT) eGFR 67 >=60 mL/min/1. 73 m2 Comment: Interpretive Data Reference Interval Normal >/= 90 mL/min/1.73m2 Mildly decreased* 60 - 89 mL/min/1.73m2 Mildly to moderately decreased 45 - 59 mL/min/1.73m2 Moderately to severely decreased 30 - 44 mL/min/1.73m2 Severely decreased 15 - 29 mL/min/1.73m2 Kidney Failure < 15 mL/min/1.73m2 *Relative to young adult level Estimated glomerular filtration rate is determined by the 2020 CKD-EPI equation recommended by the National Kidney Foundation (A Unifying Approach to GFR Estimation: Recommendations of the NKF-ASK Task Force on Reassessing the Inclusion of Race in Diagnosing Kidney Disease, JASN 2020). The CKD-EPI equation should not be used for patients with unstable renal function and has not been validated in children and those over 70. Current interpretive data was last reviewed 2021. Blood 03/15/2025 9:10 AM CDT 03/15/2025 9:22 AM CDT Lance Lopez MD LAB BLOOD ORDERABLES Final Result Performing Organization Address City/[facility] Co de Phone Number [address] [place] [address] * (ABNORMAL) Hemoglobin A1c (03/15/2025 9:10 AM CDT) [facility] Hgb A1C 5.9(H) 4.0 - 5.6 % Estimated Average Glucose 123 mg/dL [facility] Comment: The ADA recommends reporting an estimated Average Glucose (eAG) with all Hemoglobin A1c results using the equation derived from a study of 507 normal and diabetic adults. Minority populations were underrepresented and children were not included. (Diabetes Care 31:7310-7132, 2008). The eAG is not equivalent to a fasting glucose. Blood 03/15/2025 9:10 AM CDT 03/15/2025 9:22 AM CDT Lance Lopez MD LAB BLOOD ORDERABLES Final Result Performing Organization Address City/[facility] Co de Phone Number [address] [place] [address] * Lipid panel (03/15/2025 9:10 AM CDT) Cholesterol 189 30 - 199 mg/dL Comment: Interpretive Data Ages < or = 19 years Acceptable: <170 mg/dL Borderline high: 170-199 mg/dL High: >or= 200 mg/dL Ages > or = 20 years Desirable: <200 mg/dL Borderline high: 200-239 mg/dL High: >or= 240 mg/dL Literature References: 1. Expert Panel on Integrated Guidelines for Cardiovascular Health and Risk Reduction in Children and Adolescents. Pediatrics 2011;128:S213 2. NCEP Expert Panel. Circulation 2004;110:227 Current Interpretive Data was last revised on 2018. Triglycerides 72 <=149 mg/dL [facility] Comment: Interpretive Data Ages < or = 9 years Acceptable: <75 mg/dL Borderline high: 75-99 mg/dL High: >or= 100 mg/dL Ages 10 to 20 years Acceptable: <90 mg/dL Borderline high: 90-129 mg/dL High: >or= 130 mg/dL Ages > or = 20 years Desirable: <150 mg/dL Borderline high: 150-199 mg/dL High: 200-499 mg/dL Very high: >or= 499 mg/dL Literature References: 1. Expert Panel on Integrated Guidelines for Cardiovascular Health and Risk Reduction in Children and Adolescents. Pediatrics 2011;128:S213 2. NCEP Expert Panel. Circulation 2004;110:227 Current Interpretive Data was last revised on 2018. HDL 71 >=40 mg/dL [facility]ANK[facility] Comment: Interpretive Data Ages < or = 19 years Acceptable: >45 mg/dL Borderline low: 40-45 mg/dL Low: <40 mg/dL Ages > or = 20 years Desirable: >or= 60 mg/dL Low: <40 mg/dL Literature References: 1. Expert Panel on Integrated Guidelines for Cardiovascular Health and Risk Reduction in Children and Adolescents. Pediatrics 2011;128:S213 2. NCEP Expert Panel. Circulation 2004;110:227 Current Interpretive Data was last revised on 2018. LDL, calculated 105 <=129 mg/dL [facility] Comment: Interpretive Data Ages < or = 19 years Acceptable: <110 mg/dL Borderline high: 110-129 mg/dL High: >or= 130 mg/dL Ages > or = 20 years Optimal: <100 mg/dL Near optimal: 100-129 mg/dL Borderline high: 130-159 mg/dL High: >160 mg/dL Calculated using the Merrick LDL-C estimating equation. This equation was implemented on 2024. Prior to this date LDL-C was estimated using the Friedewald equation. Literature References: 1. Expert Panel on Integrated Guidelines for Cardiovascular Health and Risk Reduction in Children and Adolescents. Pediatrics 2011;128:S213 2. NCEP Expert Panel. Circulation 2004;110:227 3. Merrick Bonilla et al. MEGAN Cardiol. 2020 December 21;5(5):540-548. doi: 10.1001/[email or web address] Current Interpretive Data was last revised on 2024. Non-HDL Cholesterol 118 mg/dL [facility] Comment: Interpretive Data Ages < or = 19 years Acceptable: <120 mg/dL Borderline high: 120-144 mg/dL High: >145 mg/dL Ages > or = 20 years When triglycerides are >200 mg/dL, Non-HDL cholesterol is a secondary target of therapy with treatment goals that are 30 mg/dL greater than the LDL cholesterol target. Literature References: 1. Expert Panel on Integrated Guidelines for Cardiovascular Health and Risk Reduction in Children and Adolescents. Pediatrics 2011;128:S213 2. NCEP Expert Panel. Circulation 2004;110:227 Current Interpretive Data was last revised on 2018. Chol/HDL ratio 3 [facility]ANK[facility] TSAI Blood 03/15/2025 9:10 AM CDT 03/15/2025 9:22 AM CDT Narrative AKANKSHA - 03/15/2025 9:52 AM CDT Has the patient been fasting for 8 hours or more?->Yes us Lance Lopez MD LAB BLOOD ORDERABLES Final Result [facility] TSAI [address] [facility] Department [place] [address] * Comprehensive metabolic panel (03/15/2025 9:10 AM CDT) Sodium 138 135 - 145 mmol/L Potassium, pl 4.3 3.3 - 4.9 mmol/L [facility] Chloride 102 97 - 110 mmol/L [facility] CO2 28 22 - 32 mmol/L [facility] Anion gap 8 2 - 15 mmol/L [facility] BUN 22 6 - 25 mg/dL [facility] Creatinine 0.92 0.60 - 1.10 mg/dL [facility] Glucose 93 70 - 199 mg/dL [facility] Comment: Interpretive Data Fasting glucose >/= 126 mg/dl is diagnostic for diabetes. Fasting is defined as no caloric intake for at least 8 hours. Fasting glucose between 100 mg/dl to 125 mg/dl is diagnostic of prediabetes. In a patient with classic symptoms of hyperglycemia or hyperglycemic crisis, a random glucose >/= 200 mg/dl is diagnostic for diabetes. In the absence of unequivocal hyperglycemia, results should be confirmed by repeat testing. The classification and Diagnosis of Diabetes Diabetes Care 202; 46: S19-S40. Current interpretive data was last revised 2022. Calcium 9.9 8.5 - 10.3 mg/dL [facility] Bilirubin, total 0.6 0.1 - 1.2 mg/dL [facility] Protein, pl 7.3 6.5 - 8.5 g/dL [facility] Albumin 4.3 3.5 - 5.0 g/dL [facility] Alk phos 129 40 - 130 Units/L [facility] [facility] ALT 43 7 - 45 Units/L [facility] AST 29 10 - 45 Units/L [facility] Blood 03/15/2025 9:10 AM CDT 03/15/2025 9:22 AM CDT Lance Lopez MD LAB BLOOD ORDERABLES Final Result [facility] [address] [facility] Department [place] [address] * Albumin Creatinine Ratio, Urine (03/15/2025 9:06 AM CDT) Albumin Ur <12.0 mg/L Comment: Interpretive Data No reference range established. Current interpretive data was last revised 2019. Creatinine Ur 97.3 mg/dL [facility] Comment: Interpretive Data No reference range established. Current interpretive data was last revised 2019. Albumin Creatinine Ratio, Ur <12 1 - 29 mg/g [facility] Urine 03/15/2025 9:06 AM CDT 03/15/2025 9:23 AM CDT Lance Lopez MD LAB URINE ORDERABLES Final Result [facility] [address] [facility] Department [place] [address] * DIABETES EYE EXAM (12/08/2024 2:41 PM CDT) SCRIBED DIABETIC DILATED EYE EXAM Normal Historical Provider HEALTH MAINTENANCE Final Result * Screening Mammogram Bilateral W Sumanth (01/26/2024 3:16 PM CDT) Anatomical Region Laterality Modality Breast Bilateral Mammography Impressions 01/26/2024 3:19 PM CDT BI-RADS ATLAS category (overall): 1 - Negative There is no mammographic evidence of malignancy. A 1 year screening mammogram is recommended. The patient has been or will be contacted. We recommend annual screening mammography for women at average risk of breast cancer beginning at age 40, based on guidelines of the [employer] (ACR Practice Parameter for the Performance of Screening and Diagnostic Mammography) and [place]. For women with and elevated risk of breast cancer, please refer to the ACR Practice Parameter for specific screening recommendations. The patient will be entered into a reminder system with a target due date of 1 year for her next screening exam. Narrative 01/26/2024 3:19 PM CDT Screening Mammogram Bilateral W Sumanth: 01/26/24 The study was acquired using full field digital technology and interpreted from soft copy. 2D digital mammographic views, as well as 3D digital tomosynthesis were performed in the CC and MLO projections. CLINICAL: Screening mammogram for breast cancer. No relevant medical history has been documented for this patient. History of breast cancer in Neg Hx. COMPARISONS: 11/24/2022 Screening Mammogram Bilateral W Sumanth 10/27/2021 Screening Mammogram Bilateral W Sumanth 01/27/2021 Breast Imaging Screening Outside Reference 05/02/2019 Breast Imaging Screening Outside Reference 07/06/2016 Screening Mammogram Bilateral W Sumanth BREAST TISSUE: The breasts are almost entirely fatty. FINDINGS: No suspicious masses, suspicious calcifications, or other suspicious findings are seen within either breast. There has been no suspicious change. 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 REFERENCE: Bone mineral density: T-Score: Normal (T-score above or = -1.0) Low bone mass (T-score between -1.0 and -2.5) replaces the previously used term osteopenia Osteoporosis (T-score = or below -2.5) Z-Score: Within the expected range for age (Z-score above -2.0) Below the expected range for age (Z-score is -2.0 or below) Please see below follow up recommendations. Medical evaluation for secondary causes of low bone mineral density may be appropriate. FRAX is a World Health Organization validated fracture risk assessment tool that calculates a person's 10 year probability of a major osteoporosis related fracture and hip fracture. According to the National Osteoporosis Foundation guidelines, postmenopausal women and men age 50 or older with low bone mass and a 10 year probability of a major osteoporosis related fracture = or greater than 20% or a 10 year probability of a hip fracture = or greater than 3% should be considered for pharmacological treatment for the prevention of osteoporosis. For further information, including treatment recommendations, please refer to the 2019 ISCD Official Positions (http://www.iscd.org) and the NOF's Clinician's Guide to Prevention and Treatment of Osteoporosis (http://www.nof.org/professionals/clinical-guidelines) THIS IS AN ELECTRONICALLY VERIFIED FINAL REPORT 01/27/2024 4:03 PM - Electronically signed by Bunny Price M.D. 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 REFERENCE: Bone mineral density: T-Score: Normal (T-score above or = -1.0) Low bone mass (T-score between -1.0 and -2.5) replaces thepreviously used term osteopenia Osteoporosis (T-score = or below -2.5) Z-Score: Within the expected range for age (Z-score above -2.0) Below the expected range for age (Z-score is -2.0 or below) Please see below follow up recommendations. Medical evaluation forsecondary causes of low bone mineral density may be appropriate. FRAX is a World Health Organization validated fracture risk assessmenttool that calculates a person's 10 year probability of a major osteoporosisrelated fracture and hip fracture. According to the National OsteoporosisFoundation guidelines, postmenopausal women and men age 50 or older with low bonemass and a 10 year probability of a major osteoporosis related fracture = or greater than 20% or a 10 year probability of a hip fracture = or greaterthan 3% should be considered for pharmacological treatment for the preventionof osteoporosis. For further information, including treatment recommendations, please referto the 2019 ISCD Official Positions (http://www.iscd.org) and the NOF's Clinician's Guide to Prevention and Treatment of Osteoporosis (http://www.nof.org/professionals/clinical-guidelines) THIS IS AN ELECTRONICALLY VERIFIED FINAL REPORT 01/27/2024 4:03 PM - Electronically signed by Bunny Price M.D. MF: [email or web address] Report ID: [id number] Reading Location: [id number] us Lance Lopez MD IMG DXA PROCEDURES Final Re sult * Colonoscopy (12/22/2023 9:01 AM CDT) Anatomical Region Laterality Modality Other Narrative Procedure Note Raul Dickens MD - 12/22/2023 9:01 AM CDT [facility] GI ENDOSCOPY Patient Name: Chetna Steele Procedure Date: 12/22/2023 9:01 AM Date of : 1955 Admit Type: Outpatient Age: 68 Gender: Female Attending MD: Raul Dickens M.D. Room: [facility] ENDOSCOPY ROOM 06 Note Status: Finalized Procedure: Colonoscopy Indications: Screening for colorectal malignant neoplasm Referring MD: Lance Lopez M.D. Providers: Raul Dickens M.D. Medicines: Monitored Anesthesia Care Complications: No immediate complications. Estimated Blood Loss: Estimated blood loss: none. Procedure: Pre-Anesthesia Assessment: - Prior to the procedure, a History and Physicalwas performed, and patient medications and allergieswere reviewed. The risks and benefits of the procedureand the sedation options and risks were discussed withthe patient. All questions were answered and informed consent was obtained. Patient identification and proposed procedure were verified. After reviewingthe risks and benefits, the patient was deemed in satisfactory condition to undergo the procedure.The anesthesia plan was to use monitored anesthesiacare (MAC). Immediately prior to administration of medications, the patient was re-assessed foradequacy to receive sedatives. The heart rate, respiratory rate, oxygen saturations, blood pressure, adequacyof pulmonary ventilation, and response to care were monitored throughout the procedure. The physical status of the patient was re-assessed after the procedure. The benefits, risks and alternatives of theprocedure and sedation were discussed and informed consentwas obtained. All questions were answered. Please referto the signed informed consent document in the medical record. The scope was passed under direct vision.The [id number] colonoscope was introduced through theanus and advanced to the cecum, identified byappendiceal orifice and ileocecal valve. The colonoscopy was performed without difficulty. The patient tolerated the procedure well. The quality of the bowel preparation was good. Scope withdrawal time was 7 minutes. Prep was administered in a split dose. Findings: The perianal and digital rectal examinations were normal. A diminutive polyp was found in the ascending colon. The polyp was removed with a cold biopsy forceps. Resection and retrieval were complete. A diminutive polyp was found in the transverse colon. The polyp was removed with a cold biopsy forceps. Resection and retrieval were complete. A diminutive polyp was found in the sigmoid colon. The polyp wasremoved with a cold biopsy forceps. Resection and retrieval were complete. A few small-mouthed diverticula were found in the sigmoid colon. Non-bleeding internal hemorrhoids were found during retroflexion. The hemorrhoids were small. The exam was otherwise without abnormality. Impression: - One diminutive polyp in the ascending colon,removed with a cold biopsy forceps. Resected andretrieved. - One diminutive polyp in the transverse colon, removed with a cold biopsy forceps. Resected and retrieved. - One diminutive polyp in the sigmoid colon,removed with a cold biopsy forceps. Resected andretrieved. - Diverticulosis in the sigmoid colon. - Non-bleeding internal hemorrhoids. - The examination was otherwise normal. Recommendation: - Patient has a contact number available for emergencies. The signs and symptoms of potential delayed complications were discussed with thepatient. Return to normal activities tomorrow. Written discharge instructions were provided to thepatient. - High fiber diet. - Continue present medications. - Await pathology results. - Repeat colonoscopy in 5 years for surveillance. Raul Dickens M.D. Raul Dickens M.D. 12/22/2023 9:46:40 AM . Number of Addenda: 0 Note Initiated On: 12/22/2023 9:01 AM Recognized by the [employer] [employer] for promoting quality in endoscopy us Raul Dickens MD ENDOSCOPY PROCEDURES Final Resul t * Hepatitis C antibody Blood (11/16/2023 11:03 AM CDT) Hep C Ab Nonreactive Nonreactive Comment: Antibodies to HCV not detected. Does NOT exclude the possibility of recent exposure to HCV. Current interpretive data was last revised on 22 Interpretive Data Nonreactive: Antibodies to HCV not detected. Does NOT exclude the possibility of recent exposure to HCV. Equivocal: Equivocal for HCV antibodies. Supplemental molecular testing will be automatically performed to determine infection status in accordance with current CDC screening recommendations. Reactive: Positive for HCV antibodies. This may represent current or past HCV infection. Supplemental molecular testing will be automatically performed to determine current infection status in accordance with current CDC screening recommendations. Interpretive data was last revised on 2019. Blood 11/16/2023 11:0 3 AM CDT 11/16/2023 11:36 AM CDT Lance Lopez MD LAB MICROBIOLOGY - GENERAL ORDERABLES Final Result [facility] [address] [facility] Department [place] [address] * Diabetic Foot Exam (04/13/2022) Narrative Cande Peterson MA - 04/13/2022 normal Historical Provider HEALTH MAINTENANCE Final Result from Last 3 Months or Most Recently Relevant to Health Maintenance Insurance [facility] IDTN [facility] MEDICARE ADVANTAGE IDTN [facility] MEDICARE ADVANTAGE [facility] MEDICARE ADVANTAGE Care Teams Slipcover Cutter Relationship Specialty Start Date End Date Lance Lopez MD [address] [facility] [address] [address] [place] [address] [place] [id number] PCP - General Internal Medicine 09/07/24 Helena Leon MD Consulting Physician Pain Management 01/27/23 Mary Valencia Ud, MD Consulting Physician Surgery 04/01/23 Vijay Artis MD [address] [facility] [address] [place] [address] [place] [id number] Consulting Physician Family Practice 09/07/24
--- OUTSIDE RECORDS SUMMARY | 2025-04-19 22:00 | XMS_ITS | Encounter Summary ---
Author Organization [facility] Healthcare Address [address] [place] [address] Care Team Providers Care Quantitative Analyst Developer Name Role Phone Helena Leon MD Unavailable Mary Valencia Ud, MD Unavailable Lance Lopez MD Primary Care Provider [phone] Vijay Artis MD Unavailable Encounter Details Date Type Department Care Team (Late st Contact Info) Description 12/08/2024 Telephone [facility] Internal Medicine [address] [phone] Lance Lopez MD [address] [place] [address] Social History Tobacco Use Types Packs/Day Years Used Date Smoking Tobacco: Former Cigarettes 2 10 2 - 1991 Passive Smoke Exposure: Past Smokeless Tobacco: Former Alcohol Use Standard Drinks/Week Comments Never 0 (1 standard drink = 0.6 oz pur e alcohol) AUDIT-C Answer Date Recorded Q1: How often do you have a drink containing alcohol? Never 12/07/2024 Q2: How many drinks containi ng alcohol do you have on a typical day when you are drinking? Patient does not drink Q3: How often do you have si x or more drinks on one occasion? 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 Gender Identity Not on file Sexual Orientation [...] documented as of this encounter Care Teams Quantitative Analyst Developer Relationship Specialty Start Date End Date Lance Lopez MD [address] [facility] [address] [place] [address] [place] [id number] PCP - General Internal Medicine 09/07/24 Helena Leon MD Consulting Physician Pain Management 01/27/23 Mary Valencia Ud, MD Consulting Physician Surgery 04/01/23 Vijay Artis MD [address] [facility] [address] [place] [address] [place] [id number] Consulting Physician Family Practice 09/07/24 documented as of this encounter
--- OUTSIDE RECORDS SUMMARY | 2025-04-19 22:00 | XMS_ITS | Encounter Summary ---
Author Organization [facility] Address [address] [place] [address] Phone Care Team Providers Care Grain Miller Helper Name Role Phone Jose Eduardo Chavarria Primary Care Provider [phone] Pipe Wall MD Unavailable [phone] Encounter Details Date Type Department Care Team (Late st Contact Info) Description 04/29/2021 Telephone [facility] [address] [place] [address] Pipe Wall MD [address] [address] Social History Tobacco Use Types [...] Recorded Total Score - Questions 1-9 0 08/2020 Comments No Sex and Gender Information Value [...] Noted Time PHQ-9 Depression Total Score: 0 10/22/19 21 2:08 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
--- OUTSIDE RECORDS SUMMARY | 2025-04-19 22:00 | XMS_ITS | Clinical Summary ---
Author Organization [facility] Address [address] [place] [address] Care Team Providers Care Steam And Gas Turbine Assembler Name Role Phone Lance Lopez MD Primary Care Provider [phone] Social History Tobacco Use Types Packs/Day Years Used Date Smoking Tobacco: Never Assessed Comments Unknown Sex and Gender Information Value Date Recorded Sex Assigned at Not on file Legal Sex Female 8:26 PM CDT Gender Identity Not on file Sexual Orientation Not on file Plan of Treatment Health Maintenance Due Date Last Done Comments Colorectal Cancer Screening Colonoscopy (10 Years) 1955 Hepatitis C 1972 DTaP, Tdap and Td Vaccines ( 1 - Tdap) 1973 Pneumococcal Vaccine: 50+ Ye ars (1 of 1 - PCV) 2004 Zoster Vaccines (1 of 2) 2004 Mammogram Screening 07/26/2019 07/26/2017 Dexa Scan (General) 2019 COVID-19 Vaccine (2023-2 5 season) 2024 RSV Immunization or 60+ Years (1 - 1-dose 75+ series) 2029 Meningococcal B Vaccine Aged Out No l onger eligible based on patient's age to complete this topic Meningococcal Vaccine Aged Out No mika mary eligible based on patient's age to complete this topic RSV Immunizations Under 20 Months Aged Out No longer eligible based on patient's age to complete this topic Procedures Procedure Name Priority Date/Time Associated Diagnosis Comments MG SCREENING W JUSTO BIANCA DIGI Routine 07/26/2017 1:20 PM RECEPTION CENTRE MANAGER Screening breast examination from Last 3 Months or Most Recently Relevant to Health Maintenance Results * MG SCREENING W JUSTO BIANCA DIGI (07/26/2017 1:20 PM RECEPTION CENTRE MANAGER) Anatomical Region Laterality Modality Breast Bilateral Mammography 07/26/2017 1:37 PM RECEPTION CENTRE MANAGER Impressions 07/26/2017 1:38 PM RECEPTION CENTRE MANAGER IMPRESSION: 1. Stable mammographic appearance with no new findings to suggest malignancy in either breast. Assessment: ACR BI-RADS Category 2 - Benign. Recommendation: 1: Routine screening mammogram bilateral in 1 year Comments: Narrative 07/26/2017 1:38 PM RECEPTION CENTRE MANAGER Examination: Digital bilateral screening mammogram with 3-D tomosynthesis Exam Date/Time: 07/26/2017 12:00 AM Reason For Exam: screen No personal or family history of breast cancer. No prior breast procedures. No current complaints. 8 pound weight gain since prior mammogram. Comparison: Mammograms from 03/11/2015 09/16/2013 01/09/2012 11/08/2010 Technique: Digital screening mammography of both breasts was performed in addition to 3-D Tomosynthesis technique. This study was read with the assistance of a computer-aided detection system. Tissue density: The breast tissue is almost entirely composed of fat. Findings: Benign axillary lymph nodes bilaterally. Benign punctate calcifications again seen. Overall parenchymal pattern is stable from the prior studies. There is no focal asymmetry, dominant mass lesion, area of skin thickening, or cluster of suspicious appearing calcifications in either breast to suggest malignancy. Lance Lopez MD MAMMO Final Result from Last 3 Months or Most Recently Relevant to Health Maintenance Insurance Care Teams Steam And Gas Turbine Assembler Relationship Specialty Start Date End Date Lance Lopez MD [address] [facility] [address] [place] [address] [place] [id number] PCP - General INTERNAL MEDICINE 07/26/17
[2025-04-19] MEDS: ONDANSETRON HCL ODT 4 MG TABLET PO (22:06)
[2025-04-19 22:59] VITALS: BP 117/107; O2SAT 100
[2025-04-19 23:01] VITALS: BP 125/60; O2SAT 99
[2025-04-19] MEDS: DICYCLOMINE HCL INJ 20 MG/2 ML VIAL IM (23:03)
[2025-04-19] MEDS: SODIUM CHLORIDE 0.9% IV 1,000 ML 999 ML IV CONT (23:04)
[2025-04-19] MEDS: ONDANSETRON INJ 4 MG/2 ML VIAL IV PUSH (23:04)
[2025-04-19 23:06] LABS: Hematocrit 43.4 % (37.0-47.0); Hemoglobin 13.6 g/dL (12.0-15.0); Immature Granulocyte Percent A 0.1 % (0-0.5); Lymphocytes Absolute Auto 3.40 K/mm3 (0.9-3.2); Mean Corpuscular HGB Conc 31.3 g/dl (32-36); Mean Corpuscular Hemoglobin 27.6 pg (26-34); Mean Corpuscular Volume 88.0 fl (80-100); Nucleated Red Blood Cells Absolute Auto 0.000 K/mm3 (0.0-0.012); Nucleated Red Blood Cells Perc 0.0 % (0.0-0.2); Platelet Count Result 240 k/mm3 (150-375); Red Blood Count 4.93 M/mm3 (4.2-5.4); White Blood Count 7.6 K/mm3 (4.5-10.0)
[2025-04-19 23:18] LABS: Alanine Aminotransferase 37 U/L (6-35); Albumin Level 4.5 g/dL (3.5-5.1); Alkaline Phosphatase 108 U/L (38-126); Anion Gap 6 mmol/L (4-12); Aspartate Amino Transferase 36 U/L (14-36); Bilirubin,Total 0.7 mg/dL (0.2-1.3); Blood Urea Nitrogen 21 mg/dL (7-17); Calcium 10.1 mg/dL (8.4-10.2); Carbon Dioxide 22 mmol/L (22-30); Chloride 106 mmol/L (98-107); Estimated CRCL calculation 46 ml/min; Estimated Glomerular Filt Rate 55; Glucose 100 mg/dL (65-110); Lipase 90 U/L (23-300); Potassium 4.5 mmol/L (3.4-5.0); Sodium 134 mmol/L (137-145); Total Protein 8.1 g/dL (6.3-8.2)
[2025-04-19 23:40] VITALS: BP 142/51; O2SAT 100
--- NOTE | 2025-04-19 23:47 | ED_ITS ---
HPI - General Adult General Chief complaint: Nausea/Vomiting/Diarrhea Stated complaint: nausea, diarrhea Time Seen by Provider: 04/19/25 21:36 History of Present Illness HPI narrative: This is a 69-year-old female presenting with nausea vomiting diarrhea. Patient went our primary care yesterday and was prescribed fluconazole. She said she took it on an empty stomach and since then she has had GI discomfort. She does not have any fevers. No chest pain or difficulty breathing. She has crampy abdominal pain throughout her abdomen. She is requesting IV fluids and antinausea meds. No itching hives wheezing or swelling of the tongue or lip. Related Data Home Medications ?Medication ?Instructions ?Recorded ?Confirmed ?Last Taken ?Type acetaminophen 500 mg PO Q6H PRN Fever Or P ain 07/22/20 07/22/20 Unknown History benzonatate 100 mg PO Q8H PRN Cough 06/2507/22/20 Unknown History diphenoxylate-atropine 2.5 1 tablet PO Q6H PRN Diarrhe a 07/22/20 07/22/20 Unknown History mg-0.025 mg tablet doxazosin 2 mg tablet 2 mg PO DAILY 07/22/2007/22 Unknown History hydrochlorothiazide 25 mg tablet 25 mg PO DAILY 07/22/20 Unknown History losartan 100 mg tablet 100 mg PO DAILY 07/22/20 Unknown History metoprolol succinate 50 mg 50 mg PO DAILY 07/22/20 Unknown History tablet,extended release 24 hr omeprazole 20 mg capsule,delayed 20 mg PO DAILY 07/22/20 Unknown History release spironolactone 25 mg tablet 25 mg PO DAILY 07/22/20 Unknown History metformin 500 mg tablet 500 mg PO BID 02/17/21 Unkn own History Allergies Allergy/AdvReac Type Severity Reaction Status Date / Time codeine Allergy Unknown Unknown Verified 04/19/25 21:25 propoxyphene Allergy Unknown Other Verified 04/19/25 21:25 [facility] Past Medical History Medical History Essential hypertension GERD (gastroesophageal reflux disease) Hepatic steatosis Surgical History Surgical History History of History of cholecystectomy Family History Family History Mother Diabetes mellitus Hypertension Social History Social History Social History: Patient lives at home alone. She is no longer working. She wishes to list her son, Vinicius, as her surrogate MDM. She wishes to be a full code. Her PCP is Dr. Chavarria Smoking status: Former smoker Smoking end date: 08/23/89 Additional smoking assessment comments: Smoked 2ppd x 6 years. Quit 30 years ago Alcohol intake: never Substance use: never Gender identity (if verbalized by the patient): Female Spiritual care concerns: No Exam 2 Narrative: APPEARANCE: No apparent distress. Well-appearing, pleasant polite Head: atraumatic. EYES: EOMI, NOSE: Atraumatic NECK: Trachea midline RESPIRATORY: No increased rate of breathing CTAB CARDIOVASCULAR: RRR, no peripheral edema ABDOMINAL: Non-distended soft nontender MUSCULOSKELETAl: No obvious deformities NEURO: Alert. Moving 4/4 extremities SKIN:: Warm, dry. Normal color PSYCHIATRIC: Normal affect Course Vital Signs Vital signs: Vital Signs Temperature 97.1 F L 04/19/25 21:21 Pulse Rate 71 04/19/25 21:21 Respiratory Rate 16 04/19/25 21:21 Blood Pressure 133/78 04/19/25 21:21 Pulse Oximetry 100 04/19/25 21:21 Oxygen Delivery Room Air 04/19/25 21:21 Temperature 97.1 F L 04/19/25 21:21 Pulse Rate 71 04/19/25 21:21 Respiratory Rate 16 04/19/25 21:21 Blood Pressure 133/78 04/19/25 21:21 Pulse Oximetry 100 04/19/25 21:21 Oxygen Delivery Room Air 04/19/25 21:21 Medical Decision Making MDM Narrative Medical decision making narrative: -Course: 69-year-old female presenting with GI discomfort after taking a dose of fluconazole. Vital signs are stable. She is very well-appearing and is in good spirits. She does have some tenderness on her abdominal exam. Patient given fluids and antiemetics and antispasmodics. Laboratory studies within normal limits. CT abdomen pelvis showed diarrheal illness.. On re-evaluation patient was feeling better. [facility] Given return precautions and primary care follow-up -DDX includes but is not limited to: Medication side effect, allergic reaction, gastroenteritis, food poisoning intra-abdominal pathology Vital Signs Vital Signs: Vital Signs Temperature 97.1 F L 04/19/25 21:21 Pulse Rate 71 04/19/25 21:21 Respiratory Rate 16 04/19/25 21:21 Blood Pressure 133/78 04/19/25 21:21 Pulse Oximetry 100 04/19/25 21:21 Oxygen Delivery Room Air 04/19/25 21:21 Temperature 97.1 F L 04/19/25 21:21 Pulse Rate 71 04/19/25 21:21 Respiratory Rate 16 04/19/25 21:21 Blood Pressure 133/78 04/19/25 21:21 Pulse Oximetry 100 04/19/25 21:21 Oxygen Delivery Room Air 04/19/25 21:21 Lab Data 04/19/25 22:56 04/19/25 22:56 Labs: Lab Results 04/19/25 Range/Units 22:56 WBC 7.6 (4.5-10.0) K/mm3 RBC 4.93 (4.2-5.4) M/mm3 Hgb 13.6 (12.0-15.0) g/dL Hct 43.4 (37.0-47.0) % MCV 88.0 (80-100) fl MCH 27.6 (26-34) pg MCHC 31.3 L (32-36) g/dl RDW 13.6 (11.5-14.5) % Plt Count 240 (150-375) k/mm3 MPV 9.9 (7.4-10.4) fl Immature Gran % (Auto) 0.1 (0-0.5) % Neut % (Auto) 41.7 L (45.5-73.1) % Lymph % (Auto) 44.8 H (18.3-44.2) % [place] % (Auto) 10.1 H (2.6-8.5) % Eos % (Auto) 2.8 (0-4.4) % Baso % (Auto) 0.5 (0.2-1.2) % Lymph # (Auto) 3.40 H (0.9-3.2) K/mm3 [place] # (Auto) 0.8 H (0.1-0.6) K/mm3 Eos # (Auto) 0.2 (0-0.3) K/mm3 Baso # (Auto) 0.0 (0.0-0.1) K/mm3 Abs Immat Gran (auto) 0.01 (0.00-0.031) K/mm3 Absolute Neuts (auto) 3.2 (1.3-6.7) K/mm3 Absolute Nucleated RBC 0.000 (0.0-0.012) K/mm3 Nucleated RBC % 0.0 (0.0-0.2) % Sodium 134 L (137-145) mmol/L Potassium 4.5 (3.4-5.0) mmol/L Chloride 106 (98-107) mmol/L Carbon Dioxide 22 (22-30) mmol/L Anion Gap 6 (4-12) mmol/L BUN 21 H D (7-17) mg/dL Creatinine 0.99 (0.7-1.0) mg/dL Estim Creat Clear Calc 46 ml/min Estimated GFR 55 L (59 - ) Glucose 100 (65-110) mg/dL Calcium 10.1 (8.4-10.2) mg/dL Total Bilirubin 0.7 (0.2-1.3) mg/dL AST 36 (14-36) U/L ALT 37 H (6-35) U/L Alkaline Phosphatase 108 (38-126) U/L Total Protein 8.1 (6.3-8.2) g/dL Albumin 4.5 (3.5-5.1) g/dL Lipase 90 (23-300) U/L Discharge Plan Discharge Clinical Impression: Nausea & vomiting, Diarrhea Patient Disposition: Home Condition: Stable Instructions: Antibiotic Form, Acute Nausea and Vomiting (ED) Additional Instructions: You were seen in the ED for nausea and vomiting and diarrhea. This may be a reaction to the fluconazole. Please use Zofran for nausea. Please follow-up with your primary care physician for further management. He will fevers severe abdominal pain or intractable nausea vomiting please return to the ED for re- evaluation. Patient Language: Ecuad[place] Prescriptions: New ondansetron 4 mg tablet,disintegrating 4 mg PO Q8H PRN (Reason: nausea and vomiting) Qty: 30 0RF No Action metformin 500 mg tablet 500 mg PO BID naproxen 500 mg tablet 500 mg PO BID PRN (Reason: pain) Qty: 20 0RF cyclobenzaprine 10 mg tablet 10 mg PO TID PRN (Reason: muscle spasm) Qty: 20 0RF ondansetron 4 mg tablet,disintegrating 4 mg PO Q8H PRN (Reason: nausea and vomiting) Qty: 15 0RF metoprolol succinate 50 mg tablet extended release 24 hr 50 mg PO DAILY diphenoxylate-atropine 2.5-0.025 mg tablet 1 tablet PO Q6H PRN (Reason: Diarrhea) spironolactone 25 mg tablet 25 mg PO DAILY omeprazole 20 mg capsule,delayed release(DR/EC) 20 mg PO DAILY Rx Instructions: before breakfast hydrochlorothiazide 25 mg tablet 25 mg PO DAILY losartan 100 mg tablet 100 mg PO DAILY doxazosin 2 mg tablet 2 mg PO DAILY acetaminophen 500 mg 500 mg PO Q6H PRN (Reason: Fever Or Pain) benzonatate 100 mg 100 mg PO Q8H PRN (Reason: Cough) albuterol sulfate [Proventil HFA] 90 mcg/actuation Hfa Aerosol Inhaler 2 puff inhalation Q6H PRN (Reason: shortness of breath or wheezing) Qty: 6.7 0RF Rx Instructions: Take 2 puffs inhaled every 6 hours as needed for shortness of breath nitrofurantoin monohyd/m-cryst [Macrobid] 100 mg capsule 100 mg PO Q12H 5 Days Qty: 10 0RF Rx Instructions: must administer with a meal/food Follow-up/Referrals: John,Lance Saxena MD [Primary Care Provider, Unknown]
[2025-04-20 00:02] VITALS: BP 145/57; O2SAT 97
[2025-04-20 00:32] VITALS: BP 134/59; O2SAT 97
[2025-04-20 01:02] VITALS: BP 145/60; O2SAT 99
[2025-04-20 01:32] VITALS: BP 134/60; O2SAT 98
== END 2025-04-20 01:47 | disposition home or self-care (01) ==
PROVIDERS: Emergency Provider Emergency Medicine; PCP Internal Medicine
DX: R11.2 Nausea with vomiting, unspecified (principal); R19.7 Diarrhea, unspecified; I10 Essential (primary) hypertension; K21.9 Gastro-esophageal reflux disease without esophagitis; Z87.891 Personal history of nicotine dependence; Z90.49 Acquired absence of other specified parts of digestive tract; Z79.899 Other long term (current) drug therapy
CPT/HCPCS: 36415; 74177; 80053; 83690; 85025; 96361; 96372; 96374; 96376; 99284; A9270; J0500; J2405; J7030; Q9967